=== PATIENT | female | born 1955 | race Caucasian/White ===

== ENCOUNTER 2025-01-22 10:15 | Outpatient (REF) | payer OTHER, SELFPAY ==
--- NOTE | ~2025-01-22 | XR_ITS ---
EXAMINATION: XR KNEE 3 VIEWS RIGHT HISTORY: M25.561 - Pain in right knee COMPARISON: There are no prior studies available for comparison. FINDINGS: Three views of the right knee are submitted. Osseous mineralization is normal. There is no fracture or dislocation. The joint spaces are preserved. The soft tissues are unremarkable. There is no joint effusion. XR/XR knee RT 3V IMPRESSION: Unremarkable examination of the right knee. Electronically signed by: Darren Gamble MD 01/22/2025 02:06 PM EDT
--- OUTSIDE RECORDS SUMMARY | 2025-01-23 11:01 | XMS_ITS | Clinical Summary ---
Author Organization [facility] Address [address] [facility] [address] [place], [place] [id number] Phone Care Team Providers Care Presser And Shaper Knitted Goods Name Role Phone Ayad Alatorre DNP Primary Care Provider [phone] Encounters Date Type Department Care Team Description 11/30/2024 Transcribe Orders Virtual Department [address] [place] [address] Sheridan Wilson PA Abnormal bone density screening [...] Info) Description 03/09/2025 9:45 AM EDT Appointment [facility], Bone Density - Main [facility] [address] [place] [address] Sheridan Wilson PA [address] [place] [address] Medical Devices Not on file Insurance MEDICARE REPLACEMENT MEDICARE REPLACEMENT MEDICARE REPLACEMENT Member Subscriber Plan / Payer (Ef fective 2024-Present) Name:Amy Bey Relation to Subscriber:Self Name:Amy Bey Payer ID:[id number] (NAIC) Group ID:Not on file Type:Medicare Address: [place] [id number] MEDICARE REPLACEMENT MEDICARE REPLACEMENT Member Subscriber Plan / Payer (Ef fective 2024-Present) Name:Amy Bey Relation to Subscriber:Self Name:Amy Bey Payer ID:[id number] (NAIC) Group ID:Not on file Type:Medicare Address: [place] [phone] Care Teams Presser And Shaper Knitted Goods Relationship Specialty Start Date End Date Ayad Alatorre, ABUNDIO [address] [place] [address] [address] [place] [address] PCP - General 12/19/24 Additional Source Comments The information contained in this document represents components of the legal health record. It is not the complete legal health record.[facility]
--- OUTSIDE RECORDS SUMMARY | 2025-01-23 11:01 | XMS_ITS | Encounter Summary ---
Author Organization [employer] Address [address] [facility] 7t [place] [address] Care Team Providers Care Ware Carrier Name Role Phone Sheridan Wilson PA-C Primary Care Provider [phone] Encounter Details Date Type Department Care Team (Late st Contact Info) Description 12/25/2024 Results Follow-Up [address] [address] Sheridan Wilson PA-C [address] [place] [address] XR Knee 1-2 Views Right Social History [...] the past 12 months, has t he [employer], gas, oil or water [employer] threatened to shut off services in your [...] Description 03/27/2025 10:20 AM EDT Office Visit [facility] [address] [place] [address] Sheridan Wilson PA-C [address] [place] [address] documented as of this encounter Visit Diagnoses Not on filedocumented in this encounter Additional Health Concerns Assessment Noted Time PHQ-9 Depression Total Score: 6 09/21/19 25 2:24 PM EDT documented as of this encounter Care Teams Ware Carrier Relationship Specialty Start Date End Date Sheridan Wilson PA-C [address] [place] [address] PCP - General Family Medicine 09/03/24 documented as of this encounter
== END 2025-01-22 10:16 | disposition home or self-care (01) ==
LOC: HO.HOSX 10:15
PROVIDERS: Visit Provider Orthopaedic Surgery
DX: M25.561 Pain in right knee (principal); M54.50 Low back pain, unspecified; M79.604 Pain in right leg
CPT/HCPCS: 73562

== ENCOUNTER 2025-01-22 13:51 | Outpatient (AMB) | payer OTHER, SELFPAY ==
--- NOTE | 2025-01-22 14:12 | MHC.OFFVIS ---
Vital Signs 01/22/25 14:13 Height 5 ft 1 in Weight 145 lb BMI 27.4 Intake Visit Reasons: [employer]MENT [employer]-Rt knee chronic pain, Low back pain Intake Note: Amy is a 69 year old male who presents with complaints of progressively worsening low back pain which radiates down her right leg as well as intermittent right knee pain. She describes her back pain as sharp and severe in nature. Her back pain has gotten worse over the last few years in spite of continued non operative treatments. She has failed the last 6 weeks of conservative treatment which has included Tylenol, anti-inflammatory medicines, trazodone, a home exercise program and physical therapy exercises. She also reports intermittent weakness in her right leg. She states that at this point her right knee pain is tolerable to her. The patient states that her back pain is ?excruciating? at times. Allergies Unable to Assess Allergy (Verified 01/22/25 14:14) Medication List - Last Reconciled 01/22/25 by Chalino Dela Cruz MD duloxetine 60 mg PO DAILY sildenafil (pulm.hypertension) 20 mg PO BID trazodone 100 mg PO BEDTIME PFSH Surgical History Hx of section Social History Household Members: None Housing: House Alcohol intake: current Alcohol intake frequency: a few times a week Patient Tobacco Use Status: Current everyday Tobacco user Tobacco use type: Cigarette Cigarettes Per Day: 12 e-Cigarette/Vaping Use: Never Used Use of substances other than those prescribed or required for medical reasons: Yes Substance Use Type: Marijuana Current occupational status: retired Cognitive needs: No Hearing needs: No Vision needs: Yes Physical Exam Vital Signs: BMI result Body Mass Index 27.4 Const Other: Well-nourished well-developed very friendly female awake alert and oriented x3 in no acute distress Back/Spine/Pelvis Other: Low back examination shows right-sided paraspinal muscle tenderness, pain with range of motion, positive straight leg raise test on the right at 70 degrees, 4/5 strength with testing of her right hip flexors and knee extensors when compared to 5/5 strength on her left side Extrem Other: Right knee examination shows a minimal effusion, mild crepitus with range of motion, mild discomfort with range of motion, no instability Results Reviewed Results Reviewed: X-rays of the patient's right knee show mild diffuse joint space narrowing, no acute bony abnormalities Assessment & Plan Assessment & Plan (1) Right knee pain: Code(s): M25.561 - Pain in right knee Category: Medical (2) Low back pain radiating to right leg: Code(s): M54.50 - Low back pain, unspecified; M79.604 - Pain in right leg Category: Medical Plan Ms. Bey presents with progressively worsening low back pain which radiates down her right leg as well as associated right leg weakness possibly due to lumbar stenosis or a disc herniation. Thus, I will send the patient for an MRI of her lumbar spine for further evaluation. I will see her back once the MRI is completed. She also has intermittent right knee discomfort due to early degenerative joint disease. At this point her right knee symptoms are tolerable to her. She will continue with her activity modifications. Feel free to call me at any time should questions regarding her orthopedic management arise. Thank you very much for asking me to see this very friendly patient. I spent 22 minutes in reviewing the patient's records and imaging studies, seeing the patient and documenting in the medical record. Orders: Orders XR knee RT 3V 01/22/25 M25.561 - Pain in right knee MR lumbar spine wo con Today M54.50 - Low back pain, unspecified, M79.604 - Pain in right leg Coding Level of Care Code New Pt Level 3 (32906) Complex EM visit Add On G2211 Diagnoses Right knee pain M25.561 Low back pain radiating to right leg M54.50; M79.604
[2025-01-22 14:13] VITALS: BMI 27.4
--- OUTSIDE RECORDS SUMMARY | 2025-01-22 14:14 | XMS_ITS | Encounter Summary ---
Author Organization [employer] Address [address] [facility] 7[address] [place] [address] Care Team Providers Care Boat Tender Name Role Phone Sheridan Wilson PA-C Primary Care Provider [phone] Encounter Details Date Type Department Care Team (Late st Contact Info) Description 12/25/2024 Results Follow-Up [address] [address] Sheridan Wilson PA-C [address] [place] [address] XR Knee 1-2 Views Right Social History Tobacco Use Types Packs/Day Years Used Date Smoking Tobacco: Every Day Cigarettes Smokeless Tobacco: Former Chew Alcohol Use Standard Drinks/Week Comments Not Asked 0 (1 standard drink = 0.6 oz pur e alcohol) occasional Alcohol Answer Date Recorded How often do you have a drink containing alcohol ? 2 12/25/2024 How many drinks containing a lcohol do you have on a typical day when you are drinking? 0 12/25/2024 How often do you have six or more drinks on one occasion? 0 12/25/2024 Depression Answer Date Recorded Patient Health Questionnaire-9 Score 6 09/20/2024 Patient Health Questionnaire-9 Score 6 09/20/2024 Last PHQ-9: Questionnaire Data Not on file 0 09/20/2024 Housing Stability Answer Date Recorded What is your housing situation today? I have alex patrick 09/20/[address] you li ve. Do you have problems with any of the following? None of the above 09/20/2024 Food Insecurity Answer Date Recorded Within the past 12 months, y ou worried that your food would run out before you got money to buy more: Never True 09/20/2024 Within the past 12 months,th e food you bought just didn't last and you didn't have enough money to get more: Never True 04/2025 Transportation Answer Date Recorded In the past 12 months, has l ack of transportation kept you from medical appts, meetings, work or from getting things needed for daily living? No 09/20/2024 Intimate Partner Violence Answer Date R ecorded Within the last year, have y ou been afraid of your partner or ex-partner? 2 09/20/2024 Within the last year, have y ou been humiliated or emotionally abused in other ways by your partner or ex-partner? 2 Within the last year, have y ou been kicked, hit, slapped, or otherwise physically hurt by your partner or ex-partner? 2 09/20/2024 Within the last year, have y ou been raped or forced to have any kind of sexual activity by your partner or ex-partner? 2 09/20/2024 Utilities Answer Date Recorded In the past 12 months, has t he [employer], gas, oil or water [employer] threatened to shut off services in your home? No 09/20/2024 Depression Answer Date Recorded Patient Health Questionnaire-2 Score 2 09/20/2024 Internet Access Answer Date Recorded Internet Access Q1 Yes 09/20/2024 Internet Access Q2 Not on file 09/20/2024 Comments Unknown Sex and Gender Information Value Date Recorded Sex Assigned at Female 09/03/2024 2:34 PM EDT Legal Sex Female 12:01 PM EDT Gender Identity Female 09/03/2024 2:34 PM EDT Sexual Orientation Straight 09/03/2024 2: 34 PM EDT documented as of this encounter Plan of Treatment Upcoming Encounters Date Type Department Care Team (Late st Contact Info) Description 03/27/2025 10:20 AM EDT Office Visit [facility] [address] [place] [address] Sheridan Wilson PA-C [address] [place] [address] documented as of this encounter Visit Diagnoses Not on filedocumented in this encounter Additional Health Concerns Assessment Noted Time PHQ-9 Depression Total Score: 6 09/21/19 25 2:24 PM EDT documented as of this encounter Care Teams Boat Tender Relationship Specialty Start Date End Date Sheridan Wilson PA-C [address] [place] [address] PCP - General Family Medicine 09/03/24 documented as of this encounter
--- OUTSIDE RECORDS SUMMARY | 2025-01-22 14:14 | XMS_ITS | Clinical Summary ---
Author Organization [facility] Address [address] [facility] [address] [place], [place] [id number] Phone Care Team Providers Care Lumber Piler Operator Name Role Phone Ayad Alatorre DNP Primary Care Provider [phone] Encounters Date Type Department Care Team Description 11/30/2024 Transcribe Orders Virtual Department [address] [place] [address] Sheridan Wilson PA Abnormal bone density screening (Primary Dx) from Last 3 Months Social History Tobacco Use Types Packs/Day Years Used Date Smoking Tobacco: Never Assessed Education Answer Date Recorded Are you interested in more education? Not on rafael e 12/26/2023 Are you concerned about learning? Not on file 12/26/2023 No 12/26/2023 No 12/26/2023 Digital Access Answer Date Recorded No 12/26/2023 No 12/26/2023 Reliable internet access at home? Not on file 12/26/2023 Device with a working camera? Not on file Comments Unknown Sex and Gender Information Value Date Recorded Sex Assigned at Not on file Legal Sex Female 9:52 PM EDT Gender Identity Not on file Sexual Orientation Not on file Plan of Treatment Upcoming Encounters Date Type Department Care Team (Late st Contact Info) Description 03/09/2025 9:45 AM EDT Appointment [facility], Bone Density - Main [facility] [address] [place] [address] Sheridan Wilson PA [address] [place] [address] Medical Devices Not on file Insurance MEDICARE REPLACEMENT MEDICARE REPLACEMENT MEDICARE REPLACEMENT Member Subscriber Plan / Payer (Ef fective 2024-Present) Name:Aym Bey Relation to Subscriber:Self Name:Amy Bey Payer ID:[id number] (NAIC) Group ID:Not on file Type:Medicare Address: [place] [id number] MEDICARE REPLACEMENT MEDICARE REPLACEMENT Member Subscriber Plan / Payer (Ef fective 2024-Present) Name:Amy Bey Relation to Subscriber:Self Name:Amy Bey Payer ID:[id number] (NAIC) Group ID:Not on file Type:Medicare Address: [place] [id number] Care Teams Lumber Piler Operator Relationship Specialty Start Date End Date Ayad Alatorre, ABUNDIO [address] [place] [address] [address] [place] [address] PCP - General 12/19/24 Additional Source Comments The information contained in this document represents components of the legal health record. It is not the complete legal health record.[facility]
== END 2025-01-22 14:27 | disposition home or self-care (01) ==
LOC: HO.HOS 13:52
PROVIDERS: PCP Student in an Organized Health Care Education/Training Program; Visit Provider Orthopaedic Surgery
DX: M25.561 Pain in right knee (principal); M54.50 Low back pain, unspecified; M79.604 Pain in right leg
CPT/HCPCS: 99203

== ENCOUNTER → 2025-01-22 13:53 | Outpatient (BNV) | payer OTHER, SELFPAY | PROVIDERS: Visit Provider Radiology Diagnostic Radiology | DX: M25.561 Pain in right knee (principal) | CPT/HCPCS: 73562 ==

== ENCOUNTER → 2025-02-08 13:04 | Outpatient (BNV) | payer OTHER, SELFPAY | PROVIDERS: Visit Provider Radiology Diagnostic Radiology | DX: M47.816 Spondylosis without myelopathy or radiculopathy, lumbar region (principal) | CPT/HCPCS: 72148 ==

== ENCOUNTER 2025-02-08 13:05 | Outpatient (REF) | payer OTHER, SELFPAY ==
--- NOTE | ~2025-02-08 | MR_ITS ---
EXAMINATION: MR LUMBAR SPINE WITHOUT CONTRAST CLINICAL INFORMATION: Low back pain, unspecified. COMPARISON: None available. TECHNIQUE: MRI of the lumbar spine was obtained using routine sequences without contrast. FINDINGS: Last rib-bearing vertebra labeled T12. No bone marrow STIR signal abnormality. Marginal osteophyte formation and disc desiccation, T10-11, T11-12 and from L2-3 to L5-S1. There is a grade 1 anterolisthesis L4-5 and to a lesser extent L3-4. Conus medullaris ends at pedicle of L1 with normal signal. T11-12: No disc herniation. No neuroforamina stenosis. T12-L1: Broad-based disc bulging. Facet joint hypertrophy. No compression upon neural elements. L1-2: Broad-based disc bulging. Facet joint hypertrophy. No compression upon neural elements. L2-3: Broad-based disc bulging. Facet joint and ligamentum flavum hypertrophy. Reduced AP diameter of the thecal sac and neuroforamina likely encroaching the L3 nerve root on the lateral recesses and the L2 exiting nerve roots. L3-4: Broad-based disc bulging. Facet joint and and ligamentum flavum hypertrophy. Grade 1 anterolisthesis resulting in central spinal canal and bilateral neuroforamina stenosis encroaching the neural elements. L4-5: Grade 1 anterolisthesis, broad-based disc bulging. Facet joint and ligamentum flavum hypertrophy resulting in central spinal canal and bilateral neuroforamina stenosis encroaching and probably compressing the neural elements. L5-S1: Broad-based disc bulging. Facet joint hypertrophy. No central spinal canal stenosis. Bilateral neuroforamina narrowing. No prevertebral compartment hematoma, mass or fluid collection. Soft tissue fullness, left adrenal gland. Hyperintense T2 lesion in the left kidney. Volume loss both psoas muscle. MR/MR lumbar spine wo con IMPRESSION: Multilevel spondylosis resulting in grade 1 anterolisthesis L4-5 and to a lesser extent L3-4 causing central spinal canal and bilateral neuroforamina stenosis at L4-5 and to a lesser extent L3-4. Electronically signed by: Jack Fitzgerald MD 02/10/2025 10:28 AM EDT
--- OUTSIDE RECORDS SUMMARY | 2025-02-08 13:13 | XMS_ITS | Encounter Summary ---
Author Organization [employer] Address [address] [facility] [address] [place] [address] Care Team Providers Care Community Relations Manager Name Role Phone Sheridan Wilson PA-C Primary Care Provider [phone] Encounter Details Date Type Department Care Team (Late st Contact Info) Description 12/12/2024 Orders Only [facility] [address] [place], [place] [id number] Provider, Not In System Social History Tobacco Use Types Packs/Day Years Used Date Smoking Tobacco: Every Day Cigarettes Smokeless Tobacco: Former Chew Alcohol Use Standard Drinks/Week Comments Not Asked 0 (1 standard drink = 0.6 oz pur e alcohol) occasional Depression Answer Date Recorded Patient Health Questionnaire-9 [...] the past 12 months, has t he [employer], gas, oil or water [employer] threatened to shut off services in your [...] Description 03/27/2025 10:20 AM EDT Office Visit [address] [address] Sheridan Wilson PA-C 8 [place] [address] documented as of this encounter Procedures Procedure Name Priority Date/Time Associated Diagnosis Comments MAMMOGRAPHY Routine 11/15/2024 11:04 AM EDT HM COLONOSCOPY Routine 03/10/2023 11:50 AM EDT documented in this encounter Results * Hm Mammography (11/15/2024 11:04 AM EDT) Anatomical Region Laterality Modality Other us Not In System Provider HEALTH MAINTENANCE Edited Result - Final * Hm Colonoscopy (03/10/2023 11:50 AM EDT) us Not In System Provider HEALTH MAINTENANCE Edited Result - Final documented in this encounter Visit Diagnoses Not on filedocumented in this encounter Additional Health Concerns Assessment Noted Time PHQ-9 Depression Total Score: 6 09/21/19 25 2:24 PM EDT documented as of this encounter Care Teams Community Relations Manager Relationship Specialty Start Date End Date Sheridan Wilson PA-C [address] [place] [address] PCP - General Family Medicine 09/03/24 documented as of this encounter
--- OUTSIDE RECORDS SUMMARY | 2025-02-08 13:13 | XMS_ITS | Clinical Summary ---
Author Organization [employer] Address [address] [facility] 7t [place] [address] Care Team Providers Care Radio Station Manager Name Role Phone Sheridan Wilson PA-C Primary Care Provider [phone] Allergies No known active allergies Medications Multiple Vitamin (multivitamin) tablet Take 1 tablet by mouth Once per day. Active b complex vitamins capsule Take 1 capsule by mouth Once per day. Active omega-3 (Fish Oil) 1200 MG capsule Take 1,200 mg by mouth Once per day. Active traZODone (Desyrel) 100 MG tabletIndications:I nsomnia, unspecified type Take 1 tablet (100 mg) by mouth at bedtime. 30 tablet 5 Active meclizine (Antivert) 25 MG tabletIndications:V ertigo Take 1 tablet (25 mg) by mouth if needed in the morning, at noon, and at bedtime for dizziness. 30 tablet 5 Active pregabalin (Lyrica) 100 MG capsuleIndications: Spinal stenosis of lumbar region, unspecified whether neurogenic claudication present Take 1 capsule (100 mg) by mouth 3 times daily. Take first dose at night to assess response 90 capsule 5 Active simvastatin (Zocor) 40 MG tabletIndications:H yperlipidemia, unspecified hyperlipidemia type Take 1 tablet (40 mg) by mouth at bedtime. 30 tablet 11 5 11/09/19 26 Active sildenafil (Revatio) 20 MG tabletIndications:R aynaud's disease without gangrene TAKE 1 TABLET BY MOUTH TWICE A DAY 180 tablet 1 5 Active DULoxetine (Cymbalta) [address] capsuleIndications: Anxiety,Spinal stenosis of lumbar region, unspecified whether neurogenic claudication present TAKE 1 CAPSULE (60 MG) BY MOUTH ONCE PER DAY. DO NOT CRUSH OR CHEW. 90 capsule 03/18/20 Active Active Problems Problem Noted Date Diagnosed Date Vertigo 09/20/2024 Anxiety 09/20/2024 Raynaud's disease without gangrene 09/20/2024 Assessment & Plan (12/25/2024 3:27 PM EDT): - Dactylitis present in all fingers. Worse since starting statin. - Discontinue statin. Refer to cardiology for ASCVD risk mitigation. - Screen for further autoimmune conditions today, given history of raynaud's and chronic pain syndromes. Orders: Rheumatoid Factor; Future JUDI Screen,IFA, with Reflex to Titer and Pattern; Future C-reactive Protein; Future Sed Rate by Modified Westergren; Future HLA-B27 Antigen; Future Spinal stenosis of cervicothoracic region 2024 Assessment & Plan (12/25/2024 3:27 PM EDT): - Pain not improved with Lyrica. Discontinue over course of 3 weeks. - Has tried multiple treatments including injections, PT, gabapentin, oxycodone. None have provided significant relief. - Not a surgical candidate per patient. Encounters Date Type Department Care Team Description 01/14/[address] [address] Sheridan Wilson PA-C 01/01/2025 Results Follow-Up [address] [address] Sheridan Wilson PA-C Rheumatoid Factor, JUDI Screen,IFA, with Reflex to Titer and Pattern, C-reactive Protein, Additional followed-up results: 3 12/25/2024 10:20 AM EDT Office Visit [address] [address] Sheridan Wilson PA-C Hand swelling (Primary Dx); Hyperlipidemia, unspecified hyperlipidemia type; Raynaud's disease without gangrene; Spinal stenosis of cervicothoracic region; Chronic pain of right knee 12/25/2024 Results Follow-Up [address] [address] Sheridan Wilson PA-C XR Knee 1-2 Views Right 12/25/[address] [address] Sheridan Wilson PA-C 12/16/[address] [phone] Sheridan Wilson PA-C Anxiety; Spinal stenosis of lumbar region, unspecified whether neurogenic claudication present 12/12/2024 Orders Only [facility] Information Management [address] [place] [address] Provider, Not In System 11/14/[address] [id number] Sheridan Wilson PA-C Raynaud's disease without gangrene from Last 3 Months Immunizations Immunization Administration Dates Next Due TD (adult), 2 Lf tetanus tox oid, preservative free, adsorbed 01/17/2018 Family History Medical History Relation Name Comments Dementia Mother Breast cancer Sister 1 Alzheimer's disease Sister 2 Relation Name Status Comments Mother Sister 1 Sister 2 Alive Social History Tobacco Use Types Packs/Day Years Used Date Smoking Tobacco: Every Day Cigarettes Smokeless Tobacco: Former Chew Tobacco Cessation:Ready to Q uit: Not Asked; Counseling Given: Not Answered Alcohol Use Standard Drinks/Week Comments Not Asked [...] the past 12 months, has t he electric, gas, oil or water company threatened to shut off services in your [...] Orientation Straight 09/03/2024 2: 34 PM EDT Last Filed Vital Signs Vital Sign Reading Time Taken Comments Blood Pressure 124/74 12/25/2024 10:20 AM EDT Pulse 85 09/20/2024 1:38 PM EDT Temperature 36.9 C (98.4 F) 09/20/2024 1:38 PM EDT Respiratory Rate - - Oxygen Saturation 91% 09/20/2024 1:38 PM EDT Inhaled Oxygen Concentration - - Weight 70.4 kg (155 lb 3.2 oz) 12/25/2024 10:20 AM EDT Height 156 cm (5' 1.42 ) 09/20/2024 1:38 PM EDT Body Mass Index 28.93 09/20/2024 1:38 PM EDT Plan of Treatment Upcoming Encounters Date Type Department Care Team (Late st Contact Info) Description 03/27/2025 10:20 AM EDT Office Visit [facility] [address] [place] [address] Sheridan Wilson PA-C [address] [place] [address] Health Maintenance Due Date Last Done Comments CT Colonography 1957 FIT DNA/Cologuard 1957 FIT 1957 FOBT 1957 Sigmoidoscopy 1957 Hepatitis C Screening 1975 DTaP/Tdap/Td Vaccines (1 - Tdap) 01/18/2018 01/17/2018 COVID-19 Vaccine ( season) 2024 04/01/2024, 05/02/2023, 05/01/2022, Additional history exists Influenza Vaccine (#1) 2025 , 05/02/2023, 05/01/2022 Depression Screening 09/20/2025 09/20/2024, 09/21/19 SDOH Screening 09/20/2025 09/20/2024 Tobacco Screening 10/21/2025 10/21/2024 Mammogram 11/15/2025 11/15/2024 Alcohol/Substance Use Screening 12/25/2025 12/25/2024 Colonoscopy 03/10/2028 03/10/2023 Colorectal Cancer Screening 03/10/2028 Lipid Panel 10/30/2029 10/30/2024 RSV Patients and Patients Aged 60 years or older (1 - 1-dose 75+ series) 2032 Zoster Vaccines Completed 09/15/2021, 07/05/2021 Pneumococcal Vaccine: 50+ Years Completed 12/21/2022 HIB Vaccines Aged Out No longer eligi ble based on patient's age to complete this topic HPV Vaccines Aged Out No longer eligi ble based on patient's age to complete this topic Hepatitis A Vaccines Aged Out No long er eligible based on patient's age to complete this topic Hepatitis B Vaccines Aged Out No long er eligible based on patient's age to complete this topic IPV Vaccines Aged Out No longer eligi ble based on patient's age to complete this topic Meningococcal B Vaccine Aged Out No l onger eligible based on patient's age to complete this topic Meningococcal Vaccine Aged Out No jessica armin eligible based on patient's age to complete this topic RSV under 20 months Aged Out No longe r eligible based on patient's age to complete this topic Rotavirus Vaccines Aged Out No longer eligible based on patient's age to complete this topic Procedures Procedure Name Priority Date/Time Associated Diagnosis Comments AMB REFERRAL TO ORTHOPAEDICS Routine 01/22/2025 Chronic pain of right knee JUDI SCREEN, IFA W/REFL TITER AND SCREEN POSITIVE Routine 12/25/2024 11:03 AM EDT HLA-B27 ANTIGEN Routine 12/25/2024 11:03 AM EDT Hand swelling SED RATE BY MODIFIED WESTERGREN Routine 12/25/2024 11:03 AM EDT Hand swelling C-REACTIVE PROTEIN Routine 12/25/2024 11 :03 AM EDT Hand swelling JUDI SCREEN, IFA, W/REFL TITER AND PATTERN Routine 12/25/2024 11:03 AM EDT Hand swelling Raynaud's disease without gangrene RHEUMATOID FACTOR Routine 12/25/2024 11: 03 AM EDT Hand swelling Raynaud's disease without gangrene COMPREHENSIVE METABOLIC PANEL Routine 11/20/2024 9:41 AM EDT Hypercalcemia HM MAMMOGRAPHY Routine 11/15/2024 11:04 AM EDT XR KNEE 1-2 VIEWS RIGHT Routine 11/15/2024 Chronic pain of right knee LIPID PANEL WITH REFLEX TO DIRECT LDL Routine 10/30/2024 11:09 AM EDT Lipid screening HM COLONOSCOPY Routine 03/10/2023 11:50 AM EDT from Last 3 Months or Most Recently Relevant to Health Maintenance Results * Referral to Orthopaedics (01/22/2025) Sheridan Wilson PA-C OUTPATIENT REFERRAL ORDERABLE S Final Result * (ABNORMAL) JUDI SCR, IFA W/Refl Titer and Pattern (12/25/2024 11:03 AM EDT) JUDI Titer 1:1280(H) titer [facility] [employer] Comment: Reference Range <1:40 Negative 1:40-1:80 Low Antibody Level >1:80 Elevated Antibody Level JUDI Pattern Nuclear, Centromer e(A) [facility] [employer] Comment: Centromere pattern is associated with limited cutaneous systemic sclerosis, CREST (Calcinosis, Raynaud's, Esophageal dysmotility, Sclerodactyly, Telangiectasia), primary biliary cholangitis (PBC), and other autoimmune diseases. AC-3: Centromere International Consensus on JUDI Patterns (https://doi.org/10.1515/bhsh-5501-4301) 12/25/2024 11:0 3 AM EDT 12/25/2024 11:04 AM EDT Sheridan Wilson PA-C LAB BLOOD ORDERABLES Final Re sult [facility] [address], [place] [address] [facility] [address] [place] [address] * HLA-B27 Antigen (12/25/2024 11:03 AM EDT) HLA-B27 Antigen Negative Negative [facility]As[facility] Blood Venous blood specimen / Unknown 12/25/2024 11:03 AM EDT 12/25/2024 11:04 AM EDT Sheridan Wilson PA-C LAB BLOOD ORDERABLES Final Re sult Performing Organization Address [facility] de Phone Number [address], [facility] [place] [address] [facility]/[place] [address] [place] [address] * Sed Rate by Modified Mengergren (12/25/2024 11:03 AM EDT) Pathologist [facility] Sed Rate By Modified Mengergren 6 < OR = 30 mm/h [facility] Blood Venous blood specimen / Unknown 12/25/2024 11:03 AM EDT 12/25/2024 11:04 AM EDT Sheridan Wilson PA-C LAB BLOOD ORDERABLES Final Re sult Performing Organization Address [facility] de Phone Number [facility] [address] [place] [address], [facility] [place] [address] [facility] [address] [place] [phone] * Rheumatoid Factor (12/25/2024 11:03 AM EDT) [facility] Rheumatoid Factor (RF) <10 <14 IU/mL [facility] Blood Venous blood specimen / Unknown 12/25/2024 11:03 AM EDT 12/25/2024 11:04 AM EDT Sheridan Wilson PA-C LAB BLOOD ORDERABLES Final Re sult Performing Organization Address [facility] de Phone Number [address], [facility] [place] [address] [facility] [address] [place] [phone] * C-reactive Protein (12/25/2024 11:03 AM EDT) C-Reactive Protein <3.0 <8.0 mg/L [facility] Blood Venous blood specimen / Unknown 12/25/2024 11:03 AM EDT 12/25/2024 11:04 AM EDT Sheridan Wilson PA-C LAB BLOOD ORDERABLES Final Re sult Performing Organization Address [facility]/ZIP Co de Phone Number [facility] [address], [place] [address] [facility] [address] [place] [address] * (ABNORMAL) JUDI Screen,IFA, with Reflex to Titer and Pattern (12/25/2024 11:03 AM EDT) [facility] JUDI Screen, IFA POSITIVE (A) NEGATIVE [facility] Comment: JUDI IFA is a first line screen for detecting the presence of up to approximately 150 autoantibodies in various autoimmune diseases. A positive JUDI IFA result is suggestive of autoimmune disease and reflexes to titer and pattern. Further laboratory testing may be considered if clinically indicated. For additional information, please refer to http://education.Nonpareil/faq/QTX618 (This link is being provided for informational/ educational purposes only.) Blood Venous blood specimen / Unknown 12/25/2024 11:03 AM EDT 12/25/2024 11:04 AM EDT Sheridan Wilson PA-C LAB BLOOD ORDERABLES Final Re sult Performing Organization Address City/[facility]/ZIP Co de Phone Number [address], [place] [address] [facility] [employer] [facility] [address] [place] [phone] * Comprehensive Metabolic Panel (11/20/2024 9:41 AM EDT) [facility] Glucose 93 65 - 99 mg/dL [facility] [employer] [facility] Comment: Fasting reference interval Urea Nitrogen (BUN) 11 7 - 25 mg/dL [facility] Creatinine, Serum 0.62 0.50 - 1.05 mg/dL [facility] eGFR 98 > OR = 60 mL/min/1. 73m2 [facility] BUN/Creatinine Ratio SEE NOTE: 6 - 22 (calc) [facility] Comment: Not Reported: BUN and Creatinine are within reference range. Sodium 139 135 - 146 mmol/L [facility] Potassium 5.3 3.5 - 5.3 mmol/L [facility] Chloride 108 98 - 110 mmol/L [facility] Carbon Dioxide 26 20 - 32 mmol/L [facility] Calcium 9.6 8.6 - 10.4 mg/dL [facility] Protein, Total 6.4 6.1 - 8.1 g/dL [facility] Albumin 3.7 3.6 - 5.1 g/dL [facility] Globulin 2.7 1.9 - 3.7 g/dL (calc) [facility] Albumin/Globuli n Ratio 1.4 1.0 - 2.5 (calc) [facility] Bilirubin, Total 0.2 0.2 - 1.2 mg/dL [facility] Alkaline Phosphatase 64 37 - 153 U/L [facility] AST 14 10 - 35 U/L [facility] ALT 12 6 - 29 U/L [facility] Blood Venous blood specimen / Unknown 11/20/2024 9:41 AM EDT 11/20/2024 9:41 AM EDT Narrative [facility] - 11/21/2024 9:29 AM EDT FASTING:YES FASTING: YES us Sheridan Wilson PA-C LAB BLOOD ORDERABLES Final Re sult [facility] [address], [place] [address] [facility] [address] [place] [address] * Hm Mammography (11/15/2024 11:04 AM EDT) Anatomical Region Laterality Modality Other Not In System Provider HEALTH MAINTENANCE Edited Result - Final * XR Knee 1-2 Views Right (11/15/2024) Anatomical Region Laterality Modality Lower Extremities, Knee Right Radiogra phic Imaging Sheridan Wilson PA-C IMG XR PROCEDURES Final Resul t * (ABNORMAL) Lipid Panel with Reflex to Direct LDL (10/30/2024 11:09 AM EDT) Cholesterol, Total 246(H) <200 mg/dL [facility] HDL Cholesterol 64 > OR = 50 mg/dL [facility] Triglycerides 140 <150 mg/dL [facility] LDL Cholesterol 156(H) mg/dL [facility] [place] [employer] Comment: Reference range: <100 Desirable range <100 mg/dL for primary prevention; <70 mg/dL for patients with CHD or diabetic patients with > or = 2 CHD risk factors. LDL-C is now calculated using the Paul-Perri calculation, which is a validated novel method providing better accuracy than the Friedewald equation in the estimation of LDL-C. Paul SS et al. MYRIAM. 2013;310(19): 8059-1331 (http://education.Clzby.[employer]/faq/WTM665) Chol/HDLC Ratio 3.8 <5.0 (calc) [facility] Non-HDL Cholesterol 182(H) <130 mg/dL [facility] Comment: For patients with diabetes plus 1 major ASCVD risk factor, treating to a non-HDL-C goal of <100 mg/dL (LDL-C of <70 mg/dL) is considered a therapeutic option. Blood 10/30/2024 11:0 9 AM EDT 10/30/2024 11:10 AM EDT Narrative [facility] - 10/31/2024 5:11 AM EDT SPLIT 10/23/2024 FROM [id number] Sheridan Wilson PA-C LAB BLOOD ORDERABLES Final Re sult [facility], [place] [address] [facility] [address] [place] [address] * Hm Colonoscopy (03/10/2023 11:50 AM EDT) us Not In System Provider HEALTH MAINTENANCE Edited Result - Final from Last 3 Months or Most Recently Relevant to Health Maintenance Insurance MEDICARE ADVANTAGE Care Teams Radio Station Manager Relationship Specialty Start Date End Date Sheridan Wilson PA-C [address] [place] [address] PCP - General Family Medicine 09/03/24
--- OUTSIDE RECORDS SUMMARY | 2025-02-08 13:13 | XMS_ITS | Encounter Summary ---
Author Organization [employer] Address [address] [facility] 7 [place] [address] Care Team Providers Care Window Glass Cutter Off Name Role Phone Sheridan Wilson PA-C Primary Care Provider [phone] Encounter Details Date Type Department Care Team ([facility] st Contact Info) Description 01/14/2025 Telephone [facility] [address] [place] [address] Sheridan Wilson PA-C [address] [place] [address] Social History Tobacco Use Types Packs/Day Years [...] the past 12 months, has t he [employer], gas, oil or water [employer] threatened to shut off services in your [...] PM EDT documented as of this encounter Miscellaneous Notes * Telephone Encounter - Jessa Marti - 01/15/2025 9:22 AM EDT Faxed OJOANN lisa, can only back date it to 01/13/25 * Telephone Encounter - Nely Ace - 01/14/2025 10:12 AM EDT Verified Insurance: Yes Referral Office:[facility] General Surgery Diagnosis Code:K57.20 Number of Visits Needed:12 NPI# of Facility: NPI# of Provider being referred to:[id number] Phone #: [phone] Fax #: [phone] Date of Service : 10/24/24 documented in this encounter Plan of Treatment Upcoming Encounters Date Type Department Care Team (Late st Contact Info) Description 03/27/2025 10:20 AM EDT Office Visit [address] [address] Sheridan Wilson PA-C [address] [place] [place] [address] documented as of this encounter Visit Diagnoses Not on filedocumented in this encounter Additional Health Concerns Assessment Noted Time PHQ-9 Depression Total Score: 6 09/21/19 25 2:24 PM EDT documented as of this encounter Care Teams Window Glass Cutter Off Relationship Specialty Start Date End Date Sheridan Wilson PA-C [address] [place] [address] PCP - General Family Medicine 09/03/24 documented as of this encounter
--- OUTSIDE RECORDS SUMMARY | 2025-02-08 13:13 | XMS_ITS | Encounter Summary ---
Author Organization [employer] Address [address] [facility] 7t [place] [address] Care Team Providers Care Pet Groomer Name Role Phone Sheridan Wilson PA-C Primary Care Provider [phone] Encounter Details Date Type Department Care Team (Late st Contact Info) Description 12/25/2024 Results Follow-Up [address] [address] Sheridan Wilson PA-C [address] [place] [address] XR Knee 1-2 Views Right Social History [...] the past 12 months, has t he [employer], gas, oil or water [employer] threatened to shut off services in your [...] Description 03/27/2025 10:20 AM EDT Office Visit [facility] [address] [place] [address] Sheridan Wilson PA-C [address] [place] [address] documented as of this encounter Visit Diagnoses Not on filedocumented in this encounter Additional Health Concerns Assessment Noted Time PHQ-9 Depression Total Score: 6 09/21/19 25 2:24 PM EDT documented as of this encounter Care Teams Pet Groomer Relationship Specialty Start Date End Date Sheriadn Wilson PA-C [address] [place] [address] PCP - General Family Medicine 09/03/24 documented as of this encounter
--- OUTSIDE RECORDS SUMMARY | 2025-02-08 13:13 | XMS_ITS | Encounter Summary ---
Author Organization [employer] Address [address] [place] [address] 7 [place] [address] Care Team Providers Care Certified Welding Inspector Name Role Phone Sheridan Wilson PA-C Primary Care Provider [phone] Reason for Referral * Consultation (Routine) - Authorized Specialty Diagnoses / Procedures Referred By Tommy anderson Referred To Contact Diagnoses Raynaud's disease without gangrene Positive JUDI (antinuclear antibody) Sheridan Wilson PA-C [address] [place] [address] Phone: tel: fax: Maribell Hebert MD [address] [place] [address] Phone: tel: fax: Referral ID Status Reason Start Date Expiration Date Visits Requested Visits Authorized [id number] Authorized Specialty Services Required 01/10/2025 01/10/2026 1 1 Encounter Details Date Type Department Care Team (Late st Contact Info) Description 01/01/2025 Results Follow-Up [facility] [address] [place] [address] Sheridan Wilson PA-C [address] [place] [address] Rheumatoid Factor, JUDI Screen,IFA, with Reflex to Titer and Pattern, C-reactive Protein, Additional followed-up results: 3 Social History Tobacco Use Types Packs/Day Years [...] is your housing situation today? I have alexhardeep patrick 09/20/[address] you [...] encounter Miscellaneous Notes * Telephone Encounter - Elena Ahmadi - 01/01/2025 1:24 PM EDT Returning a missed call for results. Please call again [phone] documented in this encounter Plan of Treatment Upcoming Encounters Date Type Department Care Team (Late st Contact Info) Description 03/27/2025 10:20 AM EDT Office Visit [address] [address] Sheridan Wilson PA-C [address] [place] [address] Scheduled Referrals Name Type Priority Associated Diagnoses Order Schedule Referral to Rheumatology Outpatient Referral Routine Raynaud's disease without gangrene Positive JUDI (antinuclear antibody) Expected: 01/01/2025 (Approximate), Expires: 01/01/2026 documented as of this encounter Visit Diagnoses Diagnosis Raynaud's disease without gangrene- Primary Positive JUDI (antinuclear antibody) Other and unspecified nonspecific immunological findings documented in this encounter Additional Health Concerns Assessment Noted Time PHQ-9 Depression Total Score: 6 09/21/19 2:24 PM EDT documented as of this encounter Care Teams Certified Welding Inspector Relationship Specialty Start Date End Date Sheridan Wilson PA-C [address] [place] [address] PCP - General Family Medicine 09/03/24 documented as of this encounter
--- OUTSIDE RECORDS SUMMARY | 2025-02-08 13:13 | XMS_ITS | Clinical Summary ---
Author Organization [facility] Address [address] [facility] [address] [place] [address] Phone Care Team Providers Care Test Data Developer Name Role Phone Dominiquepeter Ayad F SEISMIC OBSERVER Primary Care Provider [phone] Encounters Date Type Department Care Team Description 11/30/2024 Transcribe Orders Virtual Department [address] [place] [address] Sheridan Wilson PA Abnormal bone density screening [...] Info) Description 03/09/2025 9:45 AM EDT Appointment [facility], Bone Density - Main [facility] [address] [place] [address] Sheridan Wilson PA [address] [place] [address] Medical Devices Not on file Insurance MEDICARE REPLACEMENT MEDICARE REPLACEMENT MEDICARE REPLACEMENT Member Subscriber Plan / Payer (Ef fective 2024-Present) Name:Amy Bey Relation to Subscriber:Self Name:Amy Bey Payer ID:[id number] (NAIC) Group ID:Not on file Type:Medicare Address: [place] [id number] MEDICARE REPLACEMENT MEDICARE REPLACEMENT Member Subscriber Plan / Payer (Ef fective 2024-Present) Name:Amy Bey Relation to Subscriber:Self Name:Amy Bey Payer ID:[id number] (NAIC) Group ID:Not on file Type:Medicare Address: [place] [id number] Care Teams Test Data Developer Relationship Specialty Start Date End Date Ayad Alatorre NP [address] [place] [address] [address] [place] [address] PCP - General 12/19/24 Additional Source Comments The information contained in this document represents components of the legal health record. It is not the complete legal health record.[facility]
== END 2025-02-08 13:06 | disposition home or self-care (01) ==
LOC: HO.MRI 13:05
PROVIDERS: Visit Provider Orthopaedic Surgery
DX: M54.50 Low back pain, unspecified (principal); M79.604 Pain in right leg
CPT/HCPCS: 72148

== ENCOUNTER 2025-02-28 09:46 | Outpatient (REF) | payer OTHER, SELFPAY ==
--- NOTE | ~2025-02-28 | XR_ITS ---
Exam: 4 view lumbar spine. TECHNIQUE: AP, and lateral: Flexion, neutral, and extension view x-rays of the lumbar spine. Comparison MRI February 08, 2025 INDICATION: Low back pain FINDINGS: There is moderate atherosclerotic calcifications in the distal aorta and common iliac arteries. There are 5 nonrib-bearing lumbar segments. There is subtle anterolisthesis at L3-4. L4-5 demonstrates grade 1 anterolisthesis similar to the prior MRI. With flexion and extension, there is no sign of instability. There is facet sclerosis and osteophytes at L3-4, L4-5, and L5-S1. XR/XR lumbar spine 4V min Impression: L4-5 demonstrates grade 1 anterolisthesis without instability. There is facet osteoarthritis at L3-4, L4-5, and L5-S1. Electronically signed by: Rocco Matos MD 02/28/2025 10:39 AM EDT
--- NOTE | ~2025-02-28 | XR_ITS ---
EXAMINATION: XR LUMBAR SPINE 1 VIEW HISTORY: M54.50 - Low back pain, unspecified COMPARISON: Comparison is made with the prior examination performed earlier in the day. FINDINGS: Two flexion lateral views of the lumbar spine are submitted. Again seen is grade I spondylolisthesis of L4 on L5. There appears to be slight spondylolisthesis of L5 on S1 seen on one of the images. The vertebral bodies maintain normal height. There is calcification of the abdominal aorta. XR/XR lumbar spine 1V IMPRESSION: Grade I spondylolisthesis of L4 on L5. Probable slight spondylolisthesis of L5 on S1, seen only on one image. Electronically signed by: Darren Gamble MD 02/28/2025 11:30 AM EDT
== END 2025-02-28 09:47 | disposition home or self-care (01) ==
LOC: HO.HOSX 09:46
PROVIDERS: Referring Provider Orthopaedic Surgery; Visit Provider Physician Assistant
DX: M54.50 Low back pain, unspecified (principal); M79.604 Pain in right leg
CPT/HCPCS: 72020; 72110

== ENCOUNTER 2025-02-28 09:46 | Outpatient (AMB) | payer OTHER, SELFPAY ==
[2025-02-28 09:55] VITALS: BMI 29.3
--- NOTE | 2025-02-28 09:55 | HO.SPINEOV ---
Vital Signs 02/28/25 09:55 Height 5 ft 1 in Weight 155 lb BMI 29.3 Intake Visit Reasons: spinal stenosis Intake Note: Ms. Bey is here today c/o back,hip and knee pain. Rotary Drill Operator Required: No Allergies Unable to Assess Allergy (Verified 02/28/25 09:56) Physical Exam Vital Signs: BMI result Body Mass Index 29.3 Assessment & Plan Assessment & Plan (1) Low back pain radiating to right leg: Code(s): M54.50 - Low back pain, unspecified; M79.604 - Pain in right leg Category: Medical Plan Dear Dr Dela Cruz, Thank you for referring Mrs Bey to our office today. She is a very nice 69-year-old female who has had issues with her low back now for 20 years. It has gotten worse over the last few years. She describes as diffuse all encompassing pain in her low back that radiates down into her right buttock, right posterolateral thigh. It is aggravated with standing and walking. It can be present with sitting or lying down though. Through the years it has gotten steadily worse. She was seen at [facility] and underwent a rigorous amount of conservative treatment including physical therapy and cortisone injections. She underwent facet blocks in the lower area of her lumbar spine as well as follow-up rhizotomy but unfortunately the pain never went away. She was on Motrin for a long time but had to stop that is secondary to recent colon surgery. She just takes Tylenol now as needed but it really does not help all that much. The pain is intense and extremely debilitating. She has a lumbar MRI done here at [facility] showing facet arthropathy, spondylolisthesis and stenosis. PMH: She has history of Raynaud's, she has a history of diverticulitis, underwent colon resection last year with subsequent reversal of her ostomy. She has had surgery on her jaw, ankle and . Denies any cardiopulmonary problems, liver or kidney disease. No history of bleeding disorders, blood clots or cancer. Social hx: Smokes 3/4 of a pack a day, occasional marijuana, occasional alcohol Medications: Sildenafil which she takes for her Raynaud's, trazodone, duloxetine Allergies: None Physical exam: Awake alert oriented, tearful at times describing the amount of pain she is in. She walks with a limp an antalgic gait. Strength and reflexes are normal. Imaging review: Lumbar MRI done at [facility] in 2024, compared to MRI done at [facility] in 2021 demonstrates development of a grade 1 spondylolisthesis at L4-5. She has a relatively tall disc height. She has facet arthropathy at L4-5. Not reported on the radiology reading, but present on the study on the STIR sequence she has stress related edema in the pedicles of L4 and L5. X-rays done in the office demonstrate advancement anteriorly of the L4 body in an upright position suggestive of dynamic instability. Impression: 69-year-old female with chronic low back pain and right lower extremity pain presents for evaluation in the setting of a spondylolisthesis at L4-5 with facet arthropathy, STIR sequence showing some stress reaction in the pedicles of L4 and L5 with standing x-ray showing evidence of anterior translation of L4. This is best seen on the neutral steady, as the flexion studies are somewhat rotated. We repeated the study but it still is not great quality x-ray on the flexion view. Dr. Simpson is willing to offer her a transforaminal lumbar interbody fusion. Unfortunately we can not do an oblique lumbar interbody fusion given a history of abdominal surgery. We would like to understand her bone quality a little bit better 1st as she is a lifelong smoker and her x-rays seem to demonstrate some degree of osteopenia or osteoporosis. We did talk about quitting smoking 6 weeks prior to surgery to optimize her before surgery. She is going to come back and see us after we obtain noncontrast lumbar CT. At that point we can have a better discussion of the possible risk of pseudoarthrosis. We did briefly discuss transforaminal lumbar interbody fusion, risks, benefits etc.. Thank you for allowing us to care for your patient. The total time spent with this visit with this patient was 45 minutes reviewing history, physical exam, lumbar imaging review, and implementation of treatment plan or further diagnostic testing José Miguel Simpson MD,PhD [facility] Orders: Orders XR lumbar spine 4V min Today M54.50 - Low back pain, unspecified, M79.604 - Pain in right leg XR lumbar spine 1V Today M54.50 - Low back pain, unspecified, M79.604 - Pain in right leg Coding Level of Care Code New Pt Level 4 (54106) Diagnoses Low back pain radiating to right leg M54.50; M79.604
--- OUTSIDE RECORDS SUMMARY | 2025-02-28 10:22 | XMS_ITS | Encounter Summary ---
Author Organization [employer] Address [address] [facility] 7t [place] [address] Care Team Providers Care Body Shop Estimator Name Role Phone Sheridan Wilson PA-C Primary Care Provider [phone] Encounter Details Date Type Department Care Team (Late st Contact Info) Description 12/12/2024 Orders Only [facility] [address] [place], [place] [id number] Provider, Not In System Social History Tobacco [...] the past 12 months, has t he [employer], gas, oil or water [employer] threatened to shut off services in your [...] Description 03/27/2025 10:20 AM EDT Office Visit [address] [address] Sheridan Wilson PA-C 8 [place] [address] documented as of this encounter Procedures Procedure [...] documented as of this encounter Care Teams Body Shop Estimator Relationship Specialty Start Date End Date Sheridan Wilson PA-C [address] [place] [address] PCP - General Family Medicine 09/03/24 documented as of this encounter
--- OUTSIDE RECORDS SUMMARY | 2025-02-28 10:22 | XMS_ITS | Encounter Summary ---
Author Organization [employer] Address [address] [facility] 7 [place] [address] Care Team Providers Care Technical Illustrator Name Role Phone Sheridan Wilson PA-C Primary Care Provider [phone] Encounter Details Date Type Department Care Team ([facility] st Contact Info) Description 01/14/2025 Telephone [facility] [address] [place] [address] Sheridan Wilson PA-C [address] [place] [address] Social History Tobacco Use Types Packs/Day [...] the past 12 months, has t he [employer], gas, oil or water [place] threatened to shut off services in your [...] 10:12 AM EDT Verified Insurance: Yes Referral Office:[facility] General Surgery Diagnosis Code:K57.20 Number of Visits Needed:12 NPI# of Facility: NPI# of Provider being referred to:[id number] Phone #: [phone] Fax #: [phone] Date of Service : 10/24/24 documented in this encounter Plan of Treatment Upcoming Encounters Date Type Department Care Team (Late st Contact Info) Description 03/27/2025 10:20 AM EDT Office Visit [address] [address] Sheridan Wilson PA-C [address] [place] [address] documented as of this encounter Visit Diagnoses Not on filedocumented in this encounter Additional Health Concerns Assessment Noted Time PHQ-9 Depression Total Score: 6 09/21/19 25 2:24 PM EDT documented as of this encounter Care Teams Technical Illustrator Relationship Specialty Start Date End Date Sheridan Wilson PA-C 8 [place] [address] PCP - General Family Medicine 09/03/24 documented as of this encounter
--- OUTSIDE RECORDS SUMMARY | 2025-02-28 10:22 | XMS_ITS | Clinical Summary ---
Author Organization [employer] Address [address] [facility] 7t [place] [address] Care Team Providers Care Religious Ritual Slaughterer Name Role Phone Sheridan Wilson PA-C Primary Care Provider Allergies No known active allergies Medications Multiple [...] Type Department Care Team Description 01/14/[address] [address] Sheridan Wilson PA-C 01/01/2025 Results Follow-Up [address] [address] Sheridan Wilson PA-C Rheumatoid Factor, JUDI Screen,IFA, with Reflex to Titer and Pattern, C-reactive Protein, Additional followed-up results: 3 12/25/2024 10:20 AM EDT Office Visit [address] [address] Sheridan Wilson PA-C Hand swelling (Primary Dx); Hyperlipidemia, unspecified hyperlipidemia type; Raynaud's disease without gangrene; Spinal stenosis of cervicothoracic region; Chronic pain of right knee 12/25/2024 Results Follow-Up [address] [address] Sheridan Wilson PA-C XR Knee 1-2 Views Right 12/25/[address] [phone] Sheridan Wilson PA-C 12/16/[address] [address] Sheridan Wilson PA-C Anxiety; Spinal stenosis of lumbar region, unspecified whether neurogenic claudication present 12/12/2024 Orders Only [facility] Information Management [address] [place] [address] Provider, Not In System from Last 3 Months Immunizations Immunization Administration [...] the past 12 months, has t he [employer], gas, oil or water [employer] threatened to shut off services in your [...] Description 03/27/2025 10:20 AM EDT Office Visit [facility] [address] [place] [address] Sheridan Wilson PA-C [address] [place] [address] Health Maintenance Due Date Last Done Comments CT Colonography 1957 FIT DNA/Cologuard 1957 FIT 1957 FOBT 1957 Sigmoidoscopy 1957 Hepatitis C Screening 1975 DTaP/Tdap/Td Vaccines (1 - Tdap) 01/18/2018 01/17/2018 COVID-19 Vaccine ( season) 2025 04/01/2024, 05/02/2023, 05/01/2022, Additional history exists Influenza [...] EDT Hand swelling Raynaud's disease without gangrene HM MAMMOGRAPHY Routine 11/15/2024 11:04 AM EDT LIPID PANEL WITH REFLEX TO DIRECT LDL Routine 10/30/2024 11:09 AM EDT Lipid screening HM COLONOSCOPY Routine 03/10/2023 11:50 AM EDT from Last 3 Months or Most Recently Relevant to Health Maintenance Results * Referral to Orthopaedics (01/22/2025) us Sheridan Wilson PA-C OUTPATIENT REFERRAL ORDERABLE S Final Result * (ABNORMAL) JUDI SCR, IFA W/Refl Titer and Pattern (12/25/2024 11:03 AM EDT) JUDI Titer 1:1280(H) titer [employer] Comment: Reference Range <1:40 Negative 1:40-1:80 Low Antibody Level >1:80 Elevated Antibody Level JUDI Pattern Nuclear, Centromer e(A) [employer] [place] [employer] Comment: Centromere pattern is associated with limited cutaneous systemic sclerosis, CREST (Calcinosis, Raynaud's, Esophageal dysmotility, Sclerodactyly, Telangiectasia), primary biliary cholangitis (PBC), and other autoimmune diseases. AC-3: Centromere International Consensus on UJDI Patterns (https://doi.org/10.1515/fbdj-1362-0316) 12/25/2024 11:0 3 AM EDT 12/25/2024 11:04 AM EDT us Sheridan Wilson PA-C LAB BLOOD ORDERABLES Final Re sult Performing Organization Address City/[facility]/ZIP Co de Phone Number [address], [place] [address] [employer] [facility] [address] [address] * HLA-B27 Antigen (12/25/2024 11:03 AM EDT) HLA-B27 Antigen Negative Negative [facility]/Asher BEARD Blood Venous blood specimen / Unknown 12/25/2024 11:03 AM EDT 12/25/2024 11:04 AM EDT us Sheridan Wilson PA-C LAB BLOOD ORDERABLES Final Re sult [address], [place] [address] Ubaldo One[place] [address] [facility] KISHA Villatoro * Sed Rate by Ban Monk (12/25/2024 11:03 AM EDT) Sed Rate By Modified Aleshia 6 < OR = 30 mm/h [facility] Blood Venous blood specimen / Unknown 12/25/2024 11:03 AM EDT 12/25/2024 11:04 AM EDT Sheridan Wilson PA-C LAB BLOOD ORDERABLES Final Re sult Performing Organization Address [facility] Co de Phone Number [facility] [address] [place] [address], [place] [address] [employer] [place] [employer] [address] [place] [phone] * Rheumatoid Factor (12/25/2024 11:03 AM EDT) Rheumatoid Factor (RF) <10 <14 IU/mL [facility] [employer] Blood Venous blood specimen / Unknown 12/25/2024 11:03 AM EDT 12/25/2024 11:04 AM EDT Sheridan Wilson PA-C LAB BLOOD ORDERABLES Final Re sult Performing Organization Address [facility] Co de Phone Number [facility] [address] [place] [address], [place] [address] [employer] [place] [employer] [address] [place] [phone] * C-reactive Protein (12/25/2024 11:03 AM EDT) C-Reactive Protein <3.0 <8.0 mg/L [facility] [employer] Blood Venous blood specimen / Unknown 12/25/2024 11:03 AM EDT 12/25/2024 11:04 AM EDT Sheridan Wilson PA-C LAB BLOOD ORDERABLES Final Re sult [facility] [address], [place] [address] [employer] [place] [employer] [address] [place] [address] * (ABNORMAL) JUDI Screen,IFA, with Reflex to Titer and Pattern (12/25/2024 11:03 AM EDT) JUDI Screen, IFA POSITIVE (A) NEGATIVE [employer] [place] [employer] Comment: JUDI IFA is a first line screen for detecting the presence of up to approximately 150 autoantibodies in various autoimmune diseases. A positive JUDI IFA result is suggestive of autoimmune disease and reflexes to titer and pattern. Further laboratory testing may be considered if clinically indicated. For additional information, please refer to http://education.Memento/faq/FWI049 (This link is being provided for informational/ educational purposes only.) Blood Venous blood specimen / Unknown 12/25/2024 11:03 AM EDT 12/25/2024 11:04 AM EDT us Sheridan Wilson PA-C LAB BLOOD ORDERABLES Final Re sult [facility] [address], [place] [address] [employer] [place] [employer] [address] [place] [address] * Hm Mammography (11/15/2024 11:04 AM EDT) Anatomical Region Laterality Modality Other us Not In System Provider HEALTH MAINTENANCE Edited Result - Final * (ABNORMAL) Lipid Panel with Reflex to Direct LDL (10/30/2024 11:09 AM EDT) Cholesterol, Total 246(H) <200 mg/dL [employer] [place] [employer] HDL Cholesterol 64 > OR = 50 mg/dL [employer] [place] [employer] Triglycerides 140 <150 mg/dL [employer] [place] [employer] LDL Cholesterol 156(H) mg/dL [facility] [employer] [place] [employer] Comment: Reference range: <100 Desirable range <100 mg/dL for primary prevention; <70 mg/dL for patients with CHD or diabetic patients with > or = 2 CHD risk factors. LDL-C is now calculated using the Cinthia calculation, which is a validated novel method providing better accuracy than the Friedewald equation in the estimation of LDL-C. Paul LAU et al. MYRIAM. 2013;310(19): 6368-2662 (http://education.Augure.GreenWave Reality/faq/YOM996) Chol/HDLC Ratio 3.8 <5.0 (calc) [employer] [place] [employer] Non-HDL Cholesterol 182(H) <130 mg/dL [employer] [place] [employer] Comment: For patients with diabetes plus 1 major ASCVD risk factor, treating to a non-HDL-C goal of <100 mg/dL (LDL-C of <70 mg/dL) is considered a therapeutic option. Blood 10/30/2024 11:0 9 AM EDT 10/30/2024 11:10 AM EDT Narrative [facility] - 10/31/2024 5:11 AM EDT SPLIT 10/23/2024 FROM [id number] us Sheridan Wilson PA-C LAB BLOOD ORDERABLES Final Re sult [facility] [address] [place] [address] [employer] [place] [employer] [address] [place] [address] * Hm Colonoscopy (03/10/2023 11:50 AM EDT) us Not In System Provider HEALTH MAINTENANCE Edited Result - Final from Last 3 Months or Most Recently Relevant to Health Maintenance Insurance [facility] MEDICARE ADVANTAGE Care Teams Religious Ritual Slaughterer Relationship Specialty Start Date End Date Sheridan Wilson PA-C [address] [place] [address] PCP - General Family Medicine 09/03/24
--- OUTSIDE RECORDS SUMMARY | 2025-02-28 10:22 | XMS_ITS | Clinical Summary ---
Author Organization [facility] Address [address] [facility] [address] [place], [place] [phone] Phone Care Team Providers Care Vibrator Operator Name Role Phone Ayad Alatorre DNP Primary Care Provider [phone] Encounters Date Type Department Care Team Description 11/30/2024 Transcribe Orders Virtual Department [address] [place] [address] Sheridan Wilson PA Abnormal bone density screening [...] Info) Description 03/09/2025 9:45 AM EDT Appointment [facility], Bone Density - Main [facility] [address] [place] [address] Sheridan Wilson PA [address] [place] [address] [employer] Not on file Insurance MEDICARE REPLACEMENT MEDICARE REPLACEMENT MEDICARE REPLACEMENT Member Subscriber Plan / Payer (Ef fective 2024-Present) Name:Amy Bey Relation to Subscriber:Self Name:Amy Bey Payer ID:[id number] (NAIC) Group ID:Not on file Type:Medicare Address: [place] [id number] MEDICARE REPLACEMENT MEDICARE REPLACEMENT Member Subscriber Plan / Payer (Ef fective 2024-Present) Name:Amy Bey Relation to Subscriber:Self Name:Amy Bey Payer ID:[id number] (NAIC) Group ID:Not on file Type:Medicare Address: [place] [id number] Care Teams Vibrator Operator Relationship Specialty Start Date End Date Ayad Alatorre, ABUNDIO [address] [place] [address] [address] [place] [address] PCP - General 12/19/24 Additional Source Comments The information contained in this document represents components of the legal health record. It is not the complete legal health record.[facility]
--- OUTSIDE RECORDS SUMMARY | 2025-02-28 10:22 | XMS_ITS | Encounter Summary ---
Author Organization [employer] Address [address] [place] [address] 7 [place] [address] Care Team Providers Care Imaging Manager Name Role Phone Sheridan Wilson PA-C Primary Care Provider [phone] Reason for Referral * Consultation (Routine) - Authorized Specialty Diagnoses / Procedures Referred By Tommy anderson Referred To Contact Diagnoses Raynaud's disease without gangrene Positive JUDI (antinuclear antibody) Sheridan Wilson PA-C [address] [place] [address] Phone: tel: fax: Maribell Hebert MD [address] [place] [address] Phone: tel: fax: Referral ID Status Reason Start Date Expiration Date Visits Requested Visits Authorized [id number] Authorized Specialty Services Required 01/10/2025 01/10/2026 1 1 Encounter Details Date Type Department Care Team (Late st Contact Info) Description 01/01/2025 Results Follow-Up [facility][1] [address] [place] [address] Sheridan Wilson PA-C [address] [place] [address] Rheumatoid Factor, JUDI Screen,IFA, with Reflex [...] missed call for results. Please call again [phone] documented in this encounter Plan of Treatment Upcoming Encounters Date Type Department Care Team (Late st Contact Info) Description 03/27/2025 10:20 AM EDT Office Visit [address] [address] Sheridan Wilson PA-C [address] [place] [address] Scheduled Referrals Name Type Priority Associated Diagnoses [...] documented as of this encounter Care Teams Imaging Manager Relationship Specialty Start Date End Date Sheridan Wilson PA-C [address] [place] [address] PCP - General Family Medicine 09/03/24 documented as of this encounter
--- OUTSIDE RECORDS SUMMARY | 2025-02-28 10:22 | XMS_ITS | Encounter Summary ---
Author Organization [employer] Address [address] [facility] 7t [place] [address] Care Team Providers Care Rn Pediatric Icu Name Role Phone Sheridan Wilson PA-C Primary Care Provider [phone] Encounter Details Date Type Department Care Team (Late st Contact Info) Description 12/25/2024 Results Follow-Up [address] [address] Sheridan Wilson PA-C [address] [place] [address] XR Knee 1-2 Views Right Social History [...] the past 12 months, has t he [employer], gas, oil or water [employer] threatened to shut off services in your [...] Description 03/27/2025 10:20 AM EDT Office Visit [facility] [address] [place] [address] Sheridan Wilson PA-C 8 [place] [address] documented as of this encounter Visit Diagnoses Not on filedocumented in this encounter Additional Health Concerns Assessment Noted Time PHQ-9 Depression Total Score: 6 09/21/19 25 2:24 PM EDT documented as of this encounter Care Teams Rn Pediatric Icu Relationship Specialty Start Date End Date Sheridan Wilson PA-C [address] [place] [address] PCP - General Family Medicine 09/03/24 documented as of this encounter
== END 2025-02-28 11:00 | disposition home or self-care (01) ==
LOC: HO.HNS 09:47
PROVIDERS: Referring Provider Orthopaedic Surgery; Visit Provider Physician Assistant
DX: M54.50 Low back pain, unspecified (principal); M79.604 Pain in right leg
CPT/HCPCS: 99204

== ENCOUNTER → 2025-02-28 10:15 | Outpatient (BNV) | payer OTHER, SELFPAY | PROVIDERS: Referring Provider Orthopaedic Surgery; Visit Provider Radiology Diagnostic Radiology | DX: M54.50 Low back pain, unspecified (principal) | CPT/HCPCS: 72110 ==

== ENCOUNTER 2025-04-05 09:01 | Outpatient (REF) | payer OTHER, MEDICAID, SELFPAY ==
--- NOTE | ~2025-04-05 | CT_ITS ---
CLINICAL HISTORY: M54.50 - Low back pain, unspecified CT lumbar spine without contrast Comparison: MR - MR LUMBAR SPINE WO CON - 02/08/25 13:09 EDT Findings: Moderate multilevel facet arthropathy is present. Mild multilevel marginal osteophyte formation is also seen. Vertebral body heights and disc spaces are well-maintained. No acute fracture is identified. There is mild grade 1 anterolisthesis of L3 and and L4, similar to prior exam. Neural foraminal stenosis is seen at L3/4 and L4/5 bilaterally. There is no canal stenosis. Scattered atherosclerotic disease is present with 2.7 cm fusiform infrarenal abdominal aortic aneurysm. IMPRESSION: 1. Moderate degenerative changes in the lumbar spine, predominantly involving the facet joints. 2. Neural foraminal stenosis at L3/4 and L4/5 bilaterally. 3. Mild grade 1 anterolisthesis of L3 and L4, similar to prior exam. 4. 2.7 cm fusiform infrarenal abdominal aortic aneurysm. Recommend follow-up CT exam every 3 years. This document has been electronically signed by: Chelsea Olmstead on 04/08/2025 09:00:53
== END 2025-04-05 09:02 | disposition home or self-care (01) ==
LOC: HO.CT 09:01
PROVIDERS: PCP Student in an Organized Health Care Education/Training Program; Visit Provider Physician Assistant
DX: M54.50 Low back pain, unspecified (principal); M79.604 Pain in right leg; M48.061 Spinal stenosis, lumbar region without neurogenic claudication
CPT/HCPCS: 72131

== ENCOUNTER → 2025-04-05 09:06 | Outpatient (BNV) | payer OTHER, MEDICAID, SELFPAY | PROVIDERS: PCP Student in an Organized Health Care Education/Training Program; Visit Provider Radiology Vascular & Interventional Radiology | DX: M51.360 Other intervertebral disc degeneration, lumbar region with discogenic back pain only (principal); I71.43 Infrarenal abdominal aortic aneurysm, without rupture; M48.062 Spinal stenosis, lumbar region with neurogenic claudication | CPT/HCPCS: 72131 ==

== ENCOUNTER 2025-04-10 11:18 | Outpatient (AMB) | payer OTHER, MEDICAID, SELFPAY ==
--- NOTE | 2025-04-10 11:21 | MHC.OFFVIS ---
Vital Signs 04/10/25 11:22 Height 5 ft 1 in Weight 145 lb BMI 27.4 BP 167/91 H Blood Pressure Location Rt brachial Position Sitting Respiration 16 Pulse 95 Pulse Source Pulse Oximeter Pulse Oximetry (%) 96 Oxygen Delivery Method Room Air Intake Visit Reasons: NEUROFORAMINAL STENOSIS OF LUMBAR SPINE Pigment And Lacquer Mixer Required: No Accompanied by: Self / Same As Patient Allergies Unable to Assess Allergy (Verified 04/10/25 11:25) HPI Comments Details: Amy is very pleasant 70 years old female who presents in my office with complains on pain in the lower back with radiation of the pain down to the right lower extremity to the level of the knee but not below that level. She reports flexing forward as well as flexing backwards both aggravate her pain. Standing increases her pain. Laying down on the left side alleviate her pain. She is unable to sleep normally can not do activities of daily living, she is able to take care of herself but she is unable to function normally. She is retired individual. She reported that her pain started 20 years ago and she does not know what is the cause of her pain. She reports her pain in terms of tissue damage as jumping, flushing, shooting, sharp, cutting, lacerating, dull, aching, heavy sensation, fearful fried full and terrifying sensation. She had multiple images duration of the spinal surgery by Dr. Mancini MRI and CT scan. Those images demonstrated some stress reaction from the spondylolisthesis on the facet joints with moderate foraminal stenosis L4-5 and L5-S1. She had physical therapy 1.5 years ago and she reported minimal help with the pain. She had chiropractic manipulations when she was 22 years old she does not remember if it was helping her pain. She received shoulder injections but Nevro back injections by her primary care physician her past medical history significant for Raynaud phenomenon. She is taking sildenafil 20 mg b.i.d. and she has problem sleeping. No other past medical history. Her past surgical history significant for ankle fracture in 80 meniscal tear in 1989 and stomach and lower colon surgery in 2023. She admits smoking cigarettes (with Raynaud's syndrome!!!) She is smoking half a pack a day. She denies drinking alcohol drinks 1 cup of coffee a day and she consumes cannabis almost daily in the form of gummies. PFSH Surgical History Hx of section Social History Household Members: None Housing: House Alcohol intake: current Alcohol intake frequency: a few times a week Patient Tobacco Use Status: Current everyday Tobacco user Tobacco use type: Cigarette Cigarettes Per Day: 12 e-Cigarette/Vaping Use: Never Used Substance Use Type: Marijuana Current occupational status: retired Cognitive needs: No Hearing needs: No Vision needs: Yes Review of Systems Const All systems reviewed & are unremarkable except as noted in HPI and below ENT Reports Normal hearing present Neuro Reports Normal hearing present, Denies Abnormal speech present, Denies confusion and Denies Sensory deficit (Neuro) Psych Denies confusion Physical Exam Vital Signs: Last Vital Signs Pulse 95 04/10/25 11:22 Resp 16 04/10/25 11:22 BP 167/91 H 04/10/25 11:22 Pulse Ox 96 04/10/25 11:22 Oxygen Delivery Method Room Air 04/10/25 11:22 BMI result Body Mass Index 27.4 Const General: no acute distress; No confusion Orientation/consciousness: patient oriented x3 and No confusion Eyes General: appearance normal, both eyes and all related structures Pupils: Equal, round and reactive pupils present EOM: EOMs intact bilaterally Neck Neck: Yes full ROM Chest Chest palpation & inspection: normal inspection of the chest Resp Effort & Inspection: normal respiratory effort, able to speak in complete sentences, normal respiratory pattern, no audible wheezes and no cough Cardio Jugular venous distension: no JVD GI Inspection: Yes normal to inspection Back/Spine/Pelvis Other: Able to stand on bilateral tiptoes in bilateral heels without difficulty demonstrating normal strength of bilateral lower extremities. Denies any numbness in bilateral lower extremities. SLR is negative bilaterally. Lasegue test is negative bilaterally. Patellar reflexes +2 symmetrical bilateral, Achilles reflexes +1 symmetrical bilateral, Dennis test is positive on the right, loading spine test is positive bilaterally,, Gaenslen test is positive on the right, Bard test is positive on the right. Neuro General: patient oriented x3, gait normal and No confusion Cranial nerves: Yes CN's II-XII intact bilaterally, Yes Equal, round and reactive pupils present, Yes Normal hearing present and Yes Ability to bilaterally elevate shoulders present Speech: No Abnormal speech present Gait exam (Neuro): Normal gait present Motor exam (neuro): 5/5 motor strength present throughout Sensory Exam: No Sensory deficit (Neuro) Extrem General: No pedal edema Psych Speech and movement: Normal speech and movement present Affect: normal affect Attitude: cooperative Thought process: Normal thought process present Thought content: Normal thought content present Insight: Good insight present (Psych) Judgement: Good judgement present (Psych) Results Reviewed Results Reviewed: MR LUMBAR SPINE WITHOUT CONTRAST CLINICAL INFORMATION: Low back pain, unspecified. COMPARISON: None available. TECHNIQUE: MRI of the lumbar spine was obtained using routine sequences without contrast. FINDINGS: Last rib-bearing vertebra labeled T12. No bone marrow STIR signal abnormality. Marginal osteophyte formation and disc desiccation, T10-11, T11-12 and from L2-3 to L5-S1. There is a grade 1 anterolisthesis L4-5 and to a lesser extent L3-4. Conus medullaris ends at pedicle of L1 with normal signal. T11-12: No disc herniation. No neuroforamina stenosis. T12-L1: Broad-based disc bulging. Facet joint hypertrophy. No compression upon neural elements. L1-2: Broad-based disc bulging. Facet joint hypertrophy. No compression upon neural elements. L2-3: Broad-based disc bulging. Facet joint and ligamentum flavum hypertrophy. Reduced AP diameter of the thecal sac and neuroforamina likely encroaching the L3 nerve root on the lateral recesses and the L2 exiting nerve roots. L3-4: Broad-based disc bulging. Facet joint and and ligamentum flavum hypertrophy. Grade 1 anterolisthesis resulting in central spinal canal and bilateral neuroforamina stenosis encroaching the neural elements. L4-5: Grade 1 anterolisthesis, broad-based disc bulging. Facet joint and ligamentum flavum hypertrophy resulting in central spinal canal and bilateral neuroforamina stenosis encroaching and probably compressing the neural elements. L5-S1: Broad-based disc bulging. Facet joint hypertrophy. No central spinal canal stenosis. Bilateral neuroforamina narrowing. No prevertebral compartment hematoma, mass or fluid collection. Soft tissue fullness, left adrenal gland. Hyperintense T2 lesion in the left kidney. Volume loss both psoas muscle. IMPRESSION: Multilevel spondylosis resulting in grade 1 anterolisthesis L4-5 and to a lesser extent L3-4 causing central spinal canal and bilateral neuroforamina stenosis at L4-5 and to a lesser extent L3-4. Assessment & Plan Assessment & Plan (1) Spondylosis of lumbar region without myelopathy or radiculopathy: Code(s): M47.816 - Spondylosis without myelopathy or radiculopathy, lumbar region Category: Medical (2) Sacroiliac joint dysfunction of right side: Code(s): M53.3 - Sacrococcygeal disorders, not elsewhere classified Category: Medical (3) Chronic pain syndrome: Code(s): G89.4 - Chronic pain syndrome Category: Medical (4) Sacroiliitis: Code(s): M46.1 - Sacroiliitis, not elsewhere classified Category: Medical Plan There is moderate foraminal stenosis bilaterally on this patient MRI however on physical exam I do not believe her pain generators is coming from the nerve root compressions. Very prominent physical signs of spondylosis of the lumbar spine and right sacroiliac joint dysfunction. I will schedule this patient 1st for right sacroiliac joint injection diagnostic. I will see this patient immediately after the procedure. I suspect also that some of the patient is coming from bilateral facet joints after sacroiliac joint injection I will consider performing diagnostic bilateral L3-L4 dorsal ramus L5 medial branch blocks. She is also prescribed cyclobenzaprine in combination with duloxetine. I do not believe this is a good combination because it can lead to serotonin syndrome. I will start her on baclofen and I told her to stop taking duloxetine. Smoking cessation was discussed with the patient. I explained to the patient that smoking not only may lead to exacerbation of her Raynaud's syndrome and potential loss of fingers and toes it also may limit my choices with the definitive procedures I could offer eventually to the patient. I recommended her to go to her primary care physician and start smoking cessation using non nicotine medications like Chantix or bupropion. Medications: New baclofen 10 mg PO TID 90 tabs 6RF 30 days Patient Instructions: I here by testify that I spent 46 minutes in conversation with this patient as well as planning her care and organizing this note. Coding Level of Care Code New Pt Level 4 (28533) Diagnoses Spondylosis of lumbar region without myelopathy or radiculopathy M47.816 Sacroiliac joint dysfunction of right side M53.3 Chronic pain syndrome G89.4 Sacroiliitis M46.1
[2025-04-10 11:22] VITALS: BP 167/91; PULSE 95; RESP 16; O2SAT 96; BMI 27.4
--- OUTSIDE RECORDS SUMMARY | 2025-04-10 14:10 | XMS_ITS | Encounter Summary ---
Author Organization [employer] Address [address] [facility] [address]t [place] [address] Care Team Providers Care Edger Operator Name Role Phone Sheridan Wilson PA-C Primary Care Provider [phone] Encounter Details Date Type Department Care Team (Late st Contact Info) Description 03/06/2025 Orders Only [facility] [address] [place], [place] [id number] Provider, Not In System Social History Tobacco [...] Care Team (Late st Contact Info) Description 04/18/2025 10:00 AM EST Office Visit [facility] [address] [place] [address] Sheridan Wlison PA-C [address] [place] [address] documented as of this encounter Procedures Procedure Name Priority Date/Time Associated Diagnosis Comments XR SPINE LUMBAR 1 VIEW ONLY Routine 02/28/2025 1:01 PM EDT MRI LUMBAR SPINE WO CONTRAST Routine 02/08/2025 1:02 PM EDT documented in this encounter Results * XR Spine Lumbar 1 View Only (02/28/2025 1:01 PM EDT) Anatomical Region Laterality Modality Radiographic Светлана ging us Not In System Provider IMG XR PROCEDURES Edited Result - Final * MRI LUMBAR SPINE WO CONTRAST (02/08/2025 1:02 PM EDT) Anatomical Region Laterality Modality Magnetic Resonan ce us Not In System Provider IMG MRI PROCEDURES Edited Result - Final documented in this encounter Visit Diagnoses Not on filedocumented in this encounter Additional Health Concerns Assessment Noted Time PHQ-9 Depression Total Score: 6 09/21/19 25 2:24 PM EDT documented as of this encounter Care Teams Edger Operator Relationship Specialty Start Date End Date Sheridan Wilson PA-C [address] [place] [phone] PCP - General Family Medicine 09/03/24 documented as of this encounter
--- OUTSIDE RECORDS SUMMARY | 2025-04-10 14:10 | XMS_ITS | Encounter Summary ---
Author Organization [employer] Address [address] [facility] 7t [place] [address] Care Team Providers Care Driver'S Education Instructor Name Role Phone Sheridan Wilson PA-C Primary Care Provider [phone] Encounter Details Date Type Department Care Team (Late st Contact Info) Description 04/02/2025 Orders Only [facility] [address] [phone] Sheridan Wilson PA-C [address] [place] [address] Social History Tobacco Use Types Packs/Day Years [...] Description 04/18/2025 10:00 AM EST Office Visit [facility] [address] [place] [phone] Sheridan Wilson PA-C [address] [place] [address] documented as of this encounter Procedures Procedure Name Priority Date/Time Associated Diagnosis Comments DRUG TOX MONITORING 1, W/CONF, ORAL FLUID Routine 04/02/2025 9:40 AM EDT documented in this encounter Results * (ABNORMAL) Drug Toxicology Monitoring 1, with Confirmation, Oral Fluid (04/02/2025 9:40 AM EDT) Amphetamines NEGATIVE <10 ng/mL [facility] [place] Barbiturates NEGATIVE <10 ng/mL [facility] [place] [facility] Benzodiazepines NEGATIVE <0.50 ng/mL [facility] [place] [facility] Buprenorphine, Oral Fluid NEGATIVE <0.10 ng/mL [facility] [place] [facility] Cocaine, oral fluid NEGATIVE <5.0 ng/mL [facility] [place] [facility] Fentanyl NEGATIVE <0.10 ng/mL [facility] [place] [facility] Heroin Metabolite NEGATIVE <1.0 ng/mL [facility] [place] [facility] Marijuana, oral fluid POSITIVE(A) <2.5 ng/mL [facility] [place] [facility] THC 5.1(H) <2.5 ng/mL [facility] [place] [facility] MDMA Screen, Oral Fluid NEGATIVE <10 ng/mL [facility] [place] [facility] Meprobamate NEGATIVE <2.5 ng/mL [facility] [place] [facility] Methadone, Oral Fluid NEGATIVE <5.0 ng/mL [facility] [place] [facility] Nicotine Metabolite POSITIVE(A) <5.0 ng/mL [facility] [place] [facility] Cotinine 59.6(H) <5.0 ng/mL [facility] [place] [facility] Comment: Cotinine is a metabolite of nicotine. Opiates, oral fluid POSITIVE(A) <2.5 ng/mL [facility] [place] [facility] Codeine, Oral Fluid Negative <2.5 ng/mL [facility] [place] [facility] Dihydrocodeine Negative <2.5 ng/mL [facility] [place] [facility] Hydrocodone Negative <2.5 ng/mL [facility] [place] [facility] Hydromorphone, Oral Fluid Negative <2.5 ng/mL [facility] [place] [facility] Morphine Negative <2.5 ng/mL [facility] [place] [facility] Norhydrocodone Negative <2.5 ng/mL [facility] [place] [facility] Noroxycodone 6.0(H) <2.5 ng/mL [facility] [place] Comment: Noroxycodone is a metabolite of oxycodone. Oxycodone 10.0(H) <2.5 ng/mL [facility] [place] [facility] Oxymorphone Negative <2.5 ng/mL [facility] [place] Phencyclidine, oral fluid NEGATIVE <10 ng/mL [facility] [place] [facility] Tapentadol NEGATIVE <5.0 ng/mL [facility] [place] [facility] Tramadol, Oral Fluid NEGATIVE <5.0 ng/mL [facility] [place] [facility] Zolpidem NEGATIVE <5.0 ng/mL [facility] [place] Comment: For additional information, please refer to http://education.OpinionLab/faq/ABN544 (This link is being provided for informational/ educational purposes only.) This drug testing is for medical treatment only. Analysis was performed as non-forensic testing and these results should be used only by healthcare providers to render diagnosis or treatment, or to monitor progress of medical conditions. For assistance with interpreting these drug results, please contact a [facility] Toxicology Specialist: [phone] ( ), M-F, 8am-6pm EST. These tests were developed and their analytical performance characteristics have been determined by [facility]. They have not been cleared or approved by the FDA. These assays have been validated pursuant to the CLIA regulations and are used for clinical purposes. 04/02/2025 9:40 AM EDT 04/02/2025 9:40 AM EDT Sheridan Wilson PA-C LAB BODY FLUIDS AND STOOLS OR DERABLES Final Result Performing Organization Address City/State/[facility] Co de Phone Number [facility] [address], [place] [address] [facility] [address] [facility] [place] [address] documented in this encounter Visit Diagnoses Not on filedocumented in this encounter Additional Health Concerns Assessment Noted Time PHQ-9 Depression Total Score: 6 09/21/19 25 2:24 PM EDT documented as of this encounter Care Teams Driver'S Education Instructor Relationship Specialty Start Date End Date Sheridan Wilson PA-C [address] [place] [phone] PCP - General Family Medicine 09/03/24 documented as of this encounter
--- OUTSIDE RECORDS SUMMARY | 2025-04-10 14:10 | XMS_ITS | Encounter Summary ---
Author Organization [employer] Address [address] [facility] 7t [place] [address] Care Team Providers Care Farm Crew Leader Name Role Phone Sheridan Wilson PA-C Primary Care Provider [phone] Encounter Details Date Type Department Care Team (Late st Contact Info) Description 04/07/2025 Refill [facility] [address] [phone] Sheridan Wilson PA-C [address] [place] [address] Spinal stenosis of cervicothoracic region; Neuroforaminal stenosis of lumbar spine Social History Tobacco Use Types Packs/Day Years [...] encounter Miscellaneous Notes * Telephone Encounter - Marcy Beckett RN - 04/07/2025 11:40 AM EDT PCP: Sheridan Wilson PA-C Last in-person office visit: 04/02/25 with Sheridan Wilson PDMP last fill:04/02/25 for 4 days Refill due:04/06/25 Last contract date: Medication Management Contract 04/02/2025 Last tox screen date: No results found for: AMPHETAMINES , BARBITURATES , BENZODIAZEPI , BUPRENORPHIN , COCAINE , FENTANYL , HEROINMETAB , MARIJUANA , MDMA , MEPROBAMATE , METHADONE , NICOTINEMET , OPIATES , PHENCYCLIDIN , TAPENTADOL , TRAMADOL , ZOLPIDEM Assessment: [] Nursing protocol passed [] Contract due [] Toxicology due [] Appointment due [] PDMP red flags [x] Care plan adjustment needed Plan: [] Please approve refill for days [] Appointment with nursing: [] Appointment with Sheridan Wilson PA-C: Future Appointments Date Time Provider Department Center 04/18/2025 10:00 AM Sheridan Wilson PA-C [facility] Comments: * Telephone Encounter - Erika Odonnell - 04/07/2025 11:32 AM EDT Prescribing Provider: Medication Name:oxyCODONE (Roxicodone) Dosage: 5 mg 5 Days or More Supply: No [phone] Pharmacy: [facility]/pharmacy #[id number] [place] [address] documented in this encounter Plan of Treatment Upcoming Encounters Date Type Department Care Team (Late st Contact Info) Description 04/18/2025 10:00 AM EST Office Visit [address] [phone] Sheridan Wilson PA-C [address] [place] [address] documented as of this encounter Visit Diagnoses Diagnosis Spinal stenosis of cervicothoracic region Neuroforaminal stenosis of lumbar spine documented in this encounter Additional Health Concerns Assessment Noted Time PHQ-9 Depression Total Score: 6 09/21/19 25 2:24 PM EDT documented as of this encounter Care Teams Farm Crew Leader Relationship Specialty Start Date End Date Sheridan Wilson PA-C [address] [place] [address] PCP - General Family Medicine 09/03/24 documented as of this encounter
--- OUTSIDE RECORDS SUMMARY | 2025-04-10 14:10 | XMS_ITS | Encounter Summary ---
Author Organization [employer] Address [address] [facility] 7t [place] [address] Care Team Providers Care Sign Erector And Repairer Name Role Phone Sheridan Wilson PA-C Primary Care Provider [phone] Encounter Details Date Type Department Care Team (Late st Contact Info) Description 03/20/[address] [phone] Sheridan Wilson PA-C [address] [place] [address] Social History Tobacco Use Types Packs/Day [...] the past 12 months, has t he [employer], gas, oil or water [employer] threatened to shut off services in your [...] Telephone Encounter - Marcy Beckett RN - 03/20/2025 4:19 PM EDT PCP: Sheridan Wilson PA-C Last in-person office visit: 03/12/2025 Sheridan Wilson PA-C PDMP last fill:03/12 for 5 days Refill due:03/17 Last contract date: No scanned or signed documents on file Last tox screen date: No results found for: AMPHETAMINES , BARBITURATES , BENZODIAZEPI , BUPRENORPHIN , COCAINE , FENTANYL , HEROINMETAB , MARIJUANA , MDMA , MEPROBAMATE , METHADONE , NICOTINEMET , OPIATES , PHENCYCLIDIN , TAPENTADOL , TRAMADOL , ZOLPIDEM Assessment: [] Nursing protocol passed [] Contract due [] Toxicology due [x] Appointment due [] PDMP red flags [x] Care plan adjustment needed Plan: [] Please approve refill for days [] Appointment with nursing: [x] Appointment with Sheridan Wilson PA-C: scheduled Future Appointments Date Time Provider Department Center 03/27/2025 10:20 AM Sheridan Wilson PA-C [facility] 04/11/2025 12:40 PM Sheridan Wilson PA-C [facility] Comments: * Telephone Encounter - Gracie Weaver - 03/20/2025 1:25 PM EDT Prescribing Provider: Sheridan Wilson Medication Name: Oxycodone Dosage: 5 mg 5 Days or More Supply: No Pt has an appointment with Sheridan on 03/27. Pharmacy: [facility]/pharmacy #[id number] [place] [address] documented in this encounter Plan of Treatment Upcoming Encounters Date Type Department Care Team (Late st Contact Info) Description 04/18/2025 10:00 AM EST Office Visit [address] [phone] Sheridan Wilson PA-C [address] [place] [address] documented as of this encounter Visit Diagnoses Diagnosis Neuroforaminal stenosis of lumbar spine documented in this encounter Additional Health Concerns Assessment Noted Time PHQ-9 Depression Total Score: 6 09/21/19 25 2:24 PM EDT documented as of this encounter Care Teams Sign Erector And Repairer Relationship Specialty Start Date End Date Sheridan Wilson PA-C [address] [place] [address] PCP - General Family Medicine 09/03/24 documented as of this encounter
--- OUTSIDE RECORDS SUMMARY | 2025-04-10 14:10 | XMS_ITS | Encounter Summary ---
Author Organization [employer] Address [address] [facility] 7t [place] [address] Care Team Providers Care Rfid Systems Architect Name Role Phone Sheridan Wilson PA-C Primary Care Provider [phone] Encounter Details Date Type Department Care Team (Late st Contact Info) Description 2025 Orders Only [facility] [address] [employer], [place] [id number] Provider, Not In System Social History Tobacco [...] Description 04/18/2025 10:00 AM EST Office Visit [facility] 8 [place] [address] Sheridan Wilson PA-C 8 [place] [address] documented as of this encounter Procedures Procedure Name Priority Date/Time Associated Diagnosis Comments CT LUMBAR SPINE WO CONTRAST Routine 04/05/2025 9:23 AM EDT documented in this encounter Results * CT Lumbar Spine w/o Contrast (04/05/2025 9:23 AM EDT) Anatomical Region Laterality Modality Spine, L-spine Computed Tomogra phy us Not In System Provider IMG CT PROCEDURES Edited Result - Final documented in this encounter Visit Diagnoses Not on filedocumented in this encounter Additional Health Concerns Assessment Noted Time PHQ-9 Depression Total Score: 6 09/21/19 25 2:24 PM EDT documented as of this encounter Care Teams Rfid Systems Architect Relationship Specialty Start Date End Date Sheridan Wilson PA-C [address] [place] [address] PCP - General Family Medicine 09/03/24 documented as of this encounter
--- OUTSIDE RECORDS SUMMARY | 2025-04-10 14:10 | XMS_ITS | Encounter Summary ---
Author Organization [employer] Address [address] [facility] 7t [place] [address] Care Team Providers Care Transfer Driver Name Role Phone Sheridan Wilson PA-C Primary Care Provider Encounter Details Date Type Department Care Team (Late st Contact Info) Description 12/12/2024 Orders Only [place] [facility] [address] [place], [place] [phone] Provider, Not In System Social History Tobacco [...] the past 12 months, has t he [employer], gas, oil or water [employer] threatened to shut off services in your [...] Description 04/18/2025 10:00 AM EST Office Visit [address] [address] Sheridan Wilson PA-C 8 [place] [address] documented as of this encounter Procedures Procedure [...] documented as of this encounter Care Teams Transfer Driver Relationship Specialty Start Date End Date Sheridan Wilson PA-C [address] [place] [address] PCP - General Family Medicine 09/03/24 documented as of this encounter
--- OUTSIDE RECORDS SUMMARY | 2025-04-10 14:11 | XMS_ITS | Clinical Summary ---
Author Organization [employer] Address [address] [facility] 7t [place] [address] Care Team Providers Care Kineseologist Name Role Phone Sheridan Wilson PA-C Primary Care Provider [phone] Allergies No known active allergies Medications Multiple Vitamin (multivitamin) tablet Take 1 tablet by mouth Once per day. Active b complex vitamins capsule Take 1 capsule by mouth Once per day. Active omega-3 (Fish Oil) 1200 MG capsule Take 1,200 mg by mouth Once per day. Active traZODone (Desyrel) 100 MG tabletIndications: Insomnia, unspecified type Take 1 tablet (100 mg) by mouth at bedtime. 30 tablet 025 Active simvastatin (Zocor) 40 MG tabletIndications: Hyperlipidemia, unspecified hyperlipidemia type Take 1 tablet (40 mg) by mouth at bedtime. 30 tablet 11 025 2025 Active sildenafil (Revatio) 20 MG tabletIndications: Raynaud's disease without gangrene TAKE 1 TABLET BY MOUTH TWICE A DAY 180 tablet 1 025 Active DULoxetine (Cymbalta) [address] capsuleIndications :Anxiety,Spinal stenosis of lumbar region, unspecified whether neurogenic claudication present TAKE 1 CAPSULE (60 MG) BY MOUTH ONCE PER DAY. DO NOT CRUSH OR CHEW. 90 capsule 025 Active lidocaine (Lidoderm) 5 % patchIndications:S tutu stenosis of cervicothoracic region,Neuroforami nal stenosis of lumbar spine Apply 1 patch topically Once per day. Remove & discard patch within 12 hours or as directed by MD. 30 patch 1 025 Active cyclobenzaprine (Flexeril) 5 MG tabletIndications: Spinal stenosis of cervicothoracic region,Neuroforami nal stenosis of lumbar spine Take 1.5 tablets (7.5 mg) by mouth if needed in the morning, at noon, and at bedtime for muscle spasms (muscle spasm) for up to 10 days. 30 tablet 2024 Active oxyCODONE (Roxicodone) 5 MG immediate release tabletIndications: Spinal stenosis of cervicothoracic region,Neuroforami nal stenosis of lumbar spine Take 1 tablet (5 mg) by mouth every 6 (six) hours if needed for severe pain for up to 3 days. 12 tablet 2024 Active meclizine (Antivert) 25 MG tabletIndications: Vertigo Take 1 tablet (25 mg) by mouth if needed in the morning, at noon, and at bedtime for dizziness. 30 tablet 2024 Discontinued pregabalin (Lyrica) 100 MG capsuleIndications :Spinal stenosis of lumbar region, unspecified whether neurogenic claudication present Take 1 capsule (100 mg) by mouth 3 times daily. Take first dose at night to assess response 90 capsule 2024 Discontinued oxyCODONE (Roxicodone) 5 MG immediate release tabletIndications: Neuroforaminal stenosis of lumbar spine Take 1 tablet (5 mg) by mouth every 6 (six) hours if needed for severe pain for up to 5 days. 20 tablet 2024 oxyCODONE (Roxicodone) 5 MG immediate release tabletIndications: Spinal stenosis of cervicothoracic region,Neuroforami nal stenosis of lumbar spine Take 1 tablet (5 mg) by mouth every 6 (six) hours if needed for severe pain for up to 5 days. 15 tablet 2024 Discontinued(R eorder (will not trigger notification to Pharmacy)) oxyCODONE (Roxicodone) 5 MG immediate release tabletIndications: Spinal stenosis of cervicothoracic region,Neuroforami nal stenosis of lumbar spine Take 1 tablet (5 mg) by mouth every 6 (six) hours if needed for severe pain for up to 9 days. 15 tablet 04/07/ 2025 Discontinued(R eorder (will not trigger notification to Pharmacy)) Hospital, Clinic, or Other Facility Administered Medication Ordered Dose Route Frequency Start Date End Date Status ketorolac (Toradol) injection 30 mgIndications:Neuroforamina l stenosis of lumbar spine 30 mg IM Once 03/27/2025 Ended Active Problems Problem Noted Date Diagnosed Date [...] of cervicothoracic region 2024 Assessment & Plan (04/02/2025 10:17 AM EDT): - Ongoing severe pain limited QOL and ADLS. Not able to take NSAIDs due to GI history. Some relief with scheduled oxycodone. Previously has trialed gabapentin and lyrica without improvement in pain. - Will continue with scheduled oxycodone until she is able to meet with pain management at the end of this month. She is aware that medication will not be refilled after that point. - Ongoing follow up with spine specialists with CT upcoming to assess candidacy for surgery. - Will add lidocaine patches and muscle relaxer for further pain relief. - Strict fall precautions given. Discontinue muscle relaxer with any dizziness, take first dose in the evening to assess response. Orders: Drug Toxicology Monitoring 1, with Confirmation, Oral Fluid; Future lidocaine (Lidoderm) 5 % patch; Apply 1 patch topically Once per day. Remove & discard patch within 12 hours or as directed by MD. oxyCODONE (Roxicodone) 5 MG immediate release tablet; Take 1 tablet (5 mg) by mouth every 6 (six) hours if needed for severe pain for up to 9 days. cyclobenzaprine (Flexeril) 5 MG tablet; Take 1.5 tablets (7.5 mg) by mouth if needed in the morning, at noon, and at bedtime for muscle spasms (muscle spasm) for up to 10 days. Assessment & Plan (03/27/2025 1:53 PM EDT): - Administered Toradol injection for short-term pain relief. Follow-up appointment rescheduled to one week after April 11, 2025, to review imaging and management. - Risks and side effects: Discussed risk of opioid dependence with ongoing oxycodone use. - Evaluation scheduled with pain management end of this month. - Upcoming CT with ortho to determine candidacy for surgical intervention. Orders: ketorolac (Toradol) injection 30 mg oxyCODONE (Roxicodone) 5 MG immediate release tablet; Take 1 tablet (5 mg) by mouth every 6 (six) hours if needed for severe pain for up to 5 days. Assessment & Plan (12/25/2024 3:27 PM EDT): - Pain not improved with Lyrica. Discontinue over course of 3 weeks. - Has tried multiple treatments including injections, PT, gabapentin, oxycodone. None have provided significant relief. - Not a surgical candidate per patient. Encounters Date Type Department Care Team Description 2025 Orders Only [facility] Care Information Management [address] [place] [address] Provider, Not In System 04/07/2025 Refill [facility] [address] [facility] [address] [place] [address] Sheridan Wilson PA-C Spinal stenosis of cervicothoracic region; Neuroforaminal stenosis of lumbar spine 04/02/2025 8:20 AM EDT Office Visit [address] [phone] Sheridan Wilson PA-C Encounter for pain management (Primary Dx); Encounter for long-term (current) use of medications; Spinal stenosis of cervicothoracic region; Neuroforaminal stenosis of lumbar spine 04/02/2025 Orders Only [facility] [address] [address] Sheridan Wilson PA-C 03/27/2025 10:20 AM EDT Office Visit [address] [phone] Sheridan Wilson PA-C Trigger ring finger of left hand (Primary Dx); Spinal stenosis of cervicothoracic region; Neuroforaminal stenosis of lumbar spine; Hand swelling 03/27/[address] [address] Sheridan Wilson PA-C 03/20/[address] [address] Sheridan Wilson PA-C 03/12/2025 3:40 PM EDT Office Visit [address] [phone] Sheridan Wilson PA-C Polyarthralgia (Primary Dx); Encounter for immunization; Elevated antinuclear antibody (JUDI) level; Shortness of breath; Neuroforaminal stenosis of lumbar spine 03/12/[address] [address] Sheridan Wilson PA-C 03/12/2025 Telephone [facility] [address] [phone] Sheridan Wilson PA-C 03/06/2025 Orders Only [facility] Care Information Management [address] [place] [address] Provider, Not In System 03/05/[address] [address] Sheridan Wilson PA-C 01/14/[address] [phone] Sheridan Wilson PA-C from Last 3 Months Immunizations Immunization Administration Dates Next Due Influenza, High Dose Seasonal, Preservative Free 03/12/2025 Moderna Covid-19 Vaccine 12+ 03/12/2025 TD (adult), 2 Lf tetanus tox oid, [...] Sign Reading Time Taken Comments Blood Pressure 127/75 04/02/2025 8:26 AM EDT Pulse 110 04/02/2025 8:26 AM EDT Temperature 36.9 C (98.4 F) 09/20/2024 1:38 PM EDT Respiratory Rate - - Oxygen Saturation 99% 04/02/2025 8:26 AM EDT Inhaled Oxygen Concentration - - Weight 65.6 kg (144 lb 9.6 oz) 03/27/2025 10:19 AM EDT Height 156 cm (5' 1.42 ) 09/20/2024 1:38 PM EDT Body Mass Index 26.95 09/20/2024 1:38 PM EDT Plan of Treatment Upcoming Encounters Date Type Department Care Team (Late st Contact Info) Description 04/18/2025 10:00 AM EST Office Visit [facility] 8 [place] [phone] Sheridan Wilson PA-C 8 [place] [address] Health Maintenance Due Date Last Done Comments CT Colonography 1957 FIT DNA/Cologuard 1957 FIT 1957 FOBT 1957 Sigmoidoscopy 1957 Hepatitis C Screening 1975 DTaP/Tdap/Td Vaccines (1 - Tdap) 01/18/2018 01/17/2018 Depression Screening 09/20/2025 09/20/2024, 09/21/19 SDOH Screening 09/20/2025 09/20/2024 Mammogram 11/15/2025 11/15/2024 Alcohol/Substance Use Screening 12/25/2025 12/25/2024 Tobacco Screening 04/02/2026 04/02/2025 Colonoscopy 03/10/2028 03/10/2023 Colorectal Cancer Screening 03/10/2028 Lipid Panel 10/30/2029 10/30/2024 RSV Patients and Patients Aged 60 years or older (1 - 1-dose 75+ series) 2032 Zoster Vaccines Completed 09/15/2021, 07/05/2021 Pneumococcal Vaccine: 50+ Years Completed 12/21/2022 COVID-19 Vaccine Completed 03/12/2025, , 05/02/2023, Additional history exists Influenza Vaccine Completed 03/12/2025, , 05/02/2023, Additional history exists HIB Vaccines Aged Out No longer eligi [...] WO CONTRAST Routine 04/05/2025 9:23 AM EDT DRUG TOX MONITORING 1, W/CONF, ORAL FLUID Routine 04/02/2025 9:40 AM EDT XR SPINE LUMBAR 1 VIEW ONLY Routine 02/28/2025 1:01 PM EDT MRI LUMBAR SPINE WO CONTRAST Routine 02/08/2025 1:02 PM EDT AMB REFERRAL TO ORTHOPAEDICS Routine 01/22/2025 Chronic pain of right knee HM MAMMOGRAPHY Routine 11/15/2024 11:04 AM EDT LIPID PANEL WITH REFLEX TO DIRECT LDL Routine 10/30/2024 11:09 AM EDT Lipid screening HM COLONOSCOPY Routine 03/10/2023 11:50 AM EDT from Last 3 Months or Most Recently Relevant to Health Maintenance Results * CT Lumbar Spine w/o Contrast (04/05/2025 9:23 AM EDT) Anatomical Region Laterality Modality Spine, L-spine Computed Tomogra phy us Not In System Provider IMG CT PROCEDURES Edited Result - Final * (ABNORMAL) Drug Toxicology Monitoring 1, with Confirmation, Oral Fluid (04/02/2025 9:40 AM EDT) Amphetamines NEGATIVE <10 ng/mL [facility] [place] Barbiturates NEGATIVE <10 ng/mL [facility] [place] [facility] Benzodiazepines NEGATIVE <0.50 ng/mL [facility] [place] [facility] Buprenorphine, Oral Fluid NEGATIVE <0.10 ng/mL [facility] [place] [facility] Cocaine, oral fluid NEGATIVE <5.0 ng/mL [facility] [place] [facility] Fentanyl NEGATIVE <0.10 ng/mL [facility] [place] [facility] Heroin Metabolite NEGATIVE <1.0 ng/mL [facility] [place] Marijuana, oral fluid POSITIVE(A) <2.5 ng/mL [facility] [place] [facility] THC 5.1(H) <2.5 ng/mL [facility] [place] MDMA Screen, Oral Fluid NEGATIVE <10 ng/mL [facility] [place] [facility] Meprobamate NEGATIVE <2.5 ng/mL [facility] [place] [facility] Methadone, Oral Fluid NEGATIVE <5.0 ng/mL [facility] [place] [facility] Nicotine Metabolite POSITIVE(A) <5.0 ng/mL [facility] [place] Cotinine 59.6(H) <5.0 ng/mL [facility] [place] [facility] Comment: Cotinine is a metabolite of nicotine. Opiates, oral fluid POSITIVE(A) <2.5 ng/mL [facility] [place] [facility] Codeine, Oral Fluid Negative <2.5 ng/mL [facility] [place] [facility] Dihydrocodeine Negative <2.5 ng/mL [facility] [place] [facility] Hydrocodone Negative <2.5 ng/mL [facility] [place] [facility] Hydromorphone, Oral Fluid Negative <2.5 ng/mL [facility] [place] [facility] Morphine Negative <2.5 ng/mL [facility] [place] [facility] Norhydrocodone Negative <2.5 ng/mL [facility] [place] [facility] Noroxycodone 6.0(H) <2.5 ng/mL [facility] [place] Comment: Noroxycodone is a metabolite of oxycodone. Oxycodone 10.0(H) <2.5 ng/mL [facility] [place] [facility] Oxymorphone Negative <2.5 ng/mL [facility] [place] [facility] Phencyclidine, oral fluid NEGATIVE <10 ng/mL [facility] [place] [facility] Tapentadol NEGATIVE <5.0 ng/mL [facility] [place] [facility] Tramadol, Oral Fluid NEGATIVE <5.0 ng/mL [facility] [place] Zolpidem NEGATIVE <5.0 ng/mL [facility] [place] Comment: For additional information, please refer to http://education.[employer]vice[employer]a/faq/MRR331 (This link is being provided for informational/ educational purposes only.) This drug testing is for medical treatment only. Analysis was performed as non-forensic testing and these results should be used only by healthcare providers to render diagnosis or treatment, or to monitor progress of medical conditions. For assistance with interpreting these drug results, please contact a [employer] Toxicology Specialist: [phone] ( ), M-F, 8am-6pm EST. These tests were developed and their analytical performance characteristics have been determined by [employer]. They have not been cleared or approved by the FDA. These assays have been validated pursuant to the CLIA regulations and are used for clinical purposes. 04/02/2025 9:40 AM EDT 04/02/2025 9:40 AM EDT us Sheridan Wilson PA-C LAB BODY FLUIDS AND STOOLS OR DERABLES Final Result [facility] [address], [place] [address] [employer] [facility] [address] [facility] [place] [address] * XR Spine Lumbar 1 View Only (02/28/2025 1:01 PM EDT) Anatomical Region Laterality Modality Radiographic Светлана ging us Not In System Provider IMG XR PROCEDURES Edited Result - Final * MRI LUMBAR SPINE WO CONTRAST (02/08/2025 1:02 PM EDT) Anatomical Region Laterality Modality Magnetic Resonan ce us Not In System Provider IMG MRI PROCEDURES Edited Result - Final * Referral to Orthopaedics (01/22/2025) us Sheridan Wilson PA-C OUTPATIENT REFERRAL ORDERABLE S Final Result * Hm Mammography (11/15/2024 11:04 AM EDT) Anatomical Region Laterality Modality Other us Not In System Provider HEALTH MAINTENANCE Edited Result - Final * (ABNORMAL) Lipid Panel with Reflex to Direct LDL (10/30/2024 11:09 AM EDT) Cholesterol, Total 246(H) <200 mg/dL [employer] [place] [facility] HDL Cholesterol 64 > OR = 50 mg/dL [facility] Triglycerides 140 <150 mg/dL [employer] [place] [facility] LDL Cholesterol 156(H) mg/dL [facility] [employer] Comment: Reference range: <100 Desirable range <100 mg/dL for primary prevention; <70 mg/dL for patients with CHD or diabetic patients with > or = 2 CHD risk factors. LDL-C is now calculated using the Paul-Perri calculation, which is a validated novel method providing better accuracy than the Friedewald equation in the estimation of LDL-C. Paul LAU et al. MYRIAM. 2013;310(19): 0085-7167 (http://education.Oviceversa/faq/MTI170) Chol/HDLC Ratio 3.8 <5.0 (calc) [facility] Non-HDL Cholesterol 182(H) <130 mg/dL [facility] Comment: For patients with diabetes plus 1 major ASCVD risk factor, treating to a non-HDL-C goal of <100 mg/dL (LDL-C of <70 mg/dL) is considered a therapeutic option. Blood 10/30/2024 11:0 9 AM EDT 10/30/2024 11:10 AM EDT Narrative [facility] - 10/31/2024 5:11 AM EDT SPLIT 10/23/2024 FROM [id number] us Sheridan Wilson PA-C LAB BLOOD ORDERABLES Final Re sult [facility] [address], [place] [address] [facility] [address] [place] [address] * Hm Colonoscopy (03/10/2023 11:50 AM EDT) us Not In System Provider HEALTH MAINTENANCE Edited Result - Final from Last 3 Months or Most Recently Relevant to Health Maintenance Insurance [facility] MEDICARE ADVANTAGE [facility] Care Teams Kineseologist Relationship Specialty Start Date End Date Sheridan Wilson PA-C [address] [place] [id number] PCP - General Family Medicine 09/03/24
--- OUTSIDE RECORDS SUMMARY | 2025-04-10 14:11 | XMS_ITS | Encounter Summary ---
Author Organization [facility] Address [address] [facility] [address] [place], [place] [id number] Phone Care Team Providers Care Data Entry Technician Name Role Phone Sheridan Wilson Primary Care Provider [phone] Reason for Referral * Consultation (Within 1 month) - New Request Specialty Diagnoses / Procedures Referred By Contcait t Referred To Contact Rheumatology Diagnoses Raynaud's disease without gangrene Sheridan Wilson PA [address] [place] [address] Phone: tel: fax: [facility] [address] [place] [address] Phone: tel: Referral ID Status Reason Start Date Expiration Date V isits Requested Visits Authorized [id number] New Request 2025 2026 1 1 Encounter Details Date Type Department Care Team (Latest Contact Info) Description 2025 Transcribe Orders [facility] Rheumatology - Virtual Department [address] [place] [address] Sheridan Wilson PA [address] [place] [phone] Raynaud's disease without gangrene (Primary Dx) Social History Tobacco Use Types Packs/Day Years [...] on file Sexual Orientation Not on file documented as of this encounter Plan of Treatment Upcoming Encounters Date Type Department Care Team (Late st Contact Info) Description 04/15/2025 10:00 AM EST Office Visit [facility] [address] [place] [address] Sheridan Wilson PA [address] [place] [address] Erin Mcdonnell, OT [address] [place] [address] [email or web address] 04/22/2025 10:00 AM EST Office Visit [facility] [address] [place] [address] Sheridan Wilson PA [address] [place] [address] Erin Mcdonnell, OT [address] [place] [address] [email or web address] 04/24/2025 10:00 AM EST Office Visit [address] [place] [address] Sheridan Wilson PA [address] [place] [address] Erin Mcdonnell, OT [address] [place] [address] [email or web address] 04/29/2025 10:00 AM EST Office Visit [facility] [address] [place] [address] Sheridan Wilson PA [address] [place] [address] Erin Mcdonnell, OT [address] [place] [address] [email or web address] 05/14/2025 3:00 PM EST Appointment [facility] PFT Lab [address] [place] [address] Sheridan Wilson PA [address] [place], [place] [phone] 08/07/2025 2:15 PM EST Appointment [facility] [address] [place] [address] Sheridan Wilson PA [address] [place], [place] [phone] Scheduled Referrals Name Type Priority Associated Diagnoses Order Schedule Ambulatory referral to [facility] Rheumatology Outpatient Referral Routine Raynaud's disease without gangrene Ordered: 2025 documented as of this encounter Visit Diagnoses Diagnosis Raynaud's disease without gangrene- Primary documented in this encounter Care Teams Data Entry Technician Relationship Specialty Start Date End Date Sheridan Wilson PA [address] [place] [phone] PCP - General Physician Cap Jewel Plate Assembler 04/02/25 documented as of this encounter Additional Source Comments The information contained in this document represents components of the legal health record. It is not the complete legal health record.[facility]
--- OUTSIDE RECORDS SUMMARY | 2025-04-10 14:11 | XMS_ITS | Encounter Summary ---
Author Organization [employer] Address [address] [facility] 7 [place] [address] Care Team Providers Care Fireproof Door Maker Name Role Phone Sheridan Wilson PA-C Primary Care Provider [phone] Encounter Details Date Type Department Care Team ([facility] st Contact Info) Description 01/14/2025 Telephone [facility] [address] [place] [address] Sheridan Wilson PA-C [address] [place] [address] Social History Tobacco Use Types Packs/Day [...] the past 12 months, has t he [employer], gas, oil or water [employer] threatened to shut off services in your [...] 10:12 AM EDT Verified Insurance: Yes Referral Office:[facility] Diagnosis Code:K57.20 Number of Visits Needed:12 NPI# of Facility: NPI# of Provider being referred to:[id number] Phone #: [phone] Fax #: [phone] Date of Service : 10/24/24 documented in this encounter Plan of Treatment Upcoming Encounters Date Type Department Care Team (Late st Contact Info) Description 04/18/2025 10:00 AM EST Office Visit [facility] [address] [place] [address] Sheridan Wilson PA-C [address] [place] [address] documented as of this encounter Visit Diagnoses Not on filedocumented in this encounter Additional Health Concerns Assessment Noted Time PHQ-9 Depression Total Score: 6 09/21/19 25 2:24 PM EDT documented as of this encounter Care Teams Fireproof Door Maker Relationship Specialty Start Date End Date Sheridan Wilson PA-C [address] [place] [address] PCP - General Family Medicine 09/03/24 documented as of this encounter
--- OUTSIDE RECORDS SUMMARY | 2025-04-10 14:11 | XMS_ITS | Clinical Summary ---
Author Organization [facility] Address [address] [place] [address] Phone Care Team Providers Care Burn Table Operator Name Role Phone Sheridan Wilson Primary Care Provider [phone] Encounters Date Type Department Care Team Description 2025 Transcribe Orders [facility] Rheumatology - Virtual Department [address] [place] [address] Sheridan Wilson PA Raynaud's disease without gangrene (Primary Dx) 03/27/2025 Transcribe Orders [facility] [address] [place] [address] Sheridan Wilson PA Encounter for rehabilitation (Primary Dx) 03/18/2025 Transcribe Orders Virtual Department [address] [place] [address] Sheridan Wilson PA SOB (shortness of breath) (Primary Dx) from Last 3 Months Social [...] Description 04/15/2025 10:00 AM EST Office Visit [facility] [address] [place] [address] Sheridan Wilson PA 8 [place] [address] Erin Mcdonnell, OT [address] [place] [address] [email or web address] 04/22/2025 10:00 AM EST Office Visit [facility] 8 [place] [address] Sheridan Wilson PA 8 [place] [address] Erin Mcdonnell, OT [address] [place] [address] [email or web address] 04/24/2025 10:00 AM EST Office Visit [address] [address] Sheridan Wilson PA 8 [place] [address] Erin Mcdonnell, OT [address] [place] [address] [email or web address] 04/29/2025 10:00 AM EST Office Visit [address] [address] Sheridan Wilson PA 8 [place] [address] Erin Mcdonnell, OT [address] [place] [address] [email or web address] 05/14/2025 3:00 PM EST Appointment [facility] [address] [place] [address] Sheridan Wilson PA 8 [place] [address] 08/07/2025 2:15 PM EST Appointment [facility], Bone Density - [facility] 30 [place] [address] Sheridan Wilson PA [address] [place] [address] Health Maintenance Due Date Last Done Comments Adult Td,Tdap Booster 1957 LIPID PANEL 1957 DEPRESSION SCREENING 1969 SMOKING Hx and SMOKELESS TOB ACCO SCREENING 1970 HEPATITIS C SCREENING 1975 MAMMOGRAM 1997 COLOGUARD 2002 COLONOSCOPY 2002 COLORECTAL CANCER SCREENING 2002 FIT TEST 2002 FOBT 2002 SIGMOIDOSCOPY 2002 VIRTUAL COLONOSCOPY 2002 PNEUMOCOCCAL VACCINES (50+ y ears) (1 of 1 - PCV) 2007 ZOSTER VACCINES (1 of 2) 2007 OSTEOPOROSIS SCREENING INITI AL (ONE-TIME) 2022 INFLUENZA VACCINE (#1) 2025 COVID-19 VACCINE (1 - 2024-2 6 season) 2025 RSV VACCINE (1 - 1-dose 75+ series) 2032 HEPATITIS A VACCINES Aged Out No long er eligible based on patient's age to complete this topic HIB VACCINES Aged Out No longer eligi ble based on patient's age to complete this topic MENINGOCOCCAL VACCINES (ACWY) Aged Out No longer eligible based on patient's age to complete this topic MENINGOCOCCAL VACCINES (B) Aged Out N o longer eligible based on patient's age to complete this topic Medical Devices Not on file Insurance MEDICARE REPLACEMENT MEDICARE REPLACEMENT MEDICARE REPLACEMENT MEDICARE REPLACEMENT MEDICARE REPLACEMENT MEDICARE REPLACEMENT Care Teams Burn Table Operator Relationship Specialty Start Date End Date Sheridan Wilson PA [address] [place] [address] PCP - General Physician Low Voltage Electrician 04/02/25 Additional Source Comments The information contained in this document represents components of the legal health record. It is not the complete legal health record.[facility]
== END 2025-04-10 12:00 | disposition home or self-care (01) ==
PROVIDERS: Visit Provider Anesthesiology
DX: M47.816 Spondylosis without myelopathy or radiculopathy, lumbar region (principal); M53.3 Sacrococcygeal disorders, not elsewhere classified; G89.4 Chronic pain syndrome; M46.1 Sacroiliitis, not elsewhere classified
CPT/HCPCS: 99204

== ENCOUNTER 2025-04-11 14:23 | Outpatient (AMB) | payer OTHER, MEDICAID, SELFPAY ==
--- NOTE | 2025-04-11 14:26 | HO.SPINEOV ---
Intake Visit Reasons: CT f/u with in office Intake Note: Ms. Bey is here today to F/u on the results to her CT. Etcher Apprentice Required: No Allergies Unable to Assess Allergy (Verified 04/10/25 11:25) Assessment & Plan Assessment & Plan (1) Low back pain radiating to right leg: Code(s): M54.50 - Low back pain, unspecified; M79.604 - Pain in right leg Category: Medical Plan Dr Simpson and I met with Mrs Bey again today about her spondylolisthesis L4-5 with back pain and severe right leg pain. Our previous consultation we obtain standing x-rays in addition to her MRI done here at [facility] and this showed anterior translation of L4 and L5 suggesting instability at that segment and we offered her transforaminal lumbar interbody fusion to treat the instability. We did want a noncontrast CT of the lumbar spine at [facility] to evaluate her bone integrity because of her history of smoking and she is a postmenopausal. It does show that she has thinning bones, but there appears to be enough integrity that Dr. Simpson thinks we can get adequate purchase with the screws. We have tentatively booked her for a right L4-5 transforaminal lumbar interbody fusion on June 17. She told us that she was following up with pain management and Dr. Johnson who was going to do a right SI joint injection. We told her that if she wants to do the injection that is fine, it is far enough away from our surgery that it should not affect things. Total amount of time spent in this visit was 20 minutes in discussion of symptoms, MRI, CT and x-ray imaging results and subsequent plan of care José Miguel Simpson MD,PhD [facility] Coding Level of Care Code Est Pt Level 3 (85342) Diagnoses Low back pain radiating to right leg M54.50; M79.604
--- OUTSIDE RECORDS SUMMARY | 2025-04-11 14:59 | XMS_ITS | Encounter Summary ---
Author Organization [employer] Address [address] [facility] 7t [place] [address] Care Team Providers Care Respiratory Clinician Name Role Phone Sheridan Wilson PA-C Primary Care Provider [phone] Encounter Details Date Type Department Care Team (Late st Contact Info) Description 04/02/2025 Orders Only [facility] [address] [phone] Sheridan Wilson PA-C [address] [place] [address] Social History Tobacco Use Types Packs/Day Years [...] Description 04/18/2025 10:00 AM EST Office Visit [facility] 8 [place] [phone] Sheridan Wilson PA-C 8 [place] [address] documented as of this encounter Procedures Procedure Name Priority Date/Time Associated Diagnosis Comments DRUG TOX MONITORING 1, W/CONF, ORAL FLUID Routine 04/02/2025 9:40 AM EDT documented in this encounter Results * (ABNORMAL) Drug Toxicology Monitoring 1, with Confirmation, Oral Fluid (04/02/2025 9:40 AM EDT) Amphetamines NEGATIVE <10 ng/mL [facility] Barbiturates NEGATIVE <10 ng/mL [facility] Benzodiazepines NEGATIVE <0.50 ng/mL [facility] Buprenorphine, Oral Fluid NEGATIVE <0.10 ng/mL [facility] Cocaine, oral fluid NEGATIVE <5.0 ng/mL [facility] Fentanyl NEGATIVE <0.10 ng/mL [facility] Heroin Metabolite NEGATIVE <1.0 ng/mL [facility] Marijuana, oral fluid POSITIVE(A) <2.5 ng/mL [facility] THC 5.1(H) <2.5 ng/mL [facility] MDMA Screen, Oral Fluid NEGATIVE <10 ng/mL [facility] Meprobamate NEGATIVE <2.5 ng/mL [facility] Methadone, Oral Fluid NEGATIVE <5.0 ng/mL [facility] Nicotine Metabolite POSITIVE(A) <5.0 ng/mL [facility] Cotinine 59.6(H) <5.0 ng/mL [facility] Comment: Cotinine is a metabolite of nicotine. Opiates, oral fluid POSITIVE(A) <2.5 ng/mL [facility] Codeine, Oral Fluid Negative <2.5 ng/mL [facility] Dihydrocodeine Negative <2.5 ng/mL [facility] Hydrocodone Negative <2.5 ng/mL [facility] Hydromorphone, Oral Fluid Negative <2.5 ng/mL [facility] Morphine Negative <2.5 ng/mL [facility] Norhydrocodone Negative <2.5 ng/mL [facility] Noroxycodone 6.0(H) <2.5 ng/mL [facility] Comment: Noroxycodone is a metabolite of oxycodone. Oxycodone 10.0(H) <2.5 ng/mL [facility] Oxymorphone Negative <2.5 ng/mL [facility] Phencyclidine, oral fluid NEGATIVE <10 ng/mL [facility] Tapentadol NEGATIVE <5.0 ng/mL [facility] Tramadol, Oral Fluid NEGATIVE <5.0 ng/mL [facility] Zolpidem NEGATIVE <5.0 ng/mL [facility] Comment: For additional information, please refer to http://education.Zecter/faq/FCW061 (This link is being provided for informational/ educational purposes only.) This drug testing is for medical treatment only. Analysis was performed as non-forensic testing and these results should be used only by healthcare providers to render diagnosis or treatment, or to monitor progress of medical conditions. For assistance with interpreting these drug results, please contact a [facility] Toxicology Specialist: [phone] ( ), M-F, 8am-6pm EST. These tests were developed and their analytical performance characteristics have been determined by [facility]. They have not been cleared or approved by the FDA. These assays have been validated pursuant to the CLIA regulations and are used for clinical purposes. 04/02/2025 9:40 AM EDT 04/02/2025 9:40 AM EDT Sheridan Wilson PA-C LAB BODY FLUIDS AND STOOLS OR DERABLES Final Result Performing Organization Address City/State/[facility] Co de Phone Number [facility] [address], [place] [address] [facility] [address] [place] [address] documented in this encounter Visit Diagnoses Not on filedocumented in this encounter Additional Health Concerns Assessment Noted Time PHQ-9 Depression Total Score: 6 09/21/19 25 2:24 PM EDT documented as of this encounter Care Teams Respiratory Clinician Relationship Specialty Start Date End Date Sheridan iWlson PA-C [address] [place] [address] PCP - General Family Medicine 09/03/24 documented as of this encounter
--- OUTSIDE RECORDS SUMMARY | 2025-04-11 15:00 | XMS_ITS | Encounter Summary ---
Author Organization [employer] Address [address] [facility] 7t [place] [address] Care Team Providers Care Molecular Biology Scientist Name Role Phone Sheridan Wilson PA-C Primary Care Provider [phone] Encounter Details Date Type Department Care Team (Late st Contact Info) Description 12/12/2024 Orders Only [place] [facility] 119 [place], [place] [phone] Provider, Not In System Social History Tobacco [...] the past 12 months, has t he [email or web address], gas, oil or water [employer] threatened to shut off services in your [...] Description 04/18/2025 10:00 AM EST Office Visit [address] [address] Sheridan Wilson PA-C 8 [place] [address] documented as of this encounter Procedures Procedure [...] documented as of this encounter Care Teams Molecular Biology Scientist Relationship Specialty Start Date End Date Sheridan Wilson PA-C [address] [place] [address] PCP - General Family Medicine 09/03/24 documented as of this encounter
--- OUTSIDE RECORDS SUMMARY | 2025-04-11 15:00 | XMS_ITS | Encounter Summary ---
Author Organization [employer] Address [address] [facility] 7t [place] [address] Care Team Providers Care Funeral Pre Arrangement Specialist Name Role Phone Sheridan Wilson PA-C Primary Care Provider [phone] Encounter Details Date Type Department Care Team (Late st Contact Info) Description 03/06/2025 Orders Only [place] [facility] [address] [place], [place] [phone] Provider, Not In System Social History Tobacco [...] Description 04/18/2025 10:00 AM EST Office Visit [facility] 8 [place] [address] Sheridan Wilson PA-C 8 [place] [address] documented as of this encounter Procedures Procedure [...] documented as of this encounter Care Teams Funeral Pre Arrangement Specialist Relationship Specialty Start Date End Date Sheridan Wilson PA-C [address] [place] [address] PCP - General Family Medicine 09/03/24 documented as of this encounter
--- OUTSIDE RECORDS SUMMARY | 2025-04-11 15:00 | XMS_ITS | Encounter Summary ---
Author Organization [employer] Address [address] [facility] 7t [place] [address] Care Team Providers Care Pattern Attendant Name Role Phone Sheridan Wilson PA-C Primary Care Provider [phone] Encounter Details Date Type Department Care Team (Late st Contact Info) Description 03/20/[address] [address] Sheridan Wilson PA-C [address] [place] [address] Social History Tobacco Use Types Packs/Day [...] the past 12 months, has t he [employer], gas, oil or water [employer] threatened to shut off services in your [...] 10:20 AM Sheridan Wilson PA-C [facility] 04/11/2025 12:40 PM Sheridan Wilson PA-C [facility] Comments: * Telephone Encounter - Gracie Weaver - 03/20/2025 1:25 PM EDT Prescribing Provider: Sheridan Wilson Medication Name: Oxycodone Dosage: 5 mg 5 Days or More Supply: No Pt has an appointment with Sheridan on 03/27. Pharmacy: [facility]/pharmacy #[id number] [place] [address] documented in this encounter Plan of Treatment Upcoming Encounters Date Type Department Care Team (Late st Contact Info) Description 04/18/2025 10:00 AM EST Office Visit [address] [address] Sheridan Wilson PA-C [address] [place] [address] documented as of this encounter Visit Diagnoses Diagnosis Neuroforaminal stenosis of lumbar spine documented in this encounter Additional Health Concerns Assessment Noted Time PHQ-9 Depression Total Score: 6 09/21/19 25 2:24 PM EDT documented as of this encounter Care Teams Pattern Attendant Relationship Specialty Start Date End Date Sheridan Wilson PA-C 8 [place] [address] PCP - General Family Medicine 09/03/24 documented as of this encounter
--- OUTSIDE RECORDS SUMMARY | 2025-04-11 15:00 | XMS_ITS | Clinical Summary ---
Author Organization [employer] Address [address] [facility] 7t [place] [address] Care Team Providers Care Behavioral Pediatrician Name Role Phone Sheridan Wilson PA-C Primary Care Provider [phone] Allergies No known active allergies Medications Multiple [...] to 10 days. 30 tablet 2024 Active meclizine (Antivert) 25 MG [...] for up to 9 days. 15 tablet 2024 Discontinued(R eorder (will not trigger notification to Pharmacy)) oxyCODONE (Roxicodone) 5 MG immediate release tabletIndications: Spinal stenosis of cervicothoracic region,Neuroforami nal stenosis of lumbar spine Take 1 tablet (5 mg) by mouth every 6 (six) hours if needed for severe pain for up to 3 days. 12 tablet 025 2024 Hospital, Clinic, or Other Facility Administered Medication [...] Encounters Date Type Department Care Team Description 04/11/[address] [phone] Sheridan Wilson PA-C [address] [facility] Information Management [address] [place] [address] Provider, Not In System 04/07/2025 Refill [facility] [address] [facility] [address] [place] [address] Sheridan Wilson PA-C Spinal stenosis of cervicothoracic region; Neuroforaminal stenosis of lumbar spine 04/02/2025 8:20 AM EDT Office Visit [address] [phone] Sheridan Wilson PA-C Encounter for pain management (Primary Dx); Encounter for long-term (current) use of medications; Spinal stenosis of cervicothoracic region; Neuroforaminal stenosis of lumbar spine 04/02/[address] [facility] [address] [place] [address] [address] Sheridan Wilson PA-C 03/27/2025 10:20 AM EDT Office Visit [address] [address] Sheridan Wilson PA-C Trigger ring finger of left hand (Primary Dx); Spinal stenosis of cervicothoracic region; Neuroforaminal stenosis of lumbar spine; Hand swelling 03/27/[address] [address] Sheridan Wilson PA-C 03/20/[address] [address] Sheridan Wilson PA-C 03/12/2025 3:40 PM EDT Office Visit [address] [address] Sheridan Wilson PA-C Polyarthralgia (Primary Dx); Encounter for immunization; Elevated antinuclear antibody (JUDI) level; Shortness of breath; Neuroforaminal stenosis of lumbar spine 03/12/[address] [address] Sheridan Wilson PA-C 03/12/[address] [facility] [address] [place] [address] [address] Sheridan Wilson PA-C 03/06/[address] [facility] Information Management [address] [place] [address] Provider, Not In System 03/05/[address] [address] Sheridan Wilson PA-C 01/14/[address] [address] Sheridan Wilson PA-C from Last 3 Months [...] Description 04/18/2025 10:00 AM EST Office Visit [facility] 8 [place] [phone] Sheridan Wilson PA-C [address] [place] [address] Health Maintenance Due Date Last Done Comments CT Colonography 1957 FIT DNA/Cologuard 1957 FIT 1957 FOBT 1957 Sigmoidoscopy 1957 Hepatitis C Screening 1975 DTaP/Tdap/Td Vaccines (1 - Tdap) 01/18/2018 01/17/2018 Depression Screening 09/20/2025 09/20/2024, 09/21/19 25 SDOH Screening 09/20/2025 09/20/2024 Mammogram 11/15/2025 11/15/2024 [...] EDT) Amphetamines NEGATIVE <10 ng/mL [facility] [place] Barbiturates NEGATIVE <10 ng/mL [facility] [place] Benzodiazepines NEGATIVE <0.50 ng/mL [facility] [place] Buprenorphine, Oral Fluid NEGATIVE <0.10 ng/mL [facility] Cocaine, oral fluid NEGATIVE <5.0 ng/mL [facility] [place] Fentanyl NEGATIVE <0.10 ng/mL [facility] Heroin Metabolite NEGATIVE <1.0 ng/mL [facility] Marijuana, oral fluid POSITIVE(A) <2.5 ng/mL [facility] THC 5.1(H) <2.5 ng/mL [facility] MDMA Screen, Oral Fluid NEGATIVE <10 ng/mL [facility] Meprobamate NEGATIVE <2.5 ng/mL [facility] Methadone, Oral Fluid NEGATIVE <5.0 ng/mL [facility] Nicotine Metabolite POSITIVE(A) <5.0 ng/mL [facility] Cotinine 59.6(H) <5.0 ng/mL [facility] Comment: Cotinine is a metabolite of nicotine. Opiates, oral fluid POSITIVE(A) <2.5 ng/mL [facility] Codeine, Oral Fluid Negative <2.5 ng/mL [facility] Dihydrocodeine Negative <2.5 ng/mL [facility] Hydrocodone Negative <2.5 ng/mL [facility] Hydromorphone, Oral Fluid Negative <2.5 ng/mL [facility] Morphine Negative <2.5 ng/mL [facility] Norhydrocodone Negative <2.5 ng/mL [facility] Noroxycodone 6.0(H) <2.5 ng/mL [facility] Comment: Noroxycodone is a metabolite of oxycodone. Oxycodone 10.0(H) <2.5 ng/mL [facility] Oxymorphone Negative <2.5 ng/mL [facility] Phencyclidine, oral fluid NEGATIVE <10 ng/mL [facility] Tapentadol NEGATIVE <5.0 ng/mL [facility] Tramadol, Oral Fluid NEGATIVE <5.0 ng/mL [facility] Zolpidem NEGATIVE <5.0 ng/mL [facility] Comment: For additional information, please refer to http://education.NeuroPace/faq/OKR891 (This link is being provided for informational/ educational purposes only.) This drug testing is for medical treatment only. Analysis was performed as non-forensic testing and these results should be used only by healthcare providers to render diagnosis or treatment, or to monitor progress of medical conditions. For assistance with interpreting these drug results, please contact a [facility] Toxicology Specialist: [phone] ( ), M-F, 8am-6pm EST. These tests were developed and their analytical performance characteristics have been determined by [facility]. They have not been cleared or approved by the FDA. These assays have been validated pursuant to the CLIA regulations and are used for clinical purposes. 04/02/2025 9:40 AM EDT 04/02/2025 9:40 AM EDT us Sheridan Wilson PA-C LAB BODY FLUIDS AND STOOLS OR DERABLES Final Result [facility] [address], [place] [address] [facility] [address] [facility] [address] * XR Spine Lumbar 1 View Only [...] Final * Referral to Orthopaedics (01/22/2025) us Sherdian Wilson PA-C OUTPATIENT REFERRAL ORDERABLE S Final Result * Hm Mammography (11/15/2024 11:04 AM EDT) Anatomical Region Laterality Modality Other us Not In System Provider HEALTH MAINTENANCE Edited Result - Final * (ABNORMAL) Lipid Panel with Reflex to Direct LDL (10/30/2024 11:09 AM EDT) Cholesterol, Total 246(H) <200 mg/dL [facility] HDL Cholesterol 64 > OR = 50 mg/dL [facility] Triglycerides 140 <150 mg/dL [facility] LDL Cholesterol 156(H) mg/dL [facility] Comment: Reference range: <100 Desirable range <100 mg/dL for primary prevention; <70 mg/dL for patients with CHD or diabetic patients with > or = 2 CHD risk factors. LDL-C is now calculated using the Paul-Perri calculation, which is a validated novel method providing better accuracy than the Friedewald equation in the estimation of LDL-C. Paul SS et al. MYRIAM. 2013;310(19): 7593-6382 (http://education.NeuroPace/faq/PCG150) Chol/HDLC Ratio 3.8 <5.0 (calc) [facility] Non-HDL Cholesterol 182(H) <130 mg/dL [facility] Comment: For patients with diabetes plus 1 major ASCVD risk factor, treating to a non-HDL-C goal of <100 mg/dL (LDL-C of <70 mg/dL) is considered a therapeutic option. Blood 10/30/2024 11:0 9 AM EDT 10/30/2024 11:10 AM EDT Narrative [facility] - 10/31/2024 5:11 AM EDT SPLIT 10/23/2024 FROM [id number] us Sheridan Wilson PA-C LAB BLOOD ORDERABLES Final Re sult [facility] 200 [facility], [facility], [place] [address] [facility] [address] [place] [address] * Hm Colonoscopy (03/10/2023 11:50 AM EDT) us Not In System Provider HEALTH MAINTENANCE Edited Result - Final from Last 3 Months or Most Recently Relevant to Health Maintenance Insurance [facility] MEDICARE ADVANTAGE [facility] PARTIAL Care Teams Behavioral Pediatrician Relationship Specialty Start Date End Date Sheridan Wilson PA-C [address] [place] [address] PCP - General Family Medicine 09/03/24
--- OUTSIDE RECORDS SUMMARY | 2025-04-11 15:00 | XMS_ITS | Encounter Summary ---
Author Organization [email or web address] Address [address] [facility] 7t [place] [address] Care Team Providers Care Solution Engineer Name Role Phone Sheridan Wilson PA-C Primary Care Provider [phone] Encounter Details Date Type Department Care Team (Late st Contact Info) Description 04/07/2025 Refill [facility] [address] [phone] Sheridan Wilson PA-C [address] [place] [address] Spinal stenosis of cervicothoracic region; Neuroforaminal stenosis [...] Center 04/18/2025 10:00 AM Sheridan Wilson PA-C [facility] Comments: * Telephone Encounter - Erika Odonnell - 04/07/2025 11:32 AM EDT Prescribing Provider: Medication Name:oxyCODONE (Roxicodone) Dosage: 5 mg 5 Days or More Supply: No [phone] Pharmacy: [facility]/pharmacy #[id number] [place] [address] documented in this encounter Plan of Treatment Upcoming Encounters Date Type Department Care Team (Late st Contact Info) Description 04/18/2025 10:00 AM EST Office Visit [address] [phone] Sheridan Wilson PA-C [address] [place] [address] documented as of this encounter Visit Diagnoses Diagnosis Spinal stenosis of cervicothoracic region Neuroforaminal stenosis of lumbar spine documented in this encounter Additional Health Concerns Assessment Noted Time PHQ-9 Depression Total Score: 6 09/21/19 25 2:24 PM EDT documented as of this encounter Care Teams Solution Engineer Relationship Specialty Start Date End Date Sheridan Wilson PA-C 8 [place] [address] PCP - General Family Medicine 09/03/24 documented as of this encounter
--- OUTSIDE RECORDS SUMMARY | 2025-04-11 15:00 | XMS_ITS | Encounter Summary ---
Author Organization [facility] Address [address] [facility] 7t [place] [address] Care Team Providers Care Electronics Department Manager Name Role Phone Sheridan Wilson PA-C Primary Care Provider [phone] Encounter Details Date Type Department Care Team (Late st Contact Info) Description 2025 Orders Only [facility] [address] [place], [place] [id number] Provider, Not In System Social History Tobacco [...] Description 04/18/2025 10:00 AM EST Office Visit [facility] 8 [place] [address] Sheridan Wilson PA-C 8 [place] [address] documented as of this encounter Procedures Procedure [...] documented as of this encounter Care Teams Electronics Department Manager Relationship Specialty Start Date End Date Sheridan Wilson PA-C [address] [place] [address] PCP - General Family Medicine 09/03/24 documented as of this encounter
--- OUTSIDE RECORDS SUMMARY | 2025-04-11 15:00 | XMS_ITS | Clinical Summary ---
Author Organization [facility] Address [address] [facility] [address] [place] [address] Phone Care Team Providers Care Research Technician Name Role Phone Sheridan Wilson Primary Care Provider [phone] Encounters Date Type Department Care Team Description 2025 Transcribe Orders [facility] Rhe[facility]ology - Virtual Department [address] [place] [address] Sheridan Wilson PA Raynaud's disease without gangrene (Primary Dx) 03/27/2025 Transcribe Orders [facility] [address] [place] [address] Sheridan Wilson PA Encounter for rehabilitation (Primary Dx) 03/18/2025 Transcribe Orders Virtual Department [address] [place] [address] Sheridan Wilson PA SOB (shortness of breath) [...] Description 04/15/2025 10:00 AM EST Office Visit [facility] 8 [place] [address] Sheridan Wilson PA 8 [place] [address] Erin Mcdonnell, OT [address] [place] [address] [email or web address] 04/22/2025 10:00 AM EST Office Visit [facility] 8 [place] [address] Sheridan Wilson PA 8 [place] [address] Erin Mcdonnell, OT [address] [place] [address] [email or web address] 04/24/2025 10:00 AM EST Office Visit [address] [address] Sheridan Wilson PA 8 [place] [address] Erin Mcdonnell, OT [address] [place] [address] [email or web address] 04/29/2025 10:00 AM EST Office Visit [address] [address] Sheridan Wilson PA 8 [place] [address] Erin Mcdonnell, OT [address] [place] [address] [email or web address] 05/14/2025 3:00 PM EST Appointment [facility] 30 [place] [address] Sheridan Wilson PA 8 [place] [address] 08/07/2025 2:15 PM EST Appointment [facility], Bone Density - [facility] 30 [place] [address] Sheridan Wilson PA [address] [place] [address] Health Maintenance Due Date Last Done Comments [...] REPLACEMENT MEDICARE REPLACEMENT MEDICARE REPLACEMENT Care Teams Research Technician Relationship Specialty Start Date End Date Sheridan Wilsno PA [address] [place] [address] PCP - General Physician Gas Or Petroleum Operator 04/02/25 Additional Source Comments The information contained in this document represents components of the legal health record. It is not the complete legal health record.[facility]
--- OUTSIDE RECORDS SUMMARY | 2025-04-11 15:00 | XMS_ITS | Encounter Summary ---
Author Organization [facility] Address [address] [facility] [address] [place], [place] [phone] Phone Care Team Providers Care Surgical Instrument Maker Name Role Phone Sheridan Wilson Primary Care Provider Reason for Referral * Consultation (Within 1 month) - New Request Specialty Diagnoses / Procedures Referred By Contcait t Referred To Contact Rheumatology Diagnoses Raynaud's disease without gangrene Sheridan Wilson PA [address] [place] [address] Phone: tel: fax: [facility] [address] [place] [address] Phone: tel: Referral ID Status Reason Start Date Expiration Date V isits Requested Visits Authorized [id number] New Request 2025 2026 1 1 Encounter Details Date Type Department Care Team (Latest Contact Info) Description 2025 Transcribe Orders [facility]ology - Virtual Department [address] [place] [address] Sheridan Wilson PA [address] [place] [address] Raynaud's disease without gangrene (Primary Dx) Social [...] Description 04/15/2025 10:00 AM EST Office Visit [facility] 8 [place] [address] Sheridan Wilson PA 8 [place] [address] Erin Mcdonnell, OT [address] [place] [address] [email or web address] 04/22/2025 10:00 AM EST Office Visit [facility] [address] [place] [address] Sheridan Wilson PA 8 [place] [address] Erin Mcdonnell, OT [address] [place] [address] [email or web address] 04/24/2025 10:00 AM EST Office Visit [address] [place] [address] Sheridan Wilson PA 8 [place] [address] Erin Mcdonnell, OT [address] [place] [address] [email or web address] 04/29/2025 10:00 AM EST Office Visit [facility] [address] [place] [address] Sheridan Wilson PA 8 [place] [address] Erin Mcdonnell, OT [address] [place] [address] [email or web address] 05/14/2025 3:00 PM EST Appointment [facility] [address] [place] [address] Sheridan Wilson PA 8 [place], [place] [phone] 08/07/2025 2:15 PM EST Appointment [facility], [facility] - [facility] [address] [place] [address] Sheridan Wilson PA 8 [place], [place] [phone] Scheduled Referrals Name Type Priority Associated Diagnoses Order Schedule Ambulatory referral to [facility] Rheumatology Outpatient Referral Routine Raynaud's disease without gangrene Ordered: 2025 documented as of this encounter Visit Diagnoses Diagnosis Raynaud's disease without gangrene- Primary documented in this encounter Care Teams Surgical Instrument Maker Relationship Specialty Start Date End Date Sheridan Wilson PA [address] [place] [address] PCP - General Physician Communications Instructor 04/02/25 documented as of this encounter Additional Source Comments The information contained in this document represents components of the legal health record. It is not the complete legal health record.[facility]
--- OUTSIDE RECORDS SUMMARY | 2025-04-11 15:00 | XMS_ITS | Encounter Summary ---
Author Organization [employer] Address [address] [facility] 7 [place] [address] Care Team Providers Care Director Style Name Role Phone Sheridan Wilson PA-C Primary Care Provider [phone] Encounter Details Date Type Department Care Team ([facility] st Contact Info) Description 01/14/2025 Telephone [facility] [address] [place] [address] Sheridan Wilson PA-C [address] [place] [address] Social History Tobacco Use Types Packs/Day [...] the past 12 months, has t he [employer], gas, oil or water [employer] threatened to shut off services in your [...] 10:12 AM EDT Verified Insurance: Yes Referral Office:[facility] General Surgery Diagnosis Code:K57.20 Number of Visits Needed:12 NPI# of Facility: NPI# of Provider being referred to:[id number] Phone #: [phone] Fax #: [phone] Date of Service : 10/24/24 documented in this encounter Plan of Treatment Upcoming Encounters Date Type Department Care Team (Late st Contact Info) Description 04/18/2025 10:00 AM EST Office Visit [facility] 8 [place] [address] Sheridan Wilson PA-C 8 [place] [address] documented as of this encounter Visit Diagnoses Not on filedocumented in this encounter Additional Health Concerns Assessment Noted Time PHQ-9 Depression Total Score: 6 09/21/19 25 2:24 PM EDT documented as of this encounter Care Teams Director Style Relationship Specialty Start Date End Date Sheridan Wilson PA-C 8 [place] [address] PCP - General Family Medicine 09/03/24 documented as of this encounter
--- OUTSIDE RECORDS SUMMARY | 2025-04-11 15:00 | XMS_ITS | Encounter Summary ---
Author Organization [employer] Address [address] [facility] 7t [place] [address] Care Team Providers Care Sonography Technician Name Role Phone Sheridan Wilson PA-C Primary Care Provider [phone] Encounter Details Date Type Department Care Team (Late st Contact Info) Description 04/11/[address] [phone] Sheridan Wilson PA-C [address] [place] [address] Social History Tobacco Use Types Packs/Day [...] the past 12 months, has t he [employer], gas, oil or water [employer] threatened to shut off services in your [...] encounter Miscellaneous Notes * Telephone Encounter - Dinora Montelongo - 04/11/2025 1:04 PM EDT Pt has come in to Tf site wanting to relay information about her recent meds. Pt states she took the muscle relaxer from last week and it helped her to sleep at night but kept feeling dizzy and out of balance. She said she couldn't tell if it was the muscle relaxer or her vertigo. Pt consulted her rn pain management and he informed her that that relaxer cannot be prescribed with Duloxetine due to it causing major side effects. Pt also came in asking if pcp could order or advise on a different Nicotine alejandra- pt expresses she cannot take Chantix or generic brand. Pt would like a call with information/ feedback at #[phone] documented in this encounter Plan of Treatment Upcoming Encounters Date Type Department Care Team (Late st Contact Info) Description 04/18/2025 10:00 AM EST Office Visit [facility] 8 [place] [address] Sheridan Wilson PA-C 8 [place] [address] documented as of this encounter Visit Diagnoses Not on filedocumented in this encounter Additional Health Concerns Assessment Noted Time PHQ-9 Depression Total Score: 6 09/21/19 25 2:24 PM EDT documented as of this encounter Care Teams Sonography Technician Relationship Specialty Start Date End Date Sheridan Wilson PA-C 8 [place] [address] PCP - General Family Medicine 09/03/24 documented as of this encounter
== END 2025-04-11 15:34 | disposition home or self-care (01) ==
LOC: HO.HNS 14:23
PROVIDERS: PCP Student in an Organized Health Care Education/Training Program; Visit Provider Physician Assistant
DX: M54.50 Low back pain, unspecified (principal); M79.604 Pain in right leg
CPT/HCPCS: 99213

== ENCOUNTER 2025-04-22 06:23 | Outpatient (REF) | payer OTHER, MEDICAID, SELFPAY ==
--- OUTSIDE RECORDS SUMMARY | 2025-04-18 10:00 | XMS_ITS | Encounter Summary ---
Author Organization [employer] Address 75 [facility] 7t [place] [address] Care Team Providers Care Pooling Operator Name Role Phone Sheridan Wilson PA-C Primary Care Provider [phone] Reason for Visit * Reason Comments Follow-up Follow-up. Saw pain management on 05/11. Spinal injection set up for 04/22. Pt would like to discuss smoking cessation. Saw spine surgeon on . Pt is going to need back surgery. Scheduled for 06/17/2024. Encounter Details Date Type Department Care Team (Late st Contact Info) Description 04/18/2025 10:00 AM EST Office Visit [address] [phone] Sheridan Wilson PA-C [address] [place] [address] [phone] Encounter for smoking cessation counseling (Primary Dx); [...] Center 05/02/2025 10:00 AM Sheridan Wilson PA-C [facility] This visit documentation was prepared using voice-enabled artificial intelligence software ([employer] notes). documented in this encounter Miscellaneous Notes [...] Description 05/02/2025 10:00 AM EST Office Visit [address] [phone] Sheridan Wilson PA-C 8 [place] [address] documented as of this encounter Visit Diagnoses Diagnosis Encounter for smoking cessation counseling- Primary Raynaud's disease without gangrene Neuroforaminal stenosis of lumbar spine documented in this encounter Additional Health Concerns Assessment Noted Time PHQ-9 Depression Total Score: 6 09/21/19 25 2:24 PM EDT documented as of this encounter Care Teams Pooling Operator Relationship Specialty Start Date End Date Sheridan Wilson PA-C 8 [place] [address] PCP - General Family Medicine 09/03/24 documented as of this encounter
--- NOTE | ~2025-04-22 | FL_ITS ---
EXAMINATION: FLUOROSCOPY GUIDANCE FOR NEEDLE PLACEMENT CLINICAL INFORMATION: M53.3 - Sacrococcygeal disorders, not elsewhere classified COMPARISON: Lumbar spine x-ray February [address] March 2025 TECHNIQUE: Fluoroscopic guidance provided for pain management procedure. FINDINGS: Images demonstrate needle placement and contrast injection over the right sacroiliac joint. FLUOROSCOPY TIME: 13 seconds DOSE AREA PRODUCT: 82 mg/sq cm. 2 submitted images. FL/FL guidance in treatment room IMPRESSION: Fluoroscopy guidance for pain management procedure. Electronically signed by: Diamante Joshua MD 04/22/2025 02:31 PM [facility]
--- OUTSIDE RECORDS SUMMARY | 2025-04-22 06:25 | XMS_ITS | Encounter Summary ---
Author Organization [employer] Address [address] [facility] 7t [place] [address] Care Team Providers Care District Recruiter Name Role Phone Sheridan Wilson PA-C Primary Care Provider [phone] Encounter Details Date Type Department Care Team (Late st Contact Info) Description 12/12/2024 Orders Only [facility] [address] [place], [place] [phone] Provider, Not In System Social History Tobacco [...] the past 12 months, has t he [employer], gas, oil or water [employer] threatened to shut off services in your [...] Description 05/02/2025 10:00 AM EST Office Visit [address] [phone] Sheridan Wilson PA-C 8 [place] [address] documented as of this encounter Procedures Procedure [...] documented as of this encounter Care Teams District Recruiter Relationship Specialty Start Date End Date Sheridan Wilson PA-C [address] [place] [address] PCP - General Family Medicine 09/03/24 documented as of this encounter
--- OUTSIDE RECORDS SUMMARY | 2025-04-22 06:25 | XMS_ITS | Clinical Summary ---
Author Organization [facility] Address [address] [facility] [place] [address] Phone Care Team Providers Care Ship Purser Name Role Phone Sheridan Wilson Primary Care Provider [phone] Encounters Date Type Department Care Team Description 2025 Transcribe Orders [facility] - Virtual Department [address] [place] [address] Sheridan Wilson PA Raynaud's disease without gangrene (Primary Dx) 03/27/2025 Transcribe Orders [facility] [address] [place] [address] Sheridna Wilson PA Encounter for rehabilitation (Primary Dx) 03/18/2025 Transcribe Orders Virtual Department [address] [place] [address] Sheridan Wilson PA SOB (shortness of breath) [...] Care Team (Late st Contact Info) Description 04/22/2025 10:00 AM EST Office Visit [facility] [address] [place] [address] Sheridan Wilson PA 8 [place] [address] Erin Mcdonnell, OT [address] [place] [address] [email or web address] 04/24/2025 10:00 AM EST Office Visit [facility] 8 [place] [address] Sheridan Wilson PA 8 [place] [address] Erin Mcdonnell, OT [address] [place] [address] [email or web address] 04/29/2025 10:00 AM EST Office Visit [address] [address] Sheridan Wilson PA 8 [place] [address] Erin Mcdonnell, OT [address] [place] [address] [email or web address] 05/14/2025 3:00 PM EST Appointment [facility] [address] [place] [address] Sheridan Wilson PA 8 [place] [address] 08/07/2025 2:15 PM EST Appointment [facility], Bone Density - [address] [address] Sheridan Wilson PA 8 [place] [address] Health Maintenance Due Date Last Done Comments [...] patient's age to complete this topic IPV VACCINES Aged Out No longer eligi ble based on patient's age to complete this topic MENINGOCOCCAL VACCINES (ACWY) Aged Out No longer eligible based on patient's age to complete this topic MENINGOCOCCAL VACCINES (B) Aged Out N o longer eligible based on patient's age to complete this topic Medical Devices Not on file Insurance MEDICARE REPLACEMENT MEDICARE REPLACEMENT MEDICARE REPLACEMENT MEDICARE REPLACEMENT P MEDICARE REPLACEMENT MEDICARE REPLACEMENT Care Teams Ship Purser Relationship Specialty Start Date End Date Sheridan Wilson PA [address] [place] [address] PCP - General Physician Drier Feeder 04/02/25 Additional Source Comments The information contained in this document represents components of the legal health record. It is not the complete legal health record.[facility]
--- OUTSIDE RECORDS SUMMARY | 2025-04-22 06:25 | XMS_ITS | Clinical Summary ---
Author Organization [email or web address] Address [address] [facility] 7t [place] [address] Care Team Providers Care Order Taker Name Role Phone Sheridan Wilson PA-C Primary Care Provider [phone] Allergies No known active allergies Medications Multiple [...] bedtime. 30 tablet 11 025 2025 Active lidocaine (Lidoderm) 5 % patchIndications:S tutu stenosis of cervicothoracic region,Neuroforami nal stenosis of lumbar spine Apply 1 patch topically Once per day. Remove & discard patch within 12 hours or as directed by MD. 30 patch 1 025 Active DULoxetine (Cymbalta) [address] capsuleIndications :Anxiety,Spinal stenosis of lumbar region, unspecified whether neurogenic claudication present Take 1 capsule (60 mg) by mouth Once per day. Do not crush or chew. 90 capsule 025 2025 Active sildenafil (Revatio) 20 MG tabletIndications: Raynaud's disease without gangrene Take 1 tablet (20 mg) by mouth 2 times daily. 180 tablet 1 11/07/2 025 Active Varenicline Tartrate, Starter, 0.5 MG X 11 & 1 MG X 42 tablet therapy packIndications:En counter for smoking cessation counseling Take 0.5 mg by mouth Once per day for 3 days, THEN 0.5 mg 2 times daily for 4 days, THEN 1 mg 2 times daily for 21 days. 1 each 2024 Active meclizine (Antivert) 25 MG tabletIndications: [...] to assess response 90 capsule 2024 Discontinued sildenafil (Revatio) 20 MG tabletIndications: Raynaud's disease without gangrene TAKE 1 TABLET BY MOUTH TWICE A DAY 180 tablet 1 2024 Discontinued(R eorder (will not trigger notification to Pharmacy)) DULoxetine (Cymbalta) [address] capsuleIndications :Anxiety,Spinal stenosis of lumbar region, unspecified whether neurogenic claudication present TAKE 1 CAPSULE (60 MG) BY MOUTH ONCE PER DAY. DO NOT CRUSH OR CHEW. 90 capsule 2024 Discontinued(R eorder (will not trigger notification to Pharmacy)) oxyCODONE (Roxicodone) 5 MG immediate release tabletIndications: Spinal stenosis of cervicothoracic region,Neuroforami nal stenosis of lumbar spine Take 1 tablet (5 mg) by mouth every 6 (six) hours if needed for severe pain for up to 5 days. 15 tablet 025 2024 Discontinued(R eorder (will not trigger notification to Pharmacy)) oxyCODONE (Roxicodone) 5 MG immediate release tabletIndications: Spinal stenosis of cervicothoracic region,Neuroforami nal stenosis of lumbar spine Take 1 tablet (5 mg) by mouth every 6 (six) hours if needed for severe pain for up to 9 days. 15 tablet 2024 Discontinued(R eorder (will not trigger notification to Pharmacy)) cyclobenzaprine (Flexeril) 5 MG tabletIndications: Spinal stenosis of cervicothoracic region,Neuroforami nal stenosis of lumbar spine Take 1.5 tablets (7.5 mg) by mouth if needed in the morning, at noon, and at bedtime for muscle spasms (muscle spasm) for up to 10 days. 30 tablet 2024 oxyCODONE (Roxicodone) 5 MG immediate release tabletIndications: Spinal stenosis of cervicothoracic region,Neuroforami nal stenosis of lumbar spine Take 1 tablet (5 mg) by mouth every 6 (six) hours if needed for severe pain for up to 3 days. 12 tablet 2024 Hospital, Clinic, or Other Facility Administered Medication Ordered Dose Route Frequency Start Date End Date Status ketorolac (Toradol) injection 30 mgIndications:Neuroforamina l stenosis of lumbar spine 30 mg IM Once 03/27/2025 Ended Active Problems Problem Noted Date Diagnosed Date Neuroforaminal stenosis of lumbar spine 04/18/20 25 Assessment & Plan (04/18/2025 11:32 AM EST): - Joint injections 04/18. - Surgery scheduled early June. Vertigo 09/20/2024 Anxiety 09/20/2024 Raynaud's disease without gangrene 09/20/2024 Assessment & Plan (04/18/2025 11:32 AM EST): - Stable. Pending Rheum evaluation. Refill sent. Orders: sildenafil (Revatio) 20 MG tablet; Take 1 tablet (20 mg) by mouth 2 times daily. Assessment & Plan (12/25/2024 3:27 PM EDT): [...] Encounters Date Type Department Care Team Description 04/18/2025 10:00 AM EST Office Visit [address] [address] Sheridan Wilson PA-C Encounter for smoking cessation counseling (Primary Dx); Raynaud's disease without gangrene; Neuroforaminal stenosis of lumbar spine 04/11/[address] [address] Sheridan Wilson PA-C Anxiety; Spinal stenosis of lumbar region, unspecified whether neurogenic claudication present 2025 Orders Only [facility] Information Management [address] [place] [address] Provider, Not In System 04/07/[address] [address] Sheridan Wilson PA-C Spinal stenosis of cervicothoracic region; Neuroforaminal stenosis of lumbar spine 04/02/2025 8:20 AM EDT Office Visit [address] [address] Sheridan Wilson PA-C Encounter for pain management (Primary Dx); Encounter for long-term (current) use of medications; Spinal stenosis of cervicothoracic region; Neuroforaminal stenosis of lumbar spine 04/02/2025 Orders Only [facility] [address] [address] Sheridan Wilson PA-C 03/27/2025 10:20 AM EDT Office Visit [address] [phone] Sheridan Wilson PA-C Trigger ring finger of left hand (Primary Dx); Spinal stenosis of cervicothoracic region; Neuroforaminal stenosis of lumbar spine; Hand swelling 03/27/[address] [address] Sheridan Wilson PA-C 03/20/[address] [address] Sheridan Wilson PA-C 03/12/2025 3:40 PM EDT Office Visit [address] [address] Sheridan Wilson PA-C Polyarthralgia (Primary Dx); Encounter for immunization; Elevated antinuclear antibody (JUDI) level; Shortness of breath; Neuroforaminal stenosis of lumbar spine 03/12/[address] [address] Sheridan Wilson PA-C 03/12/2025 Telephone [facility] [address] [facility] [address] [place] [phone] Sheridan Wilson PA-C 03/06/2025 Orders Only [facility] Information Management [address] [place] [address] Provider, Not In System 03/05/[address] [address] Sheridan Wilson PA-C from Last 3 Months [...] Pulse 100 04/18/2025 10:02 AM EST Temperature 36.9 C (98.4 F) 09/20/2024 1:38 PM EDT Respiratory Rate - - Oxygen Saturation 98% 04/18/2025 10:02 AM EST Inhaled Oxygen Concentration - - Weight 65.6 kg (144 lb 9.6 oz) 03/27/2025 10:19 AM EDT Height 156 cm (5' 1.42 ) 09/20/2024 1:38 PM EDT Body Mass Index 26.95 09/20/2024 1:38 PM EDT Plan of Treatment Upcoming Encounters Date Type Department Care Team (Late st Contact Info) Description 05/02/2025 10:00 AM EST Office Visit [address] [phone] Sheridan Wilson PA-C [address] [place] [address] Health Maintenance Due Date Last Done Comments [...] Date/Time Associated Diagnosis Comments AMB REFERRAL TO PAIN MEDICINE Routine 04/11/2025 Neuroforaminal stenosis of lumbar spine CT LUMBAR SPINE WO CONTRAST Routine 04/05/2025 [...] to Health Maintenance Results * Referral to Pain Medicine (04/11/2025) us Sheridan Wilson PA-C OUTPATIENT REFERRAL ORDERABLE S Final Result * CT Lumbar Spine w/o Contrast (04/05/2025 9:23 AM EDT) Anatomical Region Laterality Modality Spine, L-spine Computed Tomogra phy us Not In System Provider IMG CT PROCEDURES Edited Result - Final * (ABNORMAL) Drug Toxicology Monitoring 1, with Confirmation, Oral Fluid (04/02/2025 9:40 AM EDT) Amphetamines NEGATIVE <10 ng/mL [facility] [place] Barbiturates NEGATIVE <10 ng/mL [facility] [place] Benzodiazepines NEGATIVE <0.50 ng/mL [facility] [place] Buprenorphine, Oral Fluid NEGATIVE <0.10 ng/mL [facility] Cocaine, oral fluid NEGATIVE <5.0 ng/mL [facility] Fentanyl NEGATIVE <0.10 ng/mL [facility] Heroin Metabolite NEGATIVE <1.0 ng/mL [facility] Marijuana, oral fluid POSITIVE(A) <2.5 ng/mL [facility] THC 5.1(H) <2.5 ng/mL [facility] MDMA Screen, Oral Fluid NEGATIVE <10 ng/mL [facility] Meprobamate NEGATIVE <2.5 ng/mL [facility] Methadone, Oral Fluid NEGATIVE <5.0 ng/mL [facility] Nicotine Metabolite POSITIVE(A) <5.0 ng/mL [facility] Cotinine 59.6(H) <5.0 ng/mL [facility] Comment: Cotinine is a metabolite of nicotine. Opiates, oral fluid POSITIVE(A) <2.5 ng/mL [facility] Codeine, Oral Fluid Negative <2.5 ng/mL [facility] Dihydrocodeine Negative <2.5 ng/mL [facility] Hydrocodone Negative <2.5 ng/mL [facility] Hydromorphone, Oral Fluid Negative <2.5 ng/mL [facility] Morphine Negative <2.5 ng/mL [facility] Norhydrocodone Negative <2.5 ng/mL [facility] Noroxycodone 6.0(H) <2.5 ng/mL [facility] Comment: Noroxycodone is a metabolite of oxycodone. Oxycodone 10.0(H) <2.5 ng/mL [facility] Oxymorphone Negative <2.5 ng/mL [facility] Phencyclidine, oral fluid NEGATIVE <10 ng/mL [facility] Tapentadol NEGATIVE <5.0 ng/mL [facility] Tramadol, Oral Fluid NEGATIVE <5.0 ng/mL [facility] Zolpidem NEGATIVE <5.0 ng/mL [facility] Comment: For additional information, please refer to http://education.[employer] Systems/faq/HPD706 (This link is being provided for informational/ educational purposes only.) This drug testing is for medical treatment only. Analysis was performed as non-forensic testing and these results should be used only by healthcare providers to render diagnosis or treatment, or to monitor progress of medical conditions. For assistance with interpreting these drug results, please contact a [facility] Toxicology Specialist: [phone] ( ), M-F, 8am-6pm EST. These tests were developed and their analytical performance characteristics have been determined by [facility]. They have not been cleared or approved by the FDA. These assays have been validated pursuant to the CLIA regulations and are used for clinical purposes. 04/02/2025 9:40 AM EDT 04/02/2025 9:40 AM EDT us Sheridan Wilson PA-C LAB BODY FLUIDS AND STOOLS OR DERABLES Final Result [facility] [address], [place] [address] [facility] [address] [place] [address] * XR Spine Lumbar 1 View Only [...] AM EDT) Cholesterol, Total 246(H) <200 mg/dL [facility] [place] Tier 3 HDL Cholesterol 64 > OR = 50 mg/dL [facility] [place] [facility] Triglycerides 140 <150 mg/dL [facility] [place] Tier 3 LDL Cholesterol 156(H) mg/dL [facility] [place] Tier 3 Comment: Reference range: <100 Desirable range <100 mg/dL for primary prevention; <70 mg/dL for patients with CHD or diabetic patients with > or = 2 CHD risk factors. LDL-C is now calculated using the Cinthia calculation, which is a validated novel method providing better accuracy than the Friedewald equation in the estimation of LDL-C. Paul LAU et al. MYRIAM. 2013;310(19): 0021-9004 (http://education.[employer] Systems/faq/HOL206) Chol/HDLC Ratio 3.8 <5.0 (calc) [facility] [place] Tier 3 Non-HDL Cholesterol 182(H) <130 mg/dL [facility] [place] Tier 3 Comment: For patients with diabetes plus 1 major ASCVD risk factor, treating to a non-HDL-C goal of <100 mg/dL (LDL-C of <70 mg/dL) is considered a therapeutic option. Blood 10/30/2024 11:0 9 AM EDT 10/30/2024 11:10 AM EDT Narrative [facility] - 10/31/2024 5:11 AM EDT SPLIT 10/23/2024 FROM [id number] us Sheridan Wilson PA-C LAB BLOOD ORDERABLES Final Re sult [facility] [address], [place] [address] [facility] [place] [facility] [address] [place] [address] * Hm Colonoscopy (03/10/2023 11:50 AM EDT) us Not In System Provider HEALTH MAINTENANCE Edited Result - Final from Last 3 Months or Most Recently Relevant to Health Maintenance Insurance [facility] MEDICARE ADVANTAGE [facility] PARTIAL Care Teams Order Taker Relationship Specialty Start Date End Date Sheridan Wilson PA-C [address] [place] [address] PCP - General Family Medicine 09/03/24
--- OUTSIDE RECORDS SUMMARY | 2025-04-22 06:25 | XMS_ITS | Encounter Summary ---
Author Organization [employer] Address [address] [facility] 7t [place] [address] Care Team Providers Care Implementation Director Name Role Phone Sheridan Wilson PA-C Primary Care Provider [phone] Encounter Details Date Type Department Care Team (Late st Contact Info) Description 03/20/[address] [address] Sheridan Wilson PA-C [address] [place] [address] Social History Tobacco Use Types Packs/Day [...] the past 12 months, has t he [employer], gas, oil or water [employer]ol[employer] threatened to shut off services in your [...] 10:20 AM Sheridan Wilson PA-C [facility] 04/11/2025 12:40 PM Sheridan Wilson PA-C [facility] Comments: * Telephone Encounter - Gracie Weaver - 03/20/2025 1:25 PM EDT Prescribing Provider: Sheridan Wilson Medication Name: Oxycodone Dosage: 5 mg 5 Days or More Supply: No Pt has an appointment with Sheridan on 03/27. Pharmacy: [facility]/pharmacy #[id number] [place] [id number] documented in this encounter Plan of Treatment Upcoming Encounters Date Type Department Care Team (Late st Contact Info) Description 05/02/2025 10:00 AM EST Office Visit [address] [address] Sheridan Wilson PA-C [address] [place] [address] documented as of this encounter Visit Diagnoses Diagnosis Neuroforaminal stenosis of lumbar spine documented in this encounter Additional Health Concerns Assessment Noted Time PHQ-9 Depression Total Score: 6 09/21/19 25 2:24 PM EDT documented as of this encounter Care Teams Implementation Director Relationship Specialty Start Date End Date Sheridan Wilson PA-C [address] [place] [address] PCP - General Family Medicine 09/03/24 documented as of this encounter
--- OUTSIDE RECORDS SUMMARY | 2025-04-22 06:25 | XMS_ITS | Encounter Summary ---
Author Organization [employer] Address [address] [facility] 7 [place] [address] Care Team Providers Care Non Licensed Nuclear Equipment Operator Name Role Phone Sheridan Wilson PA-C Primary Care Provider [phone] Encounter Details Date Type Department Care Team ([facility] st Contact Info) Description 01/14/2025 Telephone [facility] [address] [place] [address] Sheridan Wilson PA-C [address] [place] [address] Social History Tobacco Use Types Packs/Day [...] the past 12 months, has t he [employer], gas, oil or water [employer] threatened to shut off services in your [...] 10:12 AM EDT Verified Insurance: Yes Referral Office:[facility] [place] [facility] Diagnosis Code:K57.20 Number of Visits Needed:12 NPI# of Facility: NPI# of Provider being referred to:[id number] Phone #: [phone] Fax #: [phone] Date of Service : 10/24/24 documented in this encounter Plan of Treatment Upcoming Encounters Date Type Department Care Team (Late st Contact Info) Description 05/02/2025 10:00 AM EST Office Visit [facility] [address] [place] [address] Sheridan iWlson PA-C [address] [place] [address] documented as of this encounter Visit Diagnoses Not on filedocumented in this encounter Additional Health Concerns Assessment Noted Time PHQ-9 Depression Total Score: 6 09/21/19 25 2:24 PM EDT documented as of this encounter Care Teams Non Licensed Nuclear Equipment Operator Relationship Specialty Start Date End Date Sheridan Wilson PA-C [address] [place] [address] PCP - General Family Medicine 09/03/24 documented as of this encounter
--- OUTSIDE RECORDS SUMMARY | 2025-04-22 06:25 | XMS_ITS | Encounter Summary ---
Author Organization [employer] Address 75 [facility] 7t [place] [address] Care Team Providers Care Regional Business Development Manager Name Role Phone Sheridan Wilson PA-C Primary Care Provider [phone] Encounter Details Date Type Department Care Team (Late st Contact Info) Description 03/06/2025 Orders Only [facility] [address] [place], [place] [id number] Provider, Not In System Social History Tobacco [...] Description 05/02/2025 10:00 AM EST Office Visit [facility] [address] [place] [address] Sheridan Wilson PA-C [address] [place] [address] documented as of this encounter Procedures Procedure [...] documented as of this encounter Care Teams Regional Business Development Manager Relationship Specialty Start Date End Date Sheridan Wilson PA-C [address] [place] [address] PCP - General Family Medicine 09/03/24 documented as of this encounter
--- OUTSIDE RECORDS SUMMARY | 2025-04-22 06:25 | XMS_ITS | Encounter Summary ---
Author Organization [employer] Address [address] [facility] 7t [place] [address] Care Team Providers Care Amusement Centre Manager Name Role Phone Sheridan Wilson PA-C Primary Care Provider [phone] Encounter Details Date Type Department Care Team (Late st Contact Info) Description 2025 Orders Only [facility] [address] [place], [place] [phone] Provider, Not In System Social History Tobacco [...] Description 05/02/2025 10:00 AM EST Office Visit [facility] [address] [place] [address] Sheridan Wilson PA-C [address] [place] [address] documented as of this encounter Procedures Procedure [...] documented as of this encounter Care Teams Amusement Centre Manager Relationship Specialty Start Date End Date Sheridan Wilson PA-C [address] [place] [address] PCP - General Family Medicine 09/03/24 documented as of this encounter
== END 2025-04-22 06:24 | disposition home or self-care (01) ==
LOC: CF 06:23
PROVIDERS: Visit Provider Anesthesiology
DX: M53.3 Sacrococcygeal disorders, not elsewhere classified (principal); M46.1 Sacroiliitis, not elsewhere classified
CPT/HCPCS: 27096; J2003; J2795; Q9967

== ENCOUNTER 2025-04-22 13:05 | Outpatient (AMB) | payer OTHER, MEDICAID, SELFPAY ==
--- OUTSIDE RECORDS SUMMARY | 2025-04-18 10:00 | XMS_ITS | Encounter Summary ---
Author Organization [employer] Address [address] [facility] 7t [place] [address] Care Team Providers Care Aerodynamic Consultant Name Role Phone Sheridan Wilson PA-C Primary Care Provider [phone] Reason for Visit * Reason Comments Follow-up Follow-up. Saw pain management on 05/11. Spinal injection set up for 04/22. Pt would like to discuss smoking cessation. Saw spine surgeon on . Pt is going to need back surgery. Scheduled for 06/17/2024. Encounter Details Date Type Department Care Team (Late st Contact Info) Description 04/18/2025 10:00 AM EST Office Visit [address] [phone] Sheridan Wilson PA-C [address] [place] [phone] Encounter for smoking cessation counseling (Primary Dx); Raynaud's disease without gangrene; Neuroforaminal stenosis of lumbar spine Social History [...] PM EDT documented as of this encounter Last Filed Vital Signs Vital Sign Reading Time Taken Comments Blood Pressure 138/84 04/18/2025 10:02 AM EST Pulse 100 04/18/2025 10:02 AM EST Temperature - - Respiratory Rate - - Oxygen Saturation 98% 04/18/2025 10:02 AM EST Inhaled Oxygen Concentration - - Weight - - Height - - Body Mass Index - - documented in this encounter Progress Notes * Sheridan Wilson PA-C - 04/18/2025 10:00 AM EST Chief Complaint Patient presents with Follow-up Follow-up. Saw pain management on 05/11. Spinal injection set up for 04/22. Pt would like to discuss smoking cessation. Saw spine surgeon on . Pt is going to need back surgery. Scheduled for 06/17/2024. History of Present Illness Amy presents for follow up after after recent visits with pain management and spine surgeon. Pain management told her that she may benefit significantly from injections Surgery has determined that she is a surgical candidate, but will be able to have an injection ahead of surgery which has been scheduled early Jun. She is hoping to be free of nicotine 30 days ahead of surgery. Objective Vitals BP 138/84 (BP Location: Left arm, Patient Position: Sitting, BP Cuff Size: Adult) Pulse 100 SpO2 98% Physical Exam Constitutional: Appearance: Normal appearance. HENT: Head: Normocephalic and atraumatic. Nose: Nose normal. Eyes: Extraocular Movements: Extraocular movements intact. Pulmonary: Effort: Pulmonary effort is normal. No respiratory distress. Musculoskeletal: Cervical back: Normal range of motion. Neurological: General: No focal deficit present. Mental Status: She is alert. Gait: Gait abnormal. Assessment & Plan Raynaud's disease without gangrene - Stable. Pending Rheum evaluation. Refill sent. Orders: sildenafil (Revatio) 20 MG tablet; Take 1 tablet (20 mg) by mouth 2 times daily. Encounter for smoking cessation counseling - Nicotine dependence with unsuccessful prior attempt at cessation using bupropion due to adverse effects. No contraindication to varenicline (Chantix) identified. N-acetylcysteine discussed as a supplement with possible benefit. - Prescribed varenicline (Chantix) starter pack. Advised to set a quit date and reduce cigarette consumption over the first week of therapy. Discussed use of N- acetylcysteine supplement as adjunct. Advised to avoid nicotine replacement therapy per pain management recommendations. Follow-up scheduled in 2 weeks to assess progress with smoking cessation. Advised to contact if experiencing panic attacks to discuss possible as-needed lorazepam. - Risks and side effects: Advised to discontinue varenicline if adverse reaction occurs. Orders: Varenicline Tartrate, Starter, 0.5 MG X 11 & 1 MG X 42 tablet therapy pack; Take 0.5 mg by mouth Once per day for 3 days, THEN 0.5 mg 2 times daily for 4 days, THEN 1 mg 2 times daily for 21 days. Neuroforaminal stenosis of lumbar spine - Joint injections 04/18. - Surgery scheduled early June. Follow up in about 2 weeks (around 05/02/2025) for smoking cessation . Future Appointments Date Time Provider Department Center 05/02/2025 10:00 AM Sheridan Wilson PA-C [facility] This visit documentation was prepared using voice-enabled artificial intelligence software ([employer] notes). documented in this encounter Miscellaneous Notes * Assessment & Plan Note - Sheridan Wilson PA-C - 04/18/2025 10:00 AM EST Associated Problem(s): Raynaud's disease without gangrene - Stable. Pending Rheum evaluation. Refill sent. Orders: sildenafil (Revatio) 20 MG tablet; Take 1 tablet (20 mg) by mouth 2 times daily. * Assessment & Plan Note - Sheridan Wilson PA-C - 04/18/2025 10:00 AM EST Associated Problem(s): Neuroforaminal stenosis of lumbar spine - Joint injections 04/18. - Surgery scheduled early June. documented in this encounter Plan of Treatment Upcoming Encounters Date Type Department Care Team (Late st Contact Info) Description 05/02/2025 10:00 AM EST Office Visit [address] [phone] Sheridan Wilson PA-C 8 [place] [address] documented as of this encounter Visit Diagnoses Diagnosis Encounter for smoking cessation counseling- Primary Raynaud's disease without gangrene Neuroforaminal stenosis of lumbar spine documented in this encounter Additional Health Concerns Assessment Noted Time PHQ-9 Depression Total Score: 6 09/21/19 25 2:24 PM EDT documented as of this encounter Care Teams Aerodynamic Consultant Relationship Specialty Start Date End Date Sheridan Wilson PA-C 8 [place] [address] PCP - General Family Medicine 09/03/24 documented as of this encounter
--- OUTSIDE RECORDS SUMMARY | 2025-04-22 10:00 | XMS_ITS | Encounter Summary ---
Author Organization [facility] Address [address] [facility] [address] [place] [address] Phone Care Team Providers Care Calculation Clerk Name Role Phone Sheridan Wilson Primary Care Provider [phone] Reason for Visit * Occupational Therapy (Routine) - Pending Review Specialty Diagnoses / Procedures Referred By Tommy anderson Referred To Contact Occupational Therapy Diagnoses Encounter for rehabilitation Sheridan Wilson PA [address] [place] [address] Phone: tel: fax: [address] [address] Phone: tel: Referral ID Status Reason Start Date Expiration Date V isits Requested Visits Authorized [id number] Pending Review 03/27/2025 03/27/2026 1 1 Encounter Details Date Type Department Care Team (Latest Contact Info) Description 04/22/2025 10:00 AM EST Office Visit [facility] [address] [place] [address] Sheridan Wilson PA [address] [place] [address] Erin Mcdonnell, OT [address] [place] [address] [email or web address] Acquired trigger finger of right ring finger (Primary Dx) Social History Tobacco Use Types [...] Care Team (Late st Contact Info) Description 04/29/2025 10:00 AM EST Office Visit [facility] [address] [place] [address] Sheridan Wilson PA [address] [place] [address] Erin Mcdonnell, OT [address] [place] [address] [email or web address] 05/06/2025 10:00 AM EST Office Visit [facility] [address] [place] [address] Sheridan Wilson PA [address] [place] [address] Erin Mcdonnell, OT [address] [place] [address] [email or web address] 05/14/2025 3:00 PM EST Appointment [facility] [address] [place] [address] Sheridan Wilson PA [address] [place] [address] 08/07/2025 2:15 PM EST Appointment [facility], Bone Density - [address] [address] Sheridan Wilson PA [address] [place] [address] documented as of this encounter Visit Diagnoses Diagnosis Acquired trigger finger of right ring finger- Primary documented in this encounter Care Teams Calculation Clerk Relationship Specialty Start Date End Date Sheridan Wilson PA [address] [place] [address] PCP - General Physician 5Th Grade Teacher 04/02/25 documented as of this encounter Additional Source Comments The information contained in this document represents components of the legal health record. It is not the complete legal health record.[facility]
[2025-04-22 13:06] VITALS: BP 146/83; PULSE 83; RESP 16; O2SAT 96; BMI 27.4
--- NOTE | 2025-04-22 13:06 | A.OFFVIS_ITS ---
Vital Signs 04/22/25 13:06 04/22/25 14:15 Height 5 ft 1 in Weight 145 lb BMI 27.4 BP 146/83 H 178/95 H Blood Pressure Location Rt brachial Lt brachial Position Sitting Sitting Respiration 16 16 Pulse 83 82 Pulse Source Pulse Oximeter Pulse Oximeter Pulse Oximetry (%) 96 100 Oxygen Delivery Method Room Air Room Air Intake Visit Reasons: Right Diagnostic SIJ Injection Allergies Unable to Assess Allergy (Verified 04/10/25 11:25) PFSH Surgical History Hx of section Social History Household Members: None Housing: House Alcohol intake: current Alcohol intake frequency: a few times a week Patient Tobacco Use Status: Current everyday Tobacco user Tobacco use type: Cigarette Cigarettes Per Day: 12 e-Cigarette/Vaping Use: Never Used Substance Use Type: Marijuana Current occupational status: retired Cognitive needs: No Hearing needs: No Vision needs: Yes Physical Exam Vital Signs: Last Vital Signs Pulse 82 04/22/25 14:15 Resp 16 04/22/25 14:15 BP 178/95 H 04/22/25 14:15 Pulse Ox 100 04/22/25 14:15 Oxygen Delivery Method Room Air 04/22/25 14:15 BMI result Body Mass Index 27.4 Assessment & Plan Assessment & Plan (1) Sacroiliac joint dysfunction of right side: Code(s): M53.3 - Sacrococcygeal disorders, not elsewhere classified Category: Medical (2) Sacroiliitis: Code(s): M46.1 - Sacroiliitis, not elsewhere classified Category: Medical Plan Diagnostic right sacroiliac joint injection. the risks, benefits and alternatives were discussed with the patient and informed consent was obtained, patient was placed in the prone position and padded to foster comfort. Time out was performed delineating correct site and side of the procedure , name and of the patient, patient participated in time out procedure. The lower back and upper buttocks of the patient were prepped with ChloraPrep and draped with sterile self adhesive utility towels. C-arm was brought over the operating field and picture of the right SI joint was demonstrated on the screen. Tilting C-arm contralateral to the left the posterior silhouette of the sacroiliac joint was superimposed on anterior silhouette of the sacroiliac joint. The point slightly medial to the sacroiliac joint silhouette was injected with lidocaine 2%, forming skin wheal. After that 22 gauge 3-1/2 inch spinal needle was inserted through the skin wheal and advanced to were the sacroiliac joint in tunnel vision fashion. When the needle entered the sacroiliac joint capsule injection of the contrast was performed delineating intra-articular and minimally periarticular spread of the contrast. After that injection of the treatment solution of ropivacaine 0.5% 5 cc into the joint was performed. Upon completion of the injection needle was withdrawn sterile Band- Aid was applied. The patient tolerated the procedure well. Orders: Orders FL guidance in treatment room Today M53.3 - Sacrococcygeal disorders, not elsewhere classified Coding Level of Care Code Procedure Only Diagnoses Sacroiliac joint dysfunction of right side M53.3 Sacroiliitis M46.1
[2025-04-22 14:15] VITALS: BP 178/95; PULSE 82; RESP 16; O2SAT 100
--- OUTSIDE RECORDS SUMMARY | 2025-04-22 14:51 | XMS_ITS | Encounter Summary ---
Author Organization [employer] Address [address] [facility] 7t [place] [address] Care Team Providers Care Auto Inspection Specialist Name Role Phone Sheridan Wilson PA-C Primary Care Provider [phone] Encounter Details Date Type Department Care Team (Late st Contact Info) Description 2025 Orders Only [facility] [address] [place], [place] [id number] Provider, Not In System Social History Tobacco [...] Description 05/02/2025 10:00 AM EST Office Visit [facility] 8 [place] [address] Sheridan Wilson PA-C [address] [place] [address] documented as of this encounter Procedures Procedure [...] documented as of this encounter Care Teams Auto Inspection Specialist Relationship Specialty Start Date End Date Sheridan Wilson PA-C [address] [place] [address] PCP - General Family Medicine 09/03/24 documented as of this encounter
--- OUTSIDE RECORDS SUMMARY | 2025-04-22 14:51 | XMS_ITS | Encounter Summary ---
Author Organization [employer] Address [address] [facility] 7 [place] [address] Care Team Providers Care Storage Battery Tester Name Role Phone Sheridan Wilson PA-C Primary Care Provider [phone] Encounter Details Date Type Department Care Team ([facility] st Contact Info) Description 01/14/2025 Telephone [facility] [address] [place] [address] Sheridan Wilson PA-C [address] [place] [address] Social History Tobacco Use Types Packs/Day [...] the past 12 months, has t he [employer], gas, oil or water [employer] threatened to shut off services in your [...] 10:12 AM EDT Verified Insurance: Yes Referral Office:[facility] General Surgery Diagnosis Code:K57.20 Number of Visits Needed:12 NPI# of Facility: NPI# of Provider being referred to:[id number] Phone #: [phone] Fax #: [phone] Date of Service : 10/24/24 documented in this encounter Plan of Treatment Upcoming Encounters Date Type Department Care Team (Late st Contact Info) Description 05/02/2025 10:00 AM EST Office Visit [facility] [address] [place] [address] Sheridan Wilson PA-C [address] [place] [address] documented as of this encounter Visit Diagnoses Not on filedocumented in this encounter Additional Health Concerns Assessment Noted Time PHQ-9 Depression Total Score: 6 09/21/19 25 2:24 PM EDT documented as of this encounter Care Teams Storage Battery Tester Relationship Specialty Start Date End Date Sheridan Wilson PA-C [address] [place] [address] PCP - General Family Medicine 09/03/24 documented as of this encounter
--- OUTSIDE RECORDS SUMMARY | 2025-04-22 14:51 | XMS_ITS | Encounter Summary ---
Author Organization [employer] Address [address] [facility] 7t [place] [address] Care Team Providers Care Corporate Banking Officer Name Role Phone Sheridan Wilson PA-C Primary Care Provider [phone] Encounter Details Date Type Department Care Team (Late st Contact Info) Description 12/12/2024 Orders Only [facility] [address] [place], [place] [phone] Provider, Not In System Social History Tobacco [...] the past 12 months, has t he [employer], gas, oil or water [employer] threatened to shut off services in your [...] Description 05/02/2025 10:00 AM EST Office Visit [address] [address] Sheridan Wilson PA-C [address] [place] [address] documented as of this encounter Procedures Procedure [...] documented as of this encounter Care Teams Corporate Banking Officer Relationship Specialty Start Date End Date Sheridan Wilson PA-C [address] [place] [address] PCP - General Family Medicine 09/03/24 documented as of this encounter
--- OUTSIDE RECORDS SUMMARY | 2025-04-22 14:51 | XMS_ITS | Clinical Summary ---
Author Organization [facility] Address [address] [place] [address] Phone Care Team Providers Care Fire Chief Deputy Name Role Phone Sheridan Wilson Primary Care Provider Encounters Date Type Department Care Team Description 04/22/2025 10:00 AM EST Office Visit [facility] Rehabilitation Services [address] [place] [address] Sheridan Wilson PA Greenebaum, Sarah A, OT Acquired trigger finger of right ring finger (Primary Dx) 2025 Transcribe Orders [facility] - Virtual Department [address] [place] [address] Sheridan Wilson PA Raynaud's disease without gangrene (Primary Dx) 03/27/2025 Transcribe Orders [facility] Rehabilitation Services [address] [place] [address] Sheridan Wilson PA Encounter for rehabilitation (Primary Dx) 03/18/2025 Transcribe Orders Virtual Department [address] [place] [address] Sheridan Wilson PA SOB (shortness of breath) [...] Description 04/29/2025 10:00 AM EST Office Visit [facility] [address] [place] [address] Sheridan Wilson PA [address] [place] [address] Erin Mcdonnell, OT [address] [place] [address] [email or web address] 05/06/2025 10:00 AM EST Office Visit [address] [place] [address] Sheridan Wilson PA [address] [place] [address] Erin Mcdonnell, OT [address] [place] [address] [email or web address] 05/14/2025 3:00 PM EST Appointment [facility] [address] [place] [address] Sheridan Wilson PA [address] [place] [address] 08/07/2025 2:15 PM EST Appointment [facility], Bone Density - [facility] [address] [place] [address] Sheridan Wilson PA [address] [place] [address] Health Maintenance Due Date Last Done Comments [...] Devices Not on file Insurance [facility] RE[facility] MEDICARE REPLACEMENT [facility] MEDICARE [facility]EMENT [facility] MEDIC[facility] REPLACEMENT [facility] MEDIC[facility] Care Teams Fire Chief Deputy Relationship Specialty Start Date End Date Sheridan Wilson PA [address] [place] [address] PCP - General Physician Database Marketing Specialist 04/02/25 Additional Source Comments The information contained in this document represents components of the legal health record. It is not the complete legal health record.[facility]
--- OUTSIDE RECORDS SUMMARY | 2025-04-22 14:51 | XMS_ITS | Clinical Summary ---
Author Organization [employer] Address [address] [facility] 7t [place] [address] Care Team Providers Care Front Elevator Operator Name Role Phone Sheridan Wilson PA-C Primary Care Provider [phone] Allergies No known active allergies Medications Multiple [...] Description 04/18/2025 10:00 AM EST Office Visit [address] [address] Sheridan Wilson PA-C Encounter for smoking cessation counseling (Primary Dx); Raynaud's disease without gangrene; Neuroforaminal stenosis of lumbar spine 04/11/[address] [address] Sheridan Wilson PA-C Anxiety; Spinal stenosis of lumbar region, unspecified whether neurogenic claudication present 2025 Orders Only [facility] [address] [place] [address] Provider, Not In System 04/07/[address] [address] Sheridan Wilson PA-C Spinal stenosis of cervicothoracic region; Neuroforaminal stenosis of lumbar spine 04/02/2025 8:20 AM EDT Office Visit [address] [address] Sheridan Wilson PA-C Encounter for pain management (Primary Dx); Encounter for long-term (current) use of medications; Spinal stenosis of cervicothoracic region; Neuroforaminal stenosis of lumbar spine 04/02/2025 Orders Only [facility] [address] [address] Sheridan Wilson PA-C 03/27/2025 10:20 AM EDT Office Visit [address] [phone] Sheridan Wilson PA-C Trigger ring finger of left hand (Primary Dx); Spinal stenosis of cervicothoracic region; Neuroforaminal stenosis of lumbar spine; Hand swelling 03/27/[address] [address] Sheridan Wilson PA-C 03/20/[address] [address] Sheridan Wilson PA-C 03/12/2025 3:40 PM EDT Office Visit [address] [phone] Sheridan Wilson PA-C Polyarthralgia (Primary Dx); Encounter for immunization; Elevated antinuclear antibody (JUDI) level; Shortness of breath; Neuroforaminal stenosis of lumbar spine 03/12/[address] [address] Sheridan Wilson PA-C 03/12/2025 Telephone [facility] [address] [facility] [address] [place] [phone] Sheridan Wilson PA-C 03/06/2025 Orders Only [facility] [address] [place] [address] Provider, Not In System 03/05/[address] [address] Sheridan Wilson PA-C from Last 3 Months [...] Description 05/02/2025 10:00 AM EST Office Visit [address] [phone] Sheridan Wilson PA-C [address] [place] [address] Health Maintenance Due Date Last Done Comments [...] Amphetamines NEGATIVE <10 ng/mL [facility] [place] Barbiturates NEGATIVE <10 ng/mL [facility] [place] [facility] Benzodiazepines NEGATIVE <0.50 ng/mL [facility] [place] [facility] Buprenorphine, Oral Fluid NEGATIVE <0.10 ng/mL [facility] [place] Cocaine, oral fluid NEGATIVE <5.0 ng/mL [facility] [place] Fentanyl NEGATIVE <0.10 ng/mL [facility] [place] [facility] Heroin Metabolite NEGATIVE <1.0 ng/mL [facility] [place] Marijuana, oral fluid POSITIVE(A) <2.5 ng/mL [facility] [place] THC 5.1(H) <2.5 ng/mL [facility] MDMA Screen, Oral Fluid NEGATIVE <10 ng/mL [facility] [place] Meprobamate NEGATIVE <2.5 ng/mL [facility] [place] Methadone, Oral Fluid NEGATIVE <5.0 ng/mL [facility] [place] Nicotine Metabolite POSITIVE(A) <5.0 ng/mL [facility] [place] Cotinine 59.6(H) <5.0 ng/mL [facility] Comment: Cotinine is a metabolite of nicotine. Opiates, oral fluid POSITIVE(A) <2.5 ng/mL [facility] [place] Codeine, Oral Fluid Negative <2.5 ng/mL [facility] [place] Dihydrocodeine Negative <2.5 ng/mL [facility] [place] Hydrocodone Negative <2.5 ng/mL [facility] [place] Hydromorphone, Oral Fluid Negative <2.5 ng/mL [facility] [place] Morphine Negative <2.5 ng/mL [facility] [place] Norhydrocodone Negative <2.5 ng/mL [facility] [place] Noroxycodone 6.0(H) <2.5 ng/mL [facility] Comment: Noroxycodone is a metabolite of oxycodone. Oxycodone 10.0(H) <2.5 ng/mL [facility] [place] Oxymorphone Negative <2.5 ng/mL [facility] [place] Phencyclidine, oral fluid NEGATIVE <10 ng/mL [facility] [place] Tapentadol NEGATIVE <5.0 ng/mL [facility] [place] Tramadol, Oral Fluid NEGATIVE <5.0 ng/mL [facility] [place] Zolpidem NEGATIVE <5.0 ng/mL [facility] Comment: For additional information, please refer to http://education.Acquaintable/faq/OCQ066 (This link is being provided for informational/ educational purposes only.) This drug testing is for medical treatment only. Analysis was performed as non-forensic testing and these results should be used only by healthcare providers to render diagnosis or treatment, or to monitor progress of medical conditions. For assistance with interpreting these drug results, please contact a [facility] Toxicology Specialist: [phone] ( ), M-F, 8am-6pm EST. These tests were developed and their analytical performance characteristics have been determined by [facility]. They have not been cleared or approved by the FDA. These assays have been validated pursuant to the CLIA regulations and are used for clinical purposes. 04/02/2025 9:40 AM EDT 04/02/2025 9:40 AM EDT us Sheridan Wilson PA-C LAB BODY FLUIDS AND STOOLS OR DERABLES Final Result [facility] [address], [place] [address] [facility] [address] [facility] [place] [address] * XR Spine Lumbar 1 View Only [...] AM EDT) Cholesterol, Total 246(H) <200 mg/dL [facility] HDL Cholesterol 64 > OR = 50 mg/dL [facility] Triglycerides 140 <150 mg/dL [facility] LDL Cholesterol 156(H) mg/dL [facility] Comment: Reference range: <100 Desirable range <100 mg/dL for primary prevention; <70 mg/dL for patients with CHD or diabetic patients with > or = 2 CHD risk factors. LDL-C is now calculated using the Cinthia calculation, which is a validated novel method providing better accuracy than the Friedewald equation in the estimation of LDL-C. Paul LAU et al. MYRIAM. 2013;310(19): 8577-8751 (http://education.Acquaintable/faq/AHE988) Chol/HDLC Ratio 3.8 <5.0 (calc) [facility] Non-HDL Cholesterol 182(H) <130 mg/dL [facility] Comment: For patients with diabetes plus 1 major ASCVD risk factor, treating to a non-HDL-C goal of <100 mg/dL (LDL-C of <70 mg/dL) is considered a therapeutic option. Blood 10/30/2024 11:0 9 AM EDT 10/30/2024 11:10 AM EDT Narrative [facility] - 10/31/2024 5:11 AM EDT SPLIT 10/23/2024 FROM [id number] us Sheridan Wilson PA-C LAB BLOOD ORDERABLES Final Re sult [facility] [address], [place] [address] [facility] [address] [place] [address] * Hm Colonoscopy (03/10/2023 11:50 AM EDT) us Not In System Provider HEALTH MAINTENANCE Edited Result - Final from Last 3 Months or Most Recently Relevant to Health Maintenance Insurance [facility] MEDICARE ADVANTAGE [facility] PARTIAL Care Teams Front Elevator Operator Relationship Specialty Start Date End Date Sheridan Wilson PA-C [address] [place] [address] PCP - General Family Medicine 09/03/24
--- OUTSIDE RECORDS SUMMARY | 2025-04-22 14:51 | XMS_ITS | Encounter Summary ---
Author Organization [employer] Address [address] [facility] 7t [place] [address] Care Team Providers Care Tube Test Technician Name Role Phone Sheridan Wilson PA-C Primary Care Provider [phone] Encounter Details Date Type Department Care Team (Late st Contact Info) Description 03/20/[address] [address] Sheridan Wilson PA-C [address] [place] [address] Social History Tobacco Use Types Packs/Day [...] the past 12 months, has t he [employer], gas, oil or water [employer] threatened to shut off services in your [...] 10:20 AM Sheridan Wilson PA-C [facility] 04/11/2025 12:40 PM Sheridan Wilson PA-C [facility] Comments: * Telephone Encounter - Gracie Weaver - 03/20/2025 1:25 PM EDT Prescribing Provider: Sheridan Wilson Medication Name: Oxycodone Dosage: 5 mg 5 Days or More Supply: No Pt has an appointment with Sheridan on 03/27. Pharmacy: [facility]/pharmacy #[id number] [place] [address] documented in this encounter Plan of Treatment Upcoming Encounters Date Type Department Care Team (Late st Contact Info) Description 05/02/2025 10:00 AM EST Office Visit [address] [phone] Sheridan Wilson PA-C [address] [place] [address] documented as of this encounter Visit Diagnoses Diagnosis Neuroforaminal stenosis of lumbar spine documented in this encounter Additional Health Concerns Assessment Noted Time PHQ-9 Depression Total Score: 6 09/21/19 25 2:24 PM EDT documented as of this encounter Care Teams Tube Test Technician Relationship Specialty Start Date End Date Sheridan Wilson PA-C [address] [place] [address] PCP - General Family Medicine 09/03/24 documented as of this encounter
--- OUTSIDE RECORDS SUMMARY | 2025-04-22 14:51 | XMS_ITS | Encounter Summary ---
Author Organization [employer] Address 75 [facility] 7t [place] [address] Care Team Providers Care Floor Cashier Name Role Phone Sheridan Wilson PA-C Primary Care Provider [phone] Encounter Details Date Type Department Care Team (Late st Contact Info) Description 03/06/2025 Orders Only [facility] [address] [place], [place] [phone] Provider, Not In System Social History Tobacco [...] Description 05/02/2025 10:00 AM EST Office Visit [facility] [address] [place] [address] Sheridan Wilson PA-C [address] [place] [address] documented as of this encounter Procedures Procedure [...] documented as of this encounter Care Teams Floor Cashier Relationship Specialty Start Date End Date Sheridan Wilson PA-C [address] [place] [address] PCP - General Family Medicine 09/03/24 documented as of this encounter
== END 2025-04-22 14:14 | disposition home or self-care (01) ==
LOC: HO.PMCPRC 13:05
PROVIDERS: PCP Student in an Organized Health Care Education/Training Program; Visit Provider Anesthesiology
DX: M53.3 Sacrococcygeal disorders, not elsewhere classified (principal); M46.1 Sacroiliitis, not elsewhere classified
CPT/HCPCS: 27096

== ENCOUNTER 2025-04-24 08:39 | Outpatient (AMB) | payer OTHER, MEDICAID, SELFPAY ==
--- OUTSIDE RECORDS SUMMARY | 2025-04-22 10:00 | XMS_ITS | Encounter Summary ---
Author Organization [facility] Address [address] [facility] [address] [place] [address] Phone Care Team Providers Care Atlassian Administrator Name Role Phone Sheridan Wilson Primary Care Provider [phone] Reason for Visit * Occupational Therapy (Routine) - Pending Review Specialty Diagnoses / Procedures Referred By Tommy anderson Referred To Contact Occupational Therapy Diagnoses Encounter for rehabilitation Sheridan Wilson PA [address] [place] [address] Phone: tel: fax: [address] [address] Phone: tel: Referral ID Status Reason Start Date Expiration Date V isits Requested Visits Authorized [id number] Pending Review 03/27/2025 03/27/2026 1 1 Encounter Details Date Type Department Care Team (Latest Contact Info) Description 04/22/2025 10:00 AM EST Office Visit [facility] Rehabilitation Services [address] [place] [address] Sheridan Wilson PA [address] [place] [address] Erin Mcdonnell, OT [address] [place] [address] [email or web address] Acquired trigger finger of left ring finger (Primary Dx) Social History Tobacco [...] on file documented as of this encounter Progress Notes * Erin Mcdonnell, OT - 04/22/2025 10:00 AM EST Occupational Therapy Hand/Upper Extremity Evaluation Patient Name: Amy Bey Date of : 1955 Referring MD: Sheridan Wilson PA [address] [place] [address] Evaluation Date: 04/22/2025 Diagnosis: Acquired trigger finger of left ring finger [M65.342] Date of Injury: 3-4 months Date of Surgery: n/a Dominant Hand: left Subjective/History of Present Illness: Pt reports 3-4 month history of left ring finger trigger symptoms. Also with c/o right thumb stiffness. Pt referred to OT for treatment of left ring finger trigger finger symptoms. Pain at rest: 6-7 /10 Pain when active: 10 /10 Pain at worst: 10/10 Pain location/comments: over 10/10 pain when left RF triggers Pertinent Medical History and Co-morbidities: Raynauds, anxiety, arthritis/osteoporosis, depression, high cholesterol, previous fractures, wears progressive lenses, jaw and ankle surgery, c-sect, colon surgery Precautions: left RF trigger, bad back pain (scheduled surgery 06/2025) Social History: Pt dtr is her primary contact Pt likes to visit with family Occupational History/Demands: retired Previous Functional Level: independnet with all Functional loss due to affected hand: ADL: hard to do fine motor tasks IADL: drops things, hard to do fine motor tasks Leisure: hard to do fine motor tasks Edema/Appearance: min/mod around left RF trigger area Sensation: no c/o N&T Objective Findings (Including functional impairments): Range of Motion: R/L R L MP/PIP/DIP MP/PIP/DIP IF MF RF 83/84/60 75/80/55 SF Thumb MP/IP RA/PA Abd [place] [employer] Program Planner Strength: Date 04/22/25 Right 38 Left 26 9 Hole Peg Test: Date 04/22/25 Right 20 Left 22 Special Tests/MMT: Outcome Measures (Quick DASH): Splinting: fabricated, fit and trained in left RF trigger finger splint to block MP joint. Reviewedwearing schedule and precautions Barriers to Learning: none Amy Bey will benefit from skilled therapy intervention. Prognosis: Good Clinical Assessment: Pt is a 70 y/o woman referred to OT with diagnosis: L RF trigger finger. Pt presents to OT with edema and scar management needs, splinting needs, decreased ROM/strength/function. Pt would benefit from skilled OT services to work toward increased ROM/strength and function LUE. Goals: Short Term Goals (1-4 weeks): 1. Pt to demonstrate increased L RF PIP flexion by 5-10 degrees toward increased composite fist 2. Pt to demonstrate increased L RF MP flexion by 5-10 degrees toward increased function with ADL tasks 3. Pt to report decreased pain L RF to 3-4/10 with ADL tasks 4. Pt to be independent in HEP including soft tissue/scar management, edema management, ROM, strengthening and functional retraining tasks Shop And Alteration Tailor Goals (4-8 weeks) 1. Pt to demonstrate increased L histology aide strength by 3-5# for increased use with iADL tasks 2. Pt to demonstrate improved fine motor coordination L hand as noted by increased speed on 9-hole peg test by 1-3 seconds 3. Pt to verbalize and demonstrate understanding of splint wearing schedule and precautions Patient Stated Goal: Get rid of trigger Intervention plan: Treatment plan to include: ADL retraining, A/A/PROM, therapeutic exercises, therapeutic activities,strengthening, edema and scar management strategies, modalities, splint fabrication, splint training, functional/fine motor retraining tasks PLAN Frequency and Duration: Patient will be seen 1-2 times per week for 6-8 weeks. Education and/or treatment provided today: Issued and trained pt in written HEP to add retrograde edema massage and scar massage, tendon gliding to HEP. Fabricated daytime trigger finger splint for pt to wear on RF to help decrsae triggering. Suggested bandaid splint for PIP joint for night time use. The Patient/Family is in agreement with the plan of care. Thank you for this referral. EMILY Navas OT [id number] documented in this encounter Plan of Treatment Upcoming Encounters Date Type Department Care Team (Late st Contact Info) Description 04/29/2025 10:00 AM EST Office Visit [address] [address] Sheridan Wilson PA [address] [place] [address] Erin Mcdonnell, OT [address] [place] [address] [email or web address] 05/06/2025 10:00 AM EST Office Visit [address] [address] Sheridan Wilson PA [address] [place] [address] Erin Mcdonnell, OT [address] [place] [address] [email or web address] 05/14/2025 3:00 PM EST Appointment [facility] [address] [place] [address] Sheridan Wilson PA [address] [place] [address] 08/07/2025 2:15 PM EST Appointment [facility], Bone Density - [address] [address] Sheridan Wilson PA [address] [place] [address] documented as of this encounter Visit Diagnoses Diagnosis Acquired trigger finger of left ring finger- Primary documented in this encounter Care Teams Atlassian Administrator Relationship Specialty Start Date End Date Sheridan Wilson PA [address] [place] [address] PCP - General Physician Night Shift Supervisor 04/02/25 documented as of this encounter Additional Source Comments The information contained in this document represents components of the legal health record. It is not the complete legal health record.[facility]
[2025-04-24 08:47] VITALS: BP 143/83; PULSE 16; RESP 104; O2SAT 98; BMI 26.6
--- NOTE | 2025-04-24 08:47 | A.OFFVIS_ITS ---
Vital Signs 04/24/25 08:47 Height 5 ft 1 in Weight 141 lb BMI 26.6 BP 143/83 H Blood Pressure Location Rt brachial Position Sitting Respiration 104 H Pulse 16 L Pulse Source Pulse Oximeter Pulse Oximetry (%) 98 Oxygen Delivery Method Room Air Intake Visit Reasons: S/P Right Diagnostic SIJ Injection Medical Reimbursement Manager Required: No Accompanied by: Self / Same As Patient Allergies Unable to Assess Allergy (Verified 04/24/25 08:53) HPI Comments Details: Amy is back in my office after diagnostic right sacroiliac joint injection. She reported pain before the procedure was 8/10. Pain immediately after procedure was 2 to 3/10 Pain 1 hour after the procedure was 3/10 Pain 2 hours after procedure was 6/10, patient had to apply ice to the injection site, states that pain is coming not from the skin but rather her regular chronic pain. 3 hours after procedure pain was 4/10 4 hours after procedure pain was 3/10 Pain 5 hours after procedure was 0/10 and pain remains 0/10 until 8 hours after procedure. Most likely we found 1 of the pain generators of this patient however I believe that she might have also facet joint arthropathy and spondylosis of the lumbar spine. I offered her today to perform diagnostic bilateral medial branch block L3, L4, dorsal ramus L5 . Patient agreed to go for the procedure. We will compare results of the medial branch block to results of the diagnostic SI joint injection. After that we will decide what area of pain we would need to address 1st. Prior: with complains on pain in the lower back with radiation of the pain down to the right lower extremity to the level of the knee but not below that level. She reports flexing forward as well as flexing backwards both aggravate her pain. Standing increases her pain. Laying down on the left side alleviate her pain. She is unable to sleep normally can not do activities of daily living, she is able to take care of herself but she is unable to function normally. She is retired individual. She reported that her pain started 20 years ago and she does not know what is the cause of her pain. She reports her pain in terms of tissue damage as jumping, flushing, shooting, sharp, cutting, lacerating, dull, aching, heavy sensation, fearful fried full and terrifying sensation. She had multiple images duration of the spinal surgery by Dr. Mancini MRI and CT scan. Those images demonstrated some stress reaction from the spondylolisthesis on the facet joints with moderate foraminal stenosis L4-5 and L5-S1. She had physical therapy 1.5 years ago and she reported minimal help with the pain. She had chiropractic manipulations when she was 22 years old she does not remember if it was helping her pain. [facility] Surgical History Hx of section Social History Household Members: None Housing: House Alcohol intake: current Alcohol intake frequency: a few times a week Patient Tobacco Use Status: Current everyday Tobacco user Tobacco use type: Cigarette Cigarettes Per Day: 12 e-Cigarette/Vaping Use: Never Used Substance Use Type: Marijuana Current occupational status: retired Cognitive needs: No Hearing needs: No Vision needs: Yes Review of Systems Const All systems reviewed & are unremarkable except as noted in HPI and below ENT Reports Normal hearing present Neuro Reports Normal hearing present, Denies Abnormal speech present, Denies confusion and Denies Sensory deficit (Neuro) Psych Denies confusion Physical Exam Const General: no acute distress; No confusion Orientation/consciousness: patient oriented x3 and No confusion Eyes General: appearance normal, both eyes and all related structures Pupils: Equal, round and reactive pupils present EOM: EOMs intact bilaterally Neck Neck: Yes full ROM Chest Chest palpation & inspection: normal inspection of the chest Resp Effort & Inspection: normal respiratory effort, able to speak in complete sentences, normal respiratory pattern, no audible wheezes and no cough Cardio Jugular venous distension: no JVD GI Inspection: Yes normal to inspection Back/Spine/Pelvis Other: Able to stand on bilateral tiptoes in bilateral heels without difficulty demonstrating normal strength of bilateral lower extremities. Denies any numbness in bilateral lower extremities. SLR is negative bilaterally. Lasegue test is negative bilaterally. Patellar reflexes +2 symmetrical bilateral, Achilles reflexes +1 symmetrical bilateral, Dennis test is positive on the right, loading spine test is positive bilaterally,, Gaenslen test is positive on the right, Maidens test is positive on the right. Neuro General: patient oriented x3, gait normal and No confusion Cranial nerves: Yes CN's II-XII intact bilaterally, Yes Equal, round and r eactive pupils present, Yes Normal hearing present and Yes Ability to bilaterally elevate shoulders present Speech: No Abnormal speech present Gait exam (Neuro): Normal gait present Motor exam (neuro): 5/5 motor strength present throughout Sensory Exam: No Sensory deficit (Neuro) Extrem General: No pedal edema Psych Speech and movement: Normal speech and movement present Affect: normal affect Attitude: cooperative Thought process: Normal thought process present Thought content: Normal thought content present Insight: Good insight present (Psych) Judgement: Good judgement present (Psych) Assessment & Plan Assessment & Plan (1) Spondylosis of lumbar region without myelopathy or radiculopathy: Code(s): M47.816 - Spondylosis without myelopathy or radiculopathy, lumbar region Category: Medical (2) Sacroiliac joint dysfunction of right side: Code(s): M53.3 - Sacrococcygeal disorders, not elsewhere classified Category: Medical (3) Chronic pain syndrome: Code(s): G89.4 - Chronic pain syndrome Category: Medical (4) Sacroiliitis: Code(s): M46.1 - Sacroiliitis, not elsewhere classified Category: Medical Plan There is moderate foraminal stenosis bilaterally on this patient MRI however on physical exam I do not believe her pain generators is coming from the nerve root compressions. Very prominent physical signs of spondylosis of the lumbar spine and right sacroiliac joint dysfunction. She went for diagnostic sacroiliac j oint injection results see as above. I still want to perform diagnostic medial branch block and see how this will affect the patient's pain. After that we will decide what of the pain we would need to address 1st : Whether it will be sacroiliac joint or spondylosis of the lumbar spine. Continue baclofen. Coding Level of Care Code Est Pt Level 3 (70683) Diagnoses Spondylosis of lumbar region without myelopathy or radiculopathy M47.816 Sacroiliac joint dysfunction of right side M53.3 Chronic pain syndrome G89.4 Sacroiliitis M46.1
--- OUTSIDE RECORDS SUMMARY | 2025-04-24 09:01 | XMS_ITS | Encounter Summary ---
Author Organization [employer] Address 75 [facility] 7t [place] [address] Care Team Providers Care Etl Database Developer Name Role Phone Sheridan Wilson PA-C Primary Care Provider [phone] Encounter Details Date Type Department Care Team (Late st Contact Info) Description 03/06/2025 Orders Only [facility] [address] [place], [place] [phone] Provider, Not In System Social History Tobacco [...] Description 05/02/2025 10:00 AM EST Office Visit [facility] 8 [place] [address] Sheridan Wilson PA-C 8 [place] [address] documented as of this encounter Procedures Procedure [...] documented as of this encounter Care Teams Etl Database Developer Relationship Specialty Start Date End Date Sheridan Wilson PA-C [address] [place] [address] PCP - General Family Medicine 09/03/24 documented as of this encounter
--- OUTSIDE RECORDS SUMMARY | 2025-04-24 09:01 | XMS_ITS | Encounter Summary ---
Author Organization [employer] Address 75 [facility] 7t [place] [address] Care Team Providers Care Radio Operator Ground Name Role Phone Sheridan Wilson PA-C Primary Care Provider [phone] Encounter Details Date Type Department Care Team (Late st Contact Info) Description 12/12/2024 Orders Only [facility] [address] [place], [place] [phone] Provider, Not In System Social History Tobacco [...] the past 12 months, has t he [employer], gas, oil or water [employer] threatened to shut off services in your [...] Description 05/02/2025 10:00 AM EST Office Visit [address] [address] Sheridan Wilson PA-C 8 [place] [address] documented as of this encounter Procedures Procedure [...] documented as of this encounter Care Teams Radio Operator Ground Relationship Specialty Start Date End Date Sheridan Wilson PA-C [address] [place] [address] PCP - General Family Medicine 09/03/24 documented as of this encounter
--- OUTSIDE RECORDS SUMMARY | 2025-04-24 09:01 | XMS_ITS | Encounter Summary ---
Author Organization [facility] Address [address] [employer] [address] [place] [address] Phone Care Team Providers Care Sorting Cows Worker Name Role Phone Sheridan Wilson Primary Care Provider [phone] Encounter Details Date Type Department Care Team (Latest Contact Info) Description 04/23/2025 Plan of Care Documentation [facility] [address] [place] [address] [place] [address] Social History Tobacco Use Types Packs/Day Years [...] on file documented as of this encounter Miscellaneous Notes * Outpatient Rehab Plan of Care - Erin Mcdonnell OT - 04/23/2025 6:29 PM EST [facility]UM[facility] HEALTH CARE FINANCING ADMINISTRATION PLAN OF TREATMENT FOR OUTPATIENT REHABILITATION (Complete for Initial Claims Only) 1. PROVIDER NAME: Erin Mcdonnell OT 2. 3. ONSET DATE: 03/27/25 4. SOC DATE: 04/22/25 5. PRIMARY DIAGNOSIS: 1. Acquired trigger finger of left ring finger 6. VISITS FROM SOC: 1 7. PLAN OF TREATMENT FUNCTIONAL GOAL Short Term Goals (1-4 weeks): 1. Pt [...] management, ROM, strengthening and functional retraining tasks Nursing Home Goals (4-8 weeks) 1. Pt to demonstrate increased L pharmacy manager strength by 3-5# for increased use with [...] 1-2 times per week for 6-8 weeks. 8. SIGNATURE (professional establishing POC including prof. Designation): Erin Mcdonnell OT 9. INITIAL ASSESSMENT (History, medical complications, level of function at start of care. Reason for referral) Please refer to initial assessment note for full documentation. 10. FUNCTIONAL LEVEL (End of Billing Period) PROGRESS REPORT Please refer to progress notes and Plan of Care for documentation of patient progress. documented in this encounter Plan of Treatment Upcoming Encounters Date Type Department Care Team (Late st Contact Info) Description 04/29/2025 10:00 AM EST Office Visit [facility] [address] [place] [address] [place] [address] Sheridan Wilson PA [address] [place] [address] Erin Mcdonnell OT [address] [place] [address] [email or web address] 05/06/2025 10:00 AM EST Office Visit [address] [place] [address] Sheridan Wilson PA [address] [place] [address] Erin Mcdonnell, OT [address] [place] [address] [email or web address] 05/14/2025 3:00 PM EST Appointment [facility] [address] [place] [address] Sheridan Wilson PA [address] [place] [address] 08/07/2025 2:15 PM EST Appointment [facility], Bone Density - [address] [address] Sheridan Wilson PA [address] [place] [address] documented as of this encounter Visit Diagnoses Not on filedocumented in this encounter Care Teams Sorting Cows Worker Relationship Specialty Start Date End Date Sheridan Wilson PA [address] [place] [address] PCP - General Physician Rot[employer] Press Operator 04/02/25 documented as of this encounter Additional Source Comments The information contained in this document represents components of the legal health record. It is not the complete legal health record.[facility]
--- OUTSIDE RECORDS SUMMARY | 2025-04-24 09:01 | XMS_ITS | Encounter Summary ---
Author Organization [employer] Address [address] [facility] 7t [place] [address] Care Team Providers Care Coin Counter And Wrapper Name Role Phone Sheridan Wilson PA-C Primary Care Provider [phone] Encounter Details Date Type Department Care Team (Late st Contact Info) Description 03/20/[address] [address] Sheriadn Wilson PA-C [address] [place] [address] Social History Tobacco Use Types Packs/Day [...] the past 12 months, has t he [employer], gas, oil or water [employer] threatened to shut off services in your [...] an appointment with Sheridan on 03/27. Pharmacy: [facility]/pharmacy #[id number] [place] [address] documented in this encounter Plan of Treatment Upcoming Encounters Date Type Department Care Team (Late st Contact Info) Description 05/02/2025 10:00 AM EST Office Visit [address] [address] Sheridan Wilson PA-C [address] [place] [address] documented as of this encounter Visit Diagnoses Diagnosis Neuroforaminal stenosis of lumbar spine documented in this encounter Additional Health Concerns Assessment Noted Time PHQ-9 Depression Total Score: 6 09/21/19 25 2:24 PM EDT documented as of this encounter Care Teams Coin Counter And Wrapper Relationship Specialty Start Date End Date Sheridan Wilson PA-C [address] [place] [address] PCP - General Family Medicine 09/03/24 documented as of this encounter
--- OUTSIDE RECORDS SUMMARY | 2025-04-24 09:01 | XMS_ITS | Encounter Summary ---
Author Organization [employer] Address 75 [facility] 7t [place] [address] Care Team Providers Care National Expansion Recruiter Name Role Phone Sheridan Wilson PA-C Primary Care Provider [phone] Encounter Details Date Type Department Care Team (Late st Contact Info) Description 2025 Orders Only [facility] [address] [place], [place] [phone] Provider, Not In System Social History Tobacco [...] Description 05/02/2025 10:00 AM EST Office Visit [facility] 8 [place] [address] Sheridan Wilson PA-C 8 [place] [address] documented as of this encounter Procedures Procedure [...] documented as of this encounter Care Teams National Expansion Recruiter Relationship Specialty Start Date End Date Sheridan Wilson PA-C [address] [place] [address] PCP - General Family Medicine 09/03/24 documented as of this encounter
--- OUTSIDE RECORDS SUMMARY | 2025-04-24 09:02 | XMS_ITS | Clinical Summary ---
Author Organization [facility] Address [address] [place] [address] Phone Care Team Providers Care Eeg Technologist Name Role Phone Sheridan Wilson Primary Care Provider Encounters Date Type Department Care Team Description 04/23/2025 Plan of Care Documentation [facility] [address] [place] [address] 04/22/2025 10:00 AM EST Office Visit [facility] [address] [place] [address] [place] [address] Sheridan Wilson PA Greenebaum, Sarah A, OT Acquired trigger finger of left ring finger (Primary Dx) 2025 Transcribe Orders [facility] - Virtual Department [address] [place] [address] Sheridan Wilson PA Raynaud's disease without gangrene (Primary Dx) 03/27/2025 Transcribe Orders [facility] [address] [place] [address] Sheridan Wilson PA Encounter for rehabilitation (Primary Dx) 03/18/2025 Transcribe Orders Virtual Department [address] [place] [address] Sheridan Wilson PA SOB (shortness of breath) [...] Description 04/29/2025 10:00 AM EST Office Visit [facility] [address] [place] [address] Sheridan Wilson PA 8 [place] [address] Erin Mcdonnell, OT [address] [place] [address] [email or web address] 05/06/2025 10:00 AM EST Office Visit [facility] [address] [place] [address] Sheridan Wilson PA 8 [place] [address] Erin Mcdonnell, OT [address] [place] [address] [email or web address] 05/14/2025 3:00 PM EST Appointment [facility] [address] [place] [address] Sheridan Wilson PA 8 [place] [address] 08/07/2025 2:15 PM EST Appointment [facility], Bone Density - Main [facility] [address] [place] [address] Sheridan Wilson PA [address] [place] [address] Health Maintenance Due Date Last Done Comments [...] Devices Not on file Insurance [facility]IC[facility] MEDIC[facility] MEDICARE [facility]PLACEMENT [facility] MEDICARE REPLACEMENT [place] [employer] MEDICARE REPL[facility]EMENT [facility] Care Teams Eeg Technologist Relationship Specialty Start Date End Date Sheridan Wilson PA [address] [place] [address] PCP - General Physician Corridor Redevelopment Manager 04/02/25 Additional Source Comments The information contained in this document represents components of the legal health record. It is not the complete legal health record.[facility]
--- OUTSIDE RECORDS SUMMARY | 2025-04-24 09:02 | XMS_ITS | Encounter Summary ---
Author Organization [employer] Address 75 [facility] 7 [place] [address] Care Team Providers Care Retinal Angiographer Name Role Phone Sheridan Wilson PA-C Primary Care Provider [phone] Encounter Details Date Type Department Care Team ([facility] st Contact Info) Description 01/14/2025 Telephone [facility] [address] [place] [address] Sheridan Wilson PA-C [address] [place] [address] Social History Tobacco Use Types Packs/Day [...] the past 12 months, has t he [employer], gas, oil or water [employer] threatened to shut off services in your [...] 10:12 AM EDT Verified Insurance: Yes Referral Office:[facility] General [facility] Diagnosis Code:K57.20 Number of Visits Needed:12 NPI# of Facility: NPI# of Provider being referred to:[id number] Phone #: [phone] Fax #: [phone] Date of Service : 10/24/24 documented in this encounter Plan of Treatment Upcoming Encounters Date Type Department Care Team (Late st Contact Info) Description 05/02/2025 10:00 AM EST Office Visit [facility] 8 [place] [address] Sheridan Wilson PA-C [address] [place] [address] documented as of this encounter Visit Diagnoses Not on filedocumented in this encounter Additional Health Concerns Assessment Noted Time PHQ-9 Depression Total Score: 6 09/21/19 25 2:24 PM EDT documented as of this encounter Care Teams Retinal Angiographer Relationship Specialty Start Date End Date Sheridan Wilson PA-C [address] [place] [address] PCP - General Family Medicine 09/03/24 documented as of this encounter
--- OUTSIDE RECORDS SUMMARY | 2025-04-24 09:02 | XMS_ITS | Clinical Summary ---
Author Organization [employer] Address 75 [facility] 7t [place] [address] Care Team Providers Care Web Services Architect Name Role Phone Sheridan Wilson PA-C Primary Care Provider [phone] Allergies No known active allergies Medications Multiple [...] Description 04/18/2025 10:00 AM EST Office Visit [address] [address] Sheridan Wilson PA-C Encounter for smoking cessation counseling (Primary Dx); Raynaud's disease without gangrene; Neuroforaminal stenosis of lumbar spine 04/11/[address] [address] Sheridan Wilson PA-C Anxiety; Spinal stenosis of lumbar region, unspecified whether neurogenic claudication present 2025 Orders Only [facility] Information Management [address] [place] [address] Provider, Not In System 04/07/[address] [address] Sheridan Wilson PA-C Spinal stenosis of cervicothoracic region; Neuroforaminal stenosis of lumbar spine 04/02/2025 8:20 AM EDT Office Visit [address] [address] Sheridan Wilson PA-C Encounter for pain management (Primary Dx); Encounter for long-term (current) use of medications; Spinal stenosis of cervicothoracic region; Neuroforaminal stenosis of lumbar spine 04/02/2025 Orders Only [facility] [address] [address] Sheridan Wilson PA-C 03/27/2025 10:20 AM EDT Office Visit [address] [phone] Sheridan Wilson PA-C Trigger ring finger of left hand (Primary Dx); Spinal stenosis of cervicothoracic region; Neuroforaminal stenosis of lumbar spine; Hand swelling 03/27/[address] [address] Sheridan Wilson PA-C 03/20/[address] [address] Sheridan Wilson PA-C 03/12/2025 3:40 PM EDT Office Visit [address] [address] Sheridan Wilson PA-C Polyarthralgia (Primary Dx); Encounter for immunization; Elevated antinuclear antibody (JUDI) level; Shortness of breath; Neuroforaminal stenosis of lumbar spine 03/12/[address] [address] Sheridan Wilson PA-C 03/12/2025 Telephone [facility] [address] [facility] [address] [place] [phone] Sheridan Wilson PA-C 03/06/2025 Orders Only [facility] Information Management [address] [place] [address] Provider, Not In System 03/05/[address] [phone] Sheridan Wilson PA-C from Last 3 Months [...] Description 05/02/2025 10:00 AM EST Office Visit [address] [phone] Sheridan Wilson PA-C 8 [place] [address] Health Maintenance Due Date Last Done Comments CT Colonography 1957 FIT DNA/Cologuard 1957 FIT 1957 FOBT 1957 Sigmoidoscopy 1957 Hepatitis C Screening 1975 DTaP/Tdap/Td Vaccines (1 - Tdap) 01/18/2018 01/17/2018 COVID-19 Vaccine ( season) 2025 03/12/2025, 04/01/2024, 05/02/2023, Additional history exists Depression Screening 09/20/2025 09/20/2024, 09/21/19 SDOH Screening 09/20/2025 09/20/2024 Mammogram 11/15/2025 11/15/2024 Alcohol/Substance Use Screening 12/25/2025 12/25/2024 Tobacco Screening 04/02/2026 04/02/2025 Colonoscopy 03/10/2028 03/10/2023 Colorectal Cancer Screening 03/10/2028 Lipid Panel 10/30/2029 10/30/2024 RSV Patients and Patients Aged 60 years or older (1 - 1-dose 75+ series) 2032 Zoster Vaccines Completed 09/15/2021, 07/05/2021 Pneumococcal Vaccine: 50+ Years Completed 12/21/2022 Influenza Vaccine Completed 03/12/2025, , 05/02/2023, Additional [...] Routine 01/22/2025 Chronic pain of right knee MAMMOGRAPHY Routine 11/15/2024 11:04 AM EDT LIPID PANEL WITH REFLEX TO DIRECT LDL Routine 10/30/2024 11:09 AM EDT Lipid screening COLONOSCOPY Routine 03/10/2023 11:50 AM EDT from [...] Amphetamines NEGATIVE <10 ng/mL [facility] [place] Barbiturates NEGATIVE <10 ng/mL [facility] [place] Benzodiazepines NEGATIVE <0.50 ng/mL [facility] [place] Buprenorphine, Oral Fluid NEGATIVE <0.10 ng/mL [facility] [place] Cocaine, oral fluid NEGATIVE <5.0 ng/mL [facility] [place] Fentanyl NEGATIVE <0.10 ng/mL [facility] [place] Heroin Metabolite NEGATIVE <1.0 ng/mL [facility] [place] Marijuana, oral fluid POSITIVE(A) <2.5 ng/mL [facility] [place] THC 5.1(H) <2.5 ng/mL [facility] MDMA Screen, Oral Fluid NEGATIVE <10 ng/mL [facility] [place] Meprobamate NEGATIVE <2.5 ng/mL [facility] [place] Methadone, Oral Fluid NEGATIVE <5.0 ng/mL [facility] [place] Nicotine Metabolite POSITIVE(A) <5.0 ng/mL [facility] [place] Cotinine 59.6(H) <5.0 ng/mL [facility] Comment: Cotinine is a metabolite of nicotine. Opiates, oral fluid POSITIVE(A) <2.5 ng/mL [facility] [place] Codeine, Oral Fluid Negative <2.5 ng/mL [facility] [place] Dihydrocodeine Negative <2.5 ng/mL [facility] [place] Hydrocodone Negative <2.5 ng/mL [facility] [place] Hydromorphone, Oral Fluid Negative <2.5 ng/mL [facility] [place] Morphine Negative <2.5 ng/mL [facility] [place] Norhydrocodone Negative <2.5 ng/mL [facility] [place] Noroxycodone 6.0(H) <2.5 ng/mL [facility] Comment: Noroxycodone is a metabolite of oxycodone. Oxycodone 10.0(H) <2.5 ng/mL [facility] [place] Oxymorphone Negative <2.5 ng/mL [facility] [place] Phencyclidine, oral fluid NEGATIVE <10 ng/mL [facility] [place] Tapentadol NEGATIVE <5.0 ng/mL [facility] [place] Tramadol, Oral Fluid NEGATIVE <5.0 ng/mL [facility] [place] Zolpidem NEGATIVE <5.0 ng/mL [facility] [place] Comment: For additional information, please refer to http://education.[employer]/faq/TYG602 (This link is being provided for informational/ educational purposes only.) This drug testing is for medical treatment only. Analysis was performed as non-forensic testing and these results should be used only by healthcare providers to render diagnosis or treatment, or to monitor progress of medical conditions. For assistance with interpreting these drug results, please contact a [facility] Toxicology Specialist: [phone] ( ), M-F, 8am-6pm EST. These tests were developed and their analytical performance characteristics have been determined by [facility]. They have not been cleared or approved by the FDA. These assays have been validated pursuant to the CLIA regulations and are used for clinical purposes. 04/02/2025 9:40 AM EDT 04/02/2025 9:40 AM EDT us Sheridan Wilson PA-C LAB BODY FLUIDS AND STOOLS OR DERABLES Final Result [facility] [address], [place] [address] [facility] [address] [facility] [place] [address] * XR Spine Lumbar 1 View Only [...] AM EDT) Cholesterol, Total 246(H) <200 mg/dL [facility] [place] HDL Cholesterol 64 > OR = 50 mg/dL [facility] [place] Triglycerides 140 <150 mg/dL [facility] [place] LDL Cholesterol 156(H) mg/dL [facility] [employer] [place] Comment: Reference range: <100 Desirable range <100 mg/dL for primary prevention; <70 mg/dL for patients with CHD or diabetic patients with > or = 2 CHD risk factors. LDL-C is now calculated using the Cinthia calculation, which is a validated novel method providing better accuracy than the Friedewald equation in the estimation of LDL-C. Paul SS et al. MYRIAM. 2013;310(19): 0188-3191 (http://education.PicaHome.com/faq/DAJ823) Chol/HDLC Ratio 3.8 <5.0 (calc) [facility] [place] Non-HDL Cholesterol 182(H) <130 mg/dL [facility] [place] Comment: For patients with diabetes plus 1 major ASCVD risk factor, treating to a non-HDL-C goal of <100 mg/dL (LDL-C of <70 mg/dL) is considered a therapeutic option. Blood 10/30/2024 11:0 9 AM EDT 10/30/2024 11:10 AM EDT Narrative [facility] - 10/31/2024 5:11 AM EDT SPLIT 10/23/2024 FROM [id number] us Sheridan Wilson PA-C LAB BLOOD ORDERABLES Final Re sult [facility] [address] [place] [address] [facility] [place] [address] [place] [address] * Hm Colonoscopy (03/10/2023 11:50 AM EDT) us Not In System Provider HEALTH MAINTENANCE Edited Result - Final from Last 3 Months or Most Recently Relevant to Health Maintenance Insurance MEDICARE ADVANTAGE [facility] Care Teams Web Services Architect Relationship Specialty Start Date End Date Sheridan Wilson PA-C [address] [place] [phone] PCP - General Family Medicine 09/03/24
== END 2025-04-24 08:59 | disposition home or self-care (01) ==
LOC: HO.PMC 08:40
PROVIDERS: Visit Provider Anesthesiology
DX: M47.816 Spondylosis without myelopathy or radiculopathy, lumbar region (principal); M53.3 Sacrococcygeal disorders, not elsewhere classified; G89.4 Chronic pain syndrome; M46.1 Sacroiliitis, not elsewhere classified
CPT/HCPCS: 99213